=== PATIENT | female | born 1945 | race Caucasian/White ===

== ENCOUNTER 2017-04-01 17:53 | Inpatient (IN) | payer MEDICARE, OTHER ==
[~2017-04-01] VITALS: Ht 180.3 cm; Wt 73.0 kg
[~2017-04-01 17:53] MED LIST: ALLOPURINOL100 MG PO; ARICEPT10 MG PO; ASPIR 8181 MG PO; ATIVAN0.5 MG PO; BUSPIRONE HCL10 MG PO; CIPRO500 MG PO; CIPROFLOXACIN250 MG PO; COUMADIN2.5 MG PO; DIAZEPAM5 MG PO; DONEPEZIL HCL10 MG PO; DONEPEZIL HCL23 MG PO; DONEPEZIL PO; FUROSEMIDE20 MG PO; GEMFIBROZIL600 MG PO; GLIMEPIRIDE2 MG PO; HUMALOG100 UNIT/1 SUB-Q; HUMULIN 70100 UNIT/1 SQ; HYDROCORTISONE20 MG PO; IBUPROFEN IB200 MG PO; LANTUS SOL100 UNIT/1 SUB-Q; LANTUS100 UNIT/1 SUB-Q; LIDOCAINE HCL30 ML TOP; LISINOPRIL2.5 MG PO; LOPERAMIDE2 MG PO; LORAZEPAM0.5 MG PO; MAGNESIUM DR64 MG PO; MORPHINE SULFAT15 M1 PO; MORPHINE SULFAT15 MG PO; MORPHINE SULFAT30 M1 PO; MORPHINE SULFATE IR PO; MS CONTIN15 MG PO; MS CONTIN30 MG PO; NAMENDA XR28 MG PO; NAMENDA5 MG PO; NOVOLOG FL100 UNIT/1; NOVOLOG FL100 UNIT/1 SUB-Q; OMEPRAZOLE20 M1 PO; OMEPRAZOLE20 MG PO; OXYCODONE HCL10 MG PO; OXYCODONE HCL5 MG PO; ROXICODONE15 MG PO; SEROQUEL XR400 MG PO; SEROQUEL400 MG PO; TRAZODONE HCL150 MG PO; TRAZODONE HCL50 MG PO; VIT D; VITAMIN D250000 UNIT PO; VITAMIN D31000 UNI1 PO; WARFARIN SODIU2.5 MG PO; WARFARIN SODIUM5 MG PO; ZYLOPRIM100 MG PO; [UNRECOGNIZED DRUG - OTHER] PO
--- NOTE | 2017-04-01 21:10 | NUR ---
PT ARRIVED TO ROOM 120 FROM ER. PT HAS BEEN NOT FEELING WELL, LESS ENERGY. HAD MADE A "MED ERROR" AND DOUBLE UP SOME OF HER MEDS. SHE IS ALERT, AND ORIENTATED X 3. ABLE TO GET SELF TO HER BED OFF THE STRETCHER. SHE IS KNOWN TO THIS NURSE, AND ANSWERS QUESTION APPROPRIATELY. DR. DUNHAM HERE TO SEE HIM.
--- NOTE | 2017-04-01 21:30 | NUR ---
INFORMED OF PT BP.
--- NOTE | 2017-04-01 22:30 | NUR ---
ATE 100% SANDWICH, UP TO COMMODE TO VOID. SLEEPS OFF AND ON. HAS CHRONIC PAIN ISSUES, TAKES PAIN MEDS ROUTINELY. PT USES A FRONT WHEELED WALKER AT HOME, HAS A PAID CAREGIVER WHO COMES IN TO HER HOME HERE IN [place] AND ASSISTS, DOES HOUSEWORK. PT STATES SHE BATHES SELF, PUT HER PILLS IN PILL MINDERS HERSLEF. NS BOLUS INFUSING.
--- NOTE | 2017-04-02 00:15 | NUR ---
UP TO VOID, 800. ONE PERSON ASSIST, NO COMPLAINTS. USING CALL LIGHT APPROPRIATELY. SLEEPING PRIOR TO USING THE TOILET.
--- NOTE | 2017-04-02 02:21 | NUR ---
EYES CLOSED, RESP EVEN AND UNLABORED.
--- NOTE | 2017-04-02 05:22 | NUR ---
PT UP IN RECLINER CHAIR. TRIED TO VOID BUT UNSUCCESSFUL, SHE STATES NOT UNUSUAL FOR HER. OFTEN FEELS LIKE SHE NEEDS TO GO BUT THEN CAN'T. HAS VOIDED QUANITY SUFFICIENT THIS SHIFT. DOES NOT LIKE WATER, SAYS WATER MAKES HER VOMIT. HAS A DIET SODA AT CHAIR SIDE. HAS CALL LIGHT WITHIN HER REACH. LABS DRAWN PER ORDERS. PT IS A SBA WITH FWW.
--- NOTE | 2017-04-02 05:22 | NUR ---
PT IN BED, EYES CLOSED, RESP EVEN UNLABORED. HAS NOT USED CALL LIGHT FOR PAST 2 HOURS. IV INFUSING.
--- NOTE | 2017-04-02 06:55 | NUR ---
PT YAHIRY GOING BACK TO BED AFTER BEING UP IN CHAIR FOR COUPLE HOURS. HAS NOT HAD ANY COMPLAINTS. IV CONTINUES INFUSING. NO NAUSEA COMPLAINED OF. ONE PERSON ASSIST, HAS VOIDED 2 X SINCE ADMISSION, WITH NO COMPLAINTS OF DISCOMFORT.
--- NOTE | 2017-04-02 07:26 | NUR ---
PATIENT AWAKE RESTING IN BED. I BROUGHT IN MENU TO ORDER BREAKFAST. I ORDERED HER BREAKFAST AND GOT HER FRESH ICE WATER. PATIENT STATES SHE DOES NOT NEED ANYTHING AT THIS TIME. CALL LIGHT IS IN REACH.
--- NOTE | 2017-04-02 07:48 | NUR ---
BEDSIDE HANDOFF REPORT RECEIVED FROM BOILER HOUSE SUPERVISOR RN. PT RESTING IN BED. IV FLUIDS NS AT 125 ML/HR. PT DENIES NEEDS AT THIS TIME.
--- NOTE | 2017-04-02 07:59 | NUR ---
PT BLOOD GLUCOSE 98, SLIDING SCALE INSULIN HELD. ASSISTED PT WITH BREAKFAST TRAY SET UP. PT DENIES NEEDS AT THIS TIME.
--- NOTE | 2017-04-02 08:19 | NUR ---
PT ASSISTED TO BATHROOM, 1PA WITH FWW. PT COMPLETED BREAKFAST, ATE 75%.
--- NOTE | 2017-04-02 08:30 | NUR ---
PT RESTING IN BED. PT LUNG SOUNDS CLEAR. PT RATIGN PAIN 03/31, CHRONIC ARTHRITIS PAIN. PT WITH IV FLUIDS INFUSING AT 125 ML/HR. PT TOLERATING ADA DIET, 10 UNITS LEVEMIR GIVEN, SS HELD. PT 1PA TO BATHROOM, HAD LARGE BM. PT WITH EDEMA TO BILATERAL LOWER LEGS 1+. PT DENIES NEEDS AT THIS TIME.
--- NOTE | 2017-04-02 10:34 | NUR ---
PATIENT IS SLEEPING IN BED. DID NOT DISTURB.
--- NOTE | 2017-04-02 11:29 | NUR ---
PT ASSISTED TO GERALDOKL IN [facility], TOLERATED WELL. PT DENIES NEEDS AT THIS TIME.
[2017-04-02] MEDS ORDERED: MORPHINE SULFAT15 MG PO (11:44)
--- NOTE | 2017-04-02 12:00 | NUR ---
PT RESTING IN CHAIR, EATING LUCH. PT LUNG SOUNDS CLEAR. PT ALERT/ORIENTED. NO ACUTE CHANGES. PT STATING SHE IS READY TO GO HOME. PT DENIES NEEDS AT THIS TIME.
[2017-04-02] MEDS ORDERED: CIPRO500 MG PO (12:44)
[2017-04-02] MEDS ORDERED: ZESTRIL2.5 MG PO (12:48)
--- NOTE | 2017-04-02 12:49 | NUR ---
MED REC COMPLETE--PATIENT INTERVIEW
--- NOTE | 2017-04-02 18:24 | EKG ---
[facility] [address] [place], [place] [address] Signed Normal sinus rhythm Normal ECG When compared with ECG of 05-FEB-2017 15:43, Nonspecific T wave abnormality, improved in Anterior leads Confirmed by CONCEPCION DUNHAM MD ([id number]) on 04/02/2017 6:24:08 PM Electronically Signed By: CONCEPCION DUNHAM MD 04/02/17 1824 PATIENT NAME: ERIK CHAVEZ Electrocardiogram DATE OF : 45 PHYSICIAN: CONCEPCION DUNHAM MD REPORT #: [id number] REPORT IS CONFIDENTIAL AND NOT TO BE RELEASED WITHOUT AUTHORIZATION
[2017-10-05] MEDS ORDERED: IBUPROFEN400 MG PO (12:18)
== END 2017-04-02 13:28 | disposition home or self-care (01) | DRG 682 ==
LOC: ED 17:53 → MS 17:54
PROVIDERS: ADMIT Internal Medicine
DX: N17.9 Acute kidney failure, unspecified (principal); G93.41 Metabolic encephalopathy; N39.0 Urinary tract infection, site not specified; F11.20 Opioid dependence, uncomplicated; E11.9 Type 2 diabetes mellitus without complications; Z79.4 Long term (current) use of insulin; F31.9 Bipolar disorder, unspecified; G30.9 Alzheimer's disease, unspecified; F02.80 Dementia in other diseases classified elsewhere, unspecified severity, without behavioral disturbance, psychotic disturbance, mood disturbance, and anxiety; G89.4 Chronic pain syndrome; K21.9 Gastro-esophageal reflux disease without esophagitis; Z66 Do not resuscitate; Z86.718 Personal history of other venous thrombosis and embolism; E86.0 Dehydration; F41.9 Anxiety disorder, unspecified
CPT/HCPCS: 36415; 71010; 80053; 81001; 83735; 84484; 85025; 87077; 87088; 87186; 93005; 93010; G0480; J0744; J7030

== ENCOUNTER 2017-04-08 22:01 | Emergency (ER) | payer MEDICARE, OTHER ==
[~2017-04-08] VITALS: Ht 180.3 cm; Wt 70.8 kg
[~2017-04-08 22:01] MED LIST changes: +ZESTRIL2.5 MG PO
[2017-10-05] MEDS ORDERED: IBUPROFEN400 MG PO (12:18)
== END 2017-04-08 22:56 | disposition home or self-care (01) ==
LOC: ED 22:01
DX: G89.29 Other chronic pain (principal); M25.551 Pain in right hip; W18.30XA Fall on same level, unspecified, initial encounter; E11.9 Type 2 diabetes mellitus without complications; N19 Unspecified kidney failure; I25.2 Old myocardial infarction; I10 Essential (primary) hypertension; G30.9 Alzheimer's disease, unspecified; F02.80 Dementia in other diseases classified elsewhere, unspecified severity, without behavioral disturbance, psychotic disturbance, mood disturbance, and anxiety; Z86.718 Personal history of other venous thrombosis and embolism; Z88.0 Allergy status to penicillin; Z88.4 Allergy status to anesthetic agent; Z88.1 Allergy status to other antibiotic agents; Z88.7 Allergy status to serum and vaccine; Z88.8 Allergy status to other drugs, medicaments and biological substances; Z90.710 Acquired absence of both cervix and uterus; Z91.040 Latex allergy status; Z88.2 Allergy status to sulfonamides; Z79.4 Long term (current) use of insulin; Z79.899 Other long term (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
CPT/HCPCS: 99282

== ENCOUNTER 2017-04-10 12:52 | Inpatient (IN) | payer MEDICARE, OTHER ==
[~2017-04-10] VITALS: Ht 180.3 cm; Wt 70.9 kg
--- NOTE | 2017-04-10 18:08 | NUR ---
PT ARRIVED TO ROOM 129 FROM ER VIA STRETCHER. PT TRANSFERRED TO BED WITH 2 PERSON ASSIST. IVF NORMAL SALINE STARTED AT 100 MLS/HR. ABG COMPLETED BY RT PT ON 3L PER NC WITH SATS 100%. VS TAKEN AND ASSESSMENT COMPLTED. PT DRANK 100% OF CLEAR LIQ DIET. PT MORE AWAKE AND WATCHING TV. HOB ELEVATED, LOWER EXTREMITIES ELEVATED ON PILLOW AND ICE PACK APPLIED TO LEFT ANKLE.
--- NOTE | 2017-04-10 18:55 | NUR ---
PT C/O OF LEFT ANKLE AND KNEE PAIN AND RIGHT HIP PAIN "10". PT MEDICATED WITH TYLENOL 500 MG PO.
--- NOTE | 2017-04-10 19:18 | NUR ---
SATS DECREASED TO 83-85% ON RA WHILE ASLEEP. 02 PLACED AT 2L PER NC, SATS INCREASED TO 99%. PT AWAKENS TO VOICE AND PLACED ON BEDPAN TO VOID.
--- NOTE | 2017-04-10 20:36 | NUR ---
Patient unable to void on bedpan. Up to [facility] with 2 staff members and was non-weight bearing on left leg. Moved well to the commode. Unable to void. Difficulty when moving back to bed due to right knee pain. States "it is broken also". Patient keeps stating "why dont you let me " "why all this commotion over me". Reassurance given. Patient is cooperative with care. No other changes noted.
--- NOTE | 2017-04-10 23:05 | NUR ---
PATIENT HAS YET TO VOID. BLADDER SCANNED FOR 800CC AFTER TRYING TO VOID ON THE BEDPAN AND WAS ASSISTED TO BEDSIDE COMMODE. ON COMMODE SHE HAD A LARGE SOFT STOOL. UPON RETURN TO BED SHE WAS BLADDER SCANNED AND DR DUNHAM WAS NOTIFIED. ORDER TO INSERT VIVEROS WAS OBTAINED.
--- NOTE | 2017-04-10 23:21 | NUR ---
VIVEROS CATHETER PLACED WITHOUT DIFFICULTY. PATIENT IS ALLERGIC TO IODINE SO DASHAWN AREA WAS CLEANED WITH BABY WIPES AND BENZALKONIUM CHLORIDE TOWLETTES.
--- NOTE | 2017-04-10 23:24 | NUR ---
DR DUNHAM INFORMED OF PATIENT NOT VOIDING SINCE ADMISSION DESPITE MULTIPLE ATTEMPTS ON COMMODE AND BEDPAN. BLADDER SCANNED FOR 800CC. ORDER FOR VIVEROS OBTAINED.
--- NOTE | 2017-04-11 02:51 | NUR ---
PT SLEPT APPROXIMATELY 1.5 HOURS. STATES SHE IS HAVING HORRIBLE LEG PAIN. REPOSITIONED FOR COMFORT AND ICE ON THE LEFT LOWER LEG. PAIN MEDS GIVEN ORDERED. NO OTHER CHANGES NOTED.
--- NOTE | 2017-04-11 07:53 | NUR ---
DR. PARKS IN TO ASSESS PT. FX BOOT ORDERED.
--- NOTE | 2017-04-11 08:09 | NUR ---
ACCU CHECK 193, 2 UNITS NOVOLOG INSULIN GIVEN IN LEFT ARM. DR. DUNHAM IN TO ASSESS PT.
--- NOTE | 2017-04-11 09:10 | NUR ---
PT UP TO BSC WITH 2 PERSON ASSIST. PT HAD BM. RT HERE AND FX BOOT ON PT.
--- NOTE | 2017-04-11 10:01 | NUR ---
PT TRANSFERRED FROM [facility] TO SHOWER CHAIR WITH FX BOOT IN PLACE. BOOT REMOVED AND SHOWER GIVEN. PT RETURNED TO ROOM 129 AND TRANSFERRED TO JOSEPHINE CHAIR WITH FX BOOT IN PLACE. LOWER EXTREMITIES ELEVATED AND ICE APPLIED TO LEFT ANKLE AREA. ORAL CARE COMPLETED. OUTREACH PROFESSIONAL IN TO VISIT WITH PT.
--- NOTE | 2017-04-11 10:27 | NUR ---
FIELD START IV IN LEFT ARM DC'D WITH CATH INTACT. 20 GAUGE IV INSERTED IN RIGHT FOREARM AND FLUSHED WITH 10 MLS NORMAL SALINE. PT CARLOS ALBERTO WELL.
--- NOTE | 2017-04-11 10:58 | NUR ---
PT C/O OF LEFT FOOT PAIN "08/01". MEDICATED WITH TYLENOL 500 MG PO.
--- NOTE | 2017-04-11 11:41 | NUR ---
O.T. HERE TO VISIT WITH PT.
--- NOTE | 2017-04-11 11:50 | NUR ---
ASSESSMENT COMPLETED, PT REMAINS IN JOSEPHINE CHAIR WITH FEET ELEVATED.
[2017-04-11] MEDS ORDERED: GABAPENTIN100 MG PO (12:31)
[2017-04-11] MEDS ORDERED: LISINOPRIL2.5 MG PO (12:33)
[2017-04-11] MEDS ORDERED: MAG6464 MG PO (12:34)
--- NOTE | 2017-04-11 12:50 | NUR ---
PT UP TO BSC WITH 2 PERSON ASSIST,HAD LARGE BM. RETURNED TO JOSEPHINE CHAIR AND TRANSFERRED TO ROOM 116 ON MED/SURG. REPORT GIVEN TO CAMELIA PEREZ.
--- NOTE | 2017-04-11 13:00 | NUR ---
PT TRANSFERRED FROM CCU TO ROOM 116. ORIENTED TO ROOM AND CALL LIGHT. ASSESSMENT COMPLETE. VSS. POC DISCUSSED WITH PT. PT AGREEABLE.
--- NOTE | 2017-04-11 14:15 | NUR ---
MED REC COMPLETE WITH MEDICATION LIST FROM [facility] AND [facility] REFILL HISTORY.
--- NOTE | 2017-04-11 15:00 | NUR ---
SCHEDULED MEDS AND WARMS BLANKETS PROVIDED. PT RESTS COMFORTABLY.
--- NOTE | 2017-04-11 17:15 | NUR ---
PT BEDSIDE BLOOD GLUCOSE 174. PT REFUSES 1 UNIT DOSE OF NOVOLOG INSULIN. DINNER, 1800 ABDIEL ADA DIET EATEN.
--- NOTE | 2017-04-11 18:00 | NUR ---
VISITS WITH MANAGER STORY. DENIES NEEDS
--- NOTE | 2017-04-11 21:09 | NUR ---
PATIENT BLOOD SUGAR CHECK 213 - PATIENT TO RECEIVE 2 UNITS NOVOLOG AND LEVEMIR 10 UNITS SCHEDULED. PATIENT REFUSES NIGHT INSULIN - "I DON'T NEED IT AND WON'T TAKE THAT TONIGHT" - DR DUNHAM NOTIFIED VIA TELEPHONE - NO NEW ORDERS
--- NOTE | 2017-04-12 02:45 | NUR ---
PATIENT RESTING IN BED, DENIES COMPLAINTS AT THIS TIME. LLE ELEVATED
--- NOTE | 2017-04-12 06:05 | NUR ---
PATIENT SLEPT WELL THRU THE NIGHT. LLE ELEVATED ON PILLOW, PATIENT REPOSITIONED NEEDED. VIVEROS DRAINING YELLOW URINE QS.
--- NOTE | 2017-04-12 07:45 | NUR ---
patient was asleep i woke her up to ask about am care, she said she would call when she was ready and went back to sleep. will check back in when her breakfast arrives.
--- NOTE | 2017-04-12 08:30 | NUR ---
PT RESTING IN BED WITH EYES CLOSED, AWOKE EASILY TO VOICE. PT ORIENTED TO ALL. MEDICATED WITH PRN NORCO PER REQUEST FOR 7/10 GENERALIZED PAIN. DENIES NAUSEA. LEFT FOOT ELEVATED ON PILLOWS, BOOT IN PLACE. CALLS APPROPRIATELY.
--- NOTE | 2017-04-12 09:30 | NUR ---
PT WORKED WITH PCamposT. PT UP TO RECLINER WITH 1PA AND FWW. CALL LIGHT WITHIN REACH.
--- NOTE | 2017-04-12 10:15 | NUR ---
PATIENT WAS GOING TO GET INTO THE SHOWER, HER WOUND BEGAN TO BLEED, NURSE IS CHANGING HER DRESSING AND WE WILL RE ADRESS HAVING A SHOWER AFTER THE DOCTOR EXAMS HER.
--- NOTE | 2017-04-12 11:15 | NUR ---
PT ASSISTED BACK TO BED FROM RECLINER. TRANSFERED WITH WITH SBA AND FWW. PERSONAL ITEMS AND CALL LIGHT WITHIN REACH.
--- NOTE | 2017-04-12 11:56 | NUR ---
FELICE JOEL'Sonny AT THIS TIME, PT CARLOS ALBERTO WELL.
--- NOTE | 2017-04-12 14:41 | NUR ---
PT LYING IN BED WITH EYES CLOSED, RESP EVEN AND UNLABORED.
--- NOTE | 2017-04-12 17:43 | NUR ---
PT ASSISTED TO COMMODE FROM RECLINER, 1 PA WITH WALKER. PT ATTEMPTING TO VOID.
--- NOTE | 2017-04-12 18:06 | NUR ---
PT UP TO CHAIR THIS SHIFT, WORKED WITH Raul HUDDLESTON FOR C/O GENERALIZED PAIN. LEFT FOOT KEPT ELEVATED WITH BOOT IN PLACE. ADA DIET WITH BG CHECKS. FELICE SHUKLA, PT DUE TO VOID. ALERT AND ORIENTED THROUGHOUT SHIFT. CALLS APPROPRIATELY.
--- NOTE | 2017-04-12 18:25 | NUR ---
PT HAS ATTEMPTED TO VOID WITH NO SUCCESS. BLADDER SCANNED FOR 442ML. NOTIFIED DR. DUNHAM. ORDERS TO MONITOR AND REASSESS LATER.
--- NOTE | 2017-04-12 21:00 | NUR ---
CURRENTLY UP ON BSC. TOETOUCH WT BEAR LT FOOT, RIGHT KNEE AND ANKLE ACEWRAPPED. STATES RIGHT LEG HURTS WELL. MED WITH PRN PAIN MEDICATION PRIOR TO TRANSFER. PT STATES HER CAREGIVER WAS "fired by the state", VISITED WITH PT HER OPTIONS OF SNF DUE TO NEEDING MORE CARE AT THIS TIME. SHE CONTINUES TO FILL HER OWN PILL MINDERS, DESPITE HER LIMITED EYESITE, AND STATED MEMORY ISSUES. THIS PT IS KNOWN TO THIS NURSE FOR 4+ YEARS IN AN ASSISTED LIVING SETTING WHERE SHE RESIDED FOR SEVERAL YEARS PRIOR TO LIVING INDEPENDENTLY.
--- NOTE | 2017-04-13 00:45 | NUR ---
PT WOKE WHEN DOOR OPENED. HAS BEEN "SLEEPING" SHE STATES.
--- NOTE | 2017-04-13 02:32 | NUR ---
COMPLAINS PAIN ALL OVER, WANTED UP IN HER CHAIR. MED WITH PRN PAIN MED. PT REQUESTS A SHOWER TODAY. WILL LET THE DAYSHIFT RN KNOW AND WILL BE ARRANGED.
--- NOTE | 2017-04-13 04:43 | NUR ---
EYES CLOSED, RESP EVEN AND UNLABORED.
--- NOTE | 2017-04-13 06:40 | NUR ---
PT CURRENTLY UP IN HER CHAIR. NEEDS REMINDERS TO TOUCH TOE WT BEAR LEFT FOOT, COMPLAINS HER RIGHT LEG HURTS MORE. HAS BEEN MEDICATED FOR PAIN, HAS CHRONIC PEARL MAKER PAIN COMPLAINTS. VOIDED 700 AFTER 0630, PT STATES SHE GOES "AROUND THIS TIME". FX BOOT REMAINED ON LEFT FOOT, PT SAT UP DURING NIGHT IN CHAIR, STATES SHE DIDN'T SLEEP MUCH. DID SEE PT WITH EYES CLOSED SEVERAL TIMES BUT PT FEELS SHE DIDN'T SLEEP WELL, DID STATE SHE SLEPT "ALOT" YESTERDAY.
--- NOTE | 2017-04-13 07:51 | NUR ---
PT SITTING UP IN RECLINER, EATING BREAKFAST. AM BG 128, NO SSI INDICATED. PT RATED PAIN 8/10, "ALL OVER", GAVE NORCO 5/325 MG 1 TAB PO PRN. LEFT FOOT/ANKLE IN BOOT, PT HAS CHRONIC NEUROPATHY, CMS WNL WITH EXCEPTION OF CHRONIC NUMBNESS TO FEET AND TOES.
--- NOTE | 2017-04-13 11:49 | NUR ---
PT UP TO BEDSIDE COMMODE, HAD LARGE FORMED SOFT BM, THEN TO RECLINER WITH 1 PERSON ASSIST WITH FWW, USING TTWB TO LLE. BG CHECKED, 176, WHICH CALLS FOR 2 UNITS SSI. PT REFUSED SSI.
--- NOTE | 2017-04-13 12:48 | NUR ---
PT C/O 10/10 PAIN "ALL OVER". GAVE NORCO 5/325 MG 2 TABS PO. PT SITTING UP IN RECLINER, IS USING INSENTIVE SPIROMETER WITH COACHING FROM RESPIRATORY THERAPIST.
[2017-04-13] MEDS ORDERED: HYDROCODON-ACE1 EA10 PO (13:29)
[2017-04-13] MEDS ORDERED: SEROQUEL XR400 MG PO (13:31)
--- NOTE | 2017-04-13 13:31 | NUR ---
PT REQUESTED ARTIFICIAL TEARS, NOTIFIED DR. DUNHAM OF PT'S REQUEST. DR. DUNHAM PLACED ORDER FOR ARTIFICIAL TEARS.
[2017-04-13] MEDS ORDERED: LANTUS SOL100 UNIT/1 SUB-Q (13:46)
--- NOTE | 2017-04-13 15:44 | NUR ---
PT GIVEN ARTIFICIAL TEARS PER HER REQUEST. DENIED OTHER NEEDS AT THIS TIME.
--- NOTE | 2017-04-13 16:23 | NUR ---
PT'S BG 155, WHICH CALLS FOR 1 UNIT SSI. PT REFUSED 1 UNIT SSI FOR BG OF 155.
--- NOTE | 2017-04-13 17:17 | NUR ---
PT C/O 9/10 PAIN TO BILATERAL ANKLES, "ALL OVER", AND HEADACHE. GAVE NORCO 5/325 MG PO PRN.
--- NOTE | 2017-04-13 17:33 | NUR ---
PT DOING WELL THIS SHIFT. TRANSFERS AND AMBULATES SHORT DISTANCES WITH 1 PERSON MINIMAL ASSIST, WITH VERBAL CUES TO MAINTAIN TOUCH TOE WEIGHT BEARING TO LEFT LOWER EXTREMITY. PT C/O GENERALIZED PAIN, WELL PAIN TO BILATERAL ANKLES, PRN NORCO GIVEN, LAST DOSE AT 1716, 2 TABS. URINE OUTPUT QUANTITY SUFFICIENT. HAD BM THIS SHIFT. LUNGS CTA, PT ON RA.
--- NOTE | 2017-04-13 20:03 | NUR ---
PT RESTING IN BED CURRENTLY. STATES SHE DOESN'T FEEL GREAT, THINKS HER COLD SX HAVE RETURNED, NO NASAL DRAINAGE, NO COUGH, HAS CHRONIC PAIN WHICH SHE TAKES MEDICATION FOR ROUTINELY A PRN AT HOME. STATES HER RIGHT LEG HURTS WORSE THAN THE LEFT, CMS ADEQUATE TO BOTH FEET, HAS NEUROPHATHY IN FEET, WITH DECREASE SENSATION.
--- NOTE | 2017-04-13 22:30 | NUR ---
IN BED, EYES OPEN WHEN RN CAME INTO ROOM. SAYS SHE HASN'T BEEN SLEEPING. STATES SHE NAPPED SEVERAL TIMES TODAY.
--- NOTE | 2017-04-14 02:32 | NUR ---
PT WITH EYES CLOSED, RESP EVEN AND UNLABORED. DID NOT OPEN EYES WHEN DOOR OPENED.
--- NOTE | 2017-04-14 04:26 | NUR ---
PT COMPLAINED OF PAIN ALL OVER. MEDICATED. USED COMMODE,ONE PERSON ITZEL ASSIST WITH FRONT WHEELED WALKER
--- NOTE | 2017-04-14 05:53 | NUR ---
PT CURRENTLY SLEEPING. HAS BEEN MEDICATED FOR PAIN X 2 THIS SHIFT, PREFERING 2 NORCO VS ONE. CHRONIC BUYER PLANNER USE OF MS CONTIN AT HOME. LEFT ANKLE CMS INTACT, HAS NEUROPATHY. USES A FRONT WHEELED WALKER FOR TRANSFERS WITH ITZEL ASSISTANCE. RIGHT LEG CMS ADEQUATE, WRAPPED WITH KERLIX AT ANKLE WELL KNEE. STATED WHEN PAIN MED GIVEN EARLIER, "I HAVE SLEPT ALL NIGHT" WHICH IS BETTER THAN THE NIGHT BEFORE. ASKED WHEN SHE WOULD BE GOING TO [facility].
--- NOTE | 2017-04-14 07:44 | NUR ---
BEDSIDE REPORT RECEIVED FROM NAUN PEREZ. PT AWAKE SITTING UP IN BED. HISTORY OF ALZHEIMERS. WILL EXPECT DISCHARGE TO [place] TODAY. LEFT ANKLE IN SURGICAL BOOT. RIGHT ANKLE WRAPPED WITH RENE WRAP. NO COMPLAINTS AT THIS TIME.
--- NOTE | 2017-04-14 07:45 | NUR ---
PATIENT UP TO CHAIR FOR BREAKFAST. HANDS AND FACE WASHED. HAIR COMBED. ORAL CARE DONE. PATIENT REFUSED A BATH THIS AM. MAY TRY AGAIN BEFORE SHE GOES TO SNF TODAY. CALL BUTTON IN REACH. WARM BLANKET GIVEN. NO OTHER NEEDS AT THIS TIME.
--- NOTE | 2017-04-14 09:33 | NUR ---
FAXED CHART NOTES TO [facility], TALKED WITH SHELTON AT T. FAX INCLUDED FACESHEET, ER NOTES, H AND P, PROG NOTES, DC NOTE, IMAGING, MEDS, LABS, AND PT AND OT EVAL AND NOTES.
--- NOTE | 2017-04-14 09:54 | NUR ---
PATIENT RESTING IN BED WITH EYES CLOSED. CALL BUTTON IN REACH.
--- NOTE | 2017-04-14 17:59 | NUR ---
PATIENT UP IN CHAIR WITH CALL BUTTON REACH. FRESH ICE GIVEN. NO OTHER NEEDS AT THIS TIME.
--- NOTE | 2017-04-14 18:17 | NUR ---
ALZHEIMER'S DEMENTIA. SBA/1PA WITH FWW-- TOE TOUCH WB LEFT LEG. SURGICAL BOOT ON. RENE WRAP ON RIGHT ANKLE AND KNEE. BEDSIDE COMMODE. NORUT X3 TODAY. TO [place] TOMORROW.
--- NOTE | 2017-04-14 19:45 | NUR ---
IN TO MEET PT, PT UP TO CHAIR. TRANSFERRED BACK TO BED WITH 1 PERSON ASSIST. FRESH WATER AND CALL LIGHT WITHIN REACH.
--- NOTE | 2017-04-14 22:20 | NUR ---
IN TO CHECK ON PT, PT UP TO BSC WITH ASSIST WITH WALKER AND STAND BY. CALL LIGHT WITHIN REACH.
--- NOTE | 2017-04-15 01:51 | NUR ---
IN TO CHECK ON PT, PT APPEARS TO BE SLEEPING. RESPIRATION EVEN, NO APPARENT DISTRESS. CALL LIGHT WITHIN REACH.
--- NOTE | 2017-04-15 03:45 | NUR ---
IN TO CHECK ON PT, PT APPEARS TO BE SLEEPING. RESPIRATIONS EVEN, NO APPARENT DISTRESS. WATER AND CALL LIGHT WITHIN REACH.
--- NOTE | 2017-04-15 04:37 | NUR ---
IN TO CHECK ON PT, PT AWAKE, ALERT, NO OBVIOUS SIGN OF DISTRESS. PT C/O GENERALIZED PAIN 05/01. NORCO GIVEN PER PT REQUEST. FRESH SODA GIVEN AND CALL LIGHT WITHIN REACH.
--- NOTE | 2017-04-15 05:37 | NUR ---
PT HAS RESTED WELL THROUGH OUT THE SHIFT. UP TO BSC WITH WALKER AND 1 PERSON ASSIT. PT IS TOUCH DOWN WEIGHT BEARING FOR L ANKLE FX. PT C/O GENERALIZED PAIN, NORCO GIVEN. PT AWAITING DISCHARGE TO [facility].
--- NOTE | 2017-04-15 09:02 | NUR ---
PT UP IN RECLINER FOR BREAKFAST. REPORTS PAIN 05/01, NORCO ADMINSTERED AM BED PASS. PT ALERT AND ORIENTED
--- NOTE | 2017-04-15 10:13 | NUR ---
THIS PT VERY RECEPTIVE TO PRAYER. SHE IS GLAD TO BE GOING TO [facility] THIS AFTERNOON FOR 3 TO 4 WEEKS OF RECOVERY, LOOKING FORWARD TO GETTING BACK TO HER OWN HOME. HER ATTITUDE IS VERY GOOD.
--- NOTE | 2017-04-15 11:09 | NUR ---
PT IS LYING IN BED.PT AGREED TO SHOWER.
--- NOTE | 2017-04-15 11:29 | NUR ---
PT UP TO SHOWER WITH ASIC ENGINEER AT THIS TIME.
--- NOTE | 2017-04-15 11:49 | NUR ---
ASSISTED PATIENT WITH SHOWER. DASHAWN CARE DONE. REFUSED SHAMPOO. ORAL CARE DONE. PATIENT SITTING UP IN BED EATING LUNCH. PACKED TO BE DISCHARGED TO SNF. CALL BUTTON IN REACH.
--- NOTE | 2017-04-15 12:17 | NUR ---
PT RESTING IN BED AFTER SHOWER HAS CONSUMED 50% OF LUNCH AND IS NOW WAITING FOR TRANSPORT TO [facility]. PT VERBALIZED NO FURTHER REQUESTS OR CONCERNS AT THIS TIME
--- NOTE | 2017-04-15 12:55 | NUR ---
PT REPORT CALLED TO [facility] TO COURTNEY PEREZ.
[2017-10-05] MEDS ORDERED: IBUPROFEN400 MG PO (12:18)
== END 2017-04-15 12:43 | disposition home or self-care (01) | DRG 70 ==
LOC: ED 12:52 → CCU 16:10 → MS 04-11 13:00
PROVIDERS: ADMIT Internal Medicine
DX: G93.41 Metabolic encephalopathy (principal); J96.02 Acute respiratory failure with hypercapnia; J96.01 Acute respiratory failure with hypoxia; I13.0 Hypertensive heart and chronic kidney disease with heart failure and stage 1 through stage 4 chronic kidney disease, or unspecified chronic kidney disease; N18.4 Chronic kidney disease, stage 4 (severe); E86.0 Dehydration; S70.01XA Contusion of right hip, initial encounter; W19.XXXA Unspecified fall, initial encounter; T40.2X5A Adverse effect of other opioids, initial encounter; I25.10 Atherosclerotic heart disease of native coronary artery without angina pectoris; I50.9 Heart failure, unspecified; S82.842A Displaced bimalleolar fracture of left lower leg, initial encounter for closed fracture; Z91.81 History of falling; R33.9 Retention of urine, unspecified; F31.9 Bipolar disorder, unspecified; F03.90 Unspecified dementia, unspecified severity, without behavioral disturbance, psychotic disturbance, mood disturbance, and anxiety; K21.9 Gastro-esophageal reflux disease without esophagitis; F41.9 Anxiety disorder, unspecified; G89.4 Chronic pain syndrome; I25.2 Old myocardial infarction
CPT/HCPCS: 36415; 36600; 51702; 51798; 71010; 73610; 80053; 80069; 81001; 82803; 83036; 83735; 85025; 87088; 94668; 97110; 97163; 97165; 97530; J2310; J7030

== ENCOUNTER 2017-10-05 11:37 | Inpatient (IN) | payer MEDICARE, OTHER ==
[~2017-10-05] VITALS: Ht 182.9 cm; Wt 81.7 kg
--- OUTSIDE RECORDS SUMMARY | ~2017-10-05 | XMS | Clinical Summary ---
Demographics + + + | Address | [address] | | | [place] [address] | + + + | Home Phone | | + + + | Preferred Language | Unknown | + + + | Marital Status | Single | + + + | Sikhism Affiliation | PRE | + + + [...] Team Providers + +------+ + | Care Alliance Consultant Name | Role | Phone | + +------+ + | Vladislav Goel MD | PP | Unavailable | + +------+ + Source Comments GAGAN is fully live on both [facility] and [facility] InPatient.Formerly [facility] Allergies + + + + + + [...] St | | Kimber is c/w MTX [id number] | + + +-------+ + | Fever [...] + + | Overview: From tape at [facility] - verbal history | + + Social [...]
--- OUTSIDE RECORDS SUMMARY | ~2017-10-05 | XMS | Clinical Summary ---
Demographics + + + | Address | [address] | | | [place] [address] | + + + | Home Phone | | + + + | Preferred Language | Unknown | + + + | Marital Status | Single | + + + | Amish Affiliation | PRE | + + + [...] Team Providers + +------+ + | Care Brazing Machine Operator Name | Role | Phone | + +------+ + | Vladislav Goel MD | PP | Unavailable | + +------+ + Source Comments GAGAN is fully live on both [facility] and [facility] InPatient.[facility] Allergies + + + + + + [...] St | | Kimber is c/w MTX [id number] | + + +-------+ + | Fever [...] + + | Overview: From tape at [facility] - verbal history | + + Social [...]
--- OUTSIDE RECORDS SUMMARY | ~2017-10-05 | XMS | Clinical Summary ---
Demographics + + + | Address | [address] | | | [place] [address] | + + + | Home Phone | | + + + | Preferred Language | Unknown | + + + | Marital Status | Single | + + + | Scientologist Affiliation | PRE | + + + [...] Team Providers + +------+ + | Care Filter Helper Name | Role | Phone | + +------+ + | Vladislav Goel MD | PP | Unavailable | + +------+ + Source Comments GAGAN is fully live on both [facility] and [facility] Allergies + + + + + [...] St | | Kimber is c/w MTX [id number] | + + +-------+ + | Fever [...] | Overview: From tape at [facility] - verbal history | + [...]
[~2017-10-05 11:37] MED LIST changes: +GABAPENTIN100 MG PO; +HYDROCODON-ACE1 EA10 PO; +MAG6464 MG PO
[2017-10-05] MEDS ORDERED: NORCO 7.5-3251 EACH PO (12:14)
[2017-10-05] MEDS ORDERED: VITAMIN D32000 UNIT PO (12:16)
[2017-10-05] MEDS ORDERED: FUROSEMIDE20 MG PO (12:20)
[2017-10-05] MEDS ORDERED: LISINOPRIL2.5 MG PO (12:21)
--- NOTE | 2017-10-05 18:47 | NUR ---
NEW ED ADMIT. FALL AT HOME. CONFUSED. WATCH CLOSELY! WILL PULL IV OUT IF NOT PAYING ATTENTION. HALLUCINATING. RIGHT HIP FX. LIVES ALONE AT HOME. VIVEROS REMOVED IN ED. WATCH UO. NON-OPERABLE HIP. LFA IV. CIPRO IV. D5NS @ 100. CLEAR LIQUID DIET.
--- NOTE | 2017-10-05 19:49 | NUR ---
RECIEVED REPORT FROM DAY SHIFT RN. PT UP IN BED. VISITORS AT BEDSIDE. TITRATED TO 1L O2 SATING AT 98%. PT REPORTS HEADACHE AT THIS TIME. AGREES TO PAIN MEDICATION TO BE TAKEN WITH NIGHT TIME MEDS. D5NS @ 100ML. PT ON CONTINUE PULSE OX. NO OTHER NEEDS AT THIS TIME. CALL LIGHT WITH IN REACH. VISIBLE FRO MNURSES STATION.
--- NOTE | 2017-10-05 20:11 | NUR ---
UPON REASSESSMENT OF PAIN PT REPORTED PAIN 9/10 WITH NO DECREASE IN PAIN. STATED SHE TAKES NORCO 2 PILLS 3 TIMES A DAY. I REMINDED THE PT HER NORCO WAS 7.5 MG AND WE WOULD GIVE IT A LITTLE MORE TIME TO KICK IN. PT AGREED.
--- NOTE | 2017-10-05 20:13 | NUR ---
PT SCD'S, HEEL PROTECTORS, AND TEDHOSE PUT IN PLACE. BLADDERED SCANNED. 344. ANDRINA INFORMED .MARCO ORDERS RECIEVED.
--- NOTE | 2017-10-05 21:03 | NUR ---
PATIENT HAS NOT VOIDED SINCE ARRIVAL TO THE FLOOR. PATIENT BLADDER SCANNED FOR 344ML. PATIENT PLACED ON BED RUSSELL AND WAS UNSUCESSFUL TO VOID. PATIENT DENIES ANY NEEDS AT THIS TIME. CALL LIGHT IN REACH AND BED ALARM PLACED ON FOR SAFETY.
--- NOTE | 2017-10-05 21:44 | NUR ---
PATIENT HAS NOT VOIDED SINCE ARRIVAL TO THE FLOOR. PLACED CALL TO DR. PARKS. RECEIVED VERBAL ORDER TO STRAIGHT CATH PATIENT SHOULD HER BLADDER SCAN BE 500-600ML, OFFER BED RUSSELL FIRST, AND TO ONLY STARIGHT CATH-NO VIVEROS LEFT IN PLACE. WILL CONTINUE TO MONITOR PATIENT.
--- NOTE | 2017-10-05 22:48 | NUR ---
PT APPEARS TO BE SLEEPING. RESPIRATIONS ARE EQUAL AND UNLABORED. WILL CONTINUE TO MONITOR PAIN LEVEL. WILL LET PT SLEEP AT THIS TIME.
--- NOTE | 2017-10-06 00:10 | NUR ---
BLADDER SCANNER SHOWED 572 ML. STRAIGHT CATHED PT WITH 14 FRINGE CATH. PT TOLLERATED WELL. 700ML RETURNED. URINE WAS CLEAR AND YELLOW. PT IS BACK TO BED. CALL LIGHT WITHIN REACH.
--- NOTE | 2017-10-06 02:20 | NUR ---
pt sleeping. respirations equal and unlabored. iv infusing. o2 @ 1l/min. visable from nursing station. call light within reach.
--- NOTE | 2017-10-06 04:30 | NUR ---
pt sleeping repisations equal and unlabored. pt visable from nursing station. calll ight within reach.
--- NOTE | 2017-10-06 05:20 | NUR ---
PATIENT ALERTED STAFF THAT SHE WAS HAVING AN INCREASE IN PAIN. PATIENT RATES PAIN AT A 8/10 "ALL OVER". PATIENT GIVEN PRN PAIN MEDICATION PER ORDER. PATIENT CONTINUES TO WEAR SCDS, TEDHOSE, AND HEEL PROTECTORS. PATIENT IS ABLE TO STATE WHERE SHE IS, WHY SHE IS HERE, THE DATE, MONTH AND YEAR. PATIENT IS SLOW TO ANSWER. PATIENT DENIES ANY FURTHER NEEDS. CALL LIGHT IN REACH AND BED ALARM IS ON FOR SAFETY.
--- NOTE | 2017-10-06 06:38 | NUR ---
VITALS AND I&OS DONE AND CHARTED. PT HAS NOT URINATED FOR ABOUT FOUR HOURS. HER RN RENAN IS AWARE. PT NEEDS NOTHING ELSE AT THIS TIME. BEDSIDE TABLE AND CALL LIGHT WITHIN REACH.
--- NOTE | 2017-10-06 06:52 | NUR ---
BLADDER SCANNED PT 627ML.
--- NOTE | 2017-10-06 07:05 | NUR ---
RN AND INSTRUMENT MAKER AND REPAIRER IN ROOM WITH PATIETNT. NO NEEDS AT THIS TIME.
--- NOTE | 2017-10-06 07:11 | EKG ---
[facility] [address] [place], [place] [address] Signed Normal sinus rhythm Normal ECG When compared with ECG of 01-APR-2017 18:26, No significant change was found Confirmed by PAULA DÍAZ MD ([id number]) on 10/06/2017 7:11:34 AM Electronically Signed By: PAULA DÍAZ MD 10/06/17 0711 PATIENT NAME: ERIK CHAVEZ Electrocardiogram DATE OF : 45 PHYSICIAN: PAULA DÍAZ MD REPORT #: [id number] REPORT IS CONFIDENTIAL AND NOT TO BE RELEASED WITHOUT AUTHORIZATION
--- NOTE | 2017-10-06 08:03 | NUR ---
PT AWAKE AND ALERT. APPEARS A&O X4. LFA IV INFUSING D5NS@100. CLEAR LIQUID TRAY AT BEDSIDE. PT REPORTS SHE IS "ALLERGIC TO WATER". PAIN 9/10 GENERALIZED. TOLERATING CLEAR LIQUID DIET. PEDAL PULSES +2 BILAT. WARM EXTREMITIES. WARM BLANKET PROVIDED. C/O BEING COLD.
--- NOTE | 2017-10-06 10:32 | NUR ---
PATIENT RESTING IN BED WATCHING TV. HANDS AND FACE WASHED. REFUSED ORAL CARE. PATIENT STATES THAT HER CAREGIVER IS BRINGING HER OWN ORAL CARE SUPPLIES FROM HOME. FRESH ICE WATER GIVEN. NO OTHER NEEDS AT THIS TIME.
--- NOTE | 2017-10-06 11:12 | NUR ---
pt transferred sba/1pa with physical therapist to [facility]. tolerated very well. pain in right hip minimal. 485ml on bladder scan after back in bed.
--- NOTE | 2017-10-06 12:48 | NUR ---
PATIENT BACK TO BED FROM BSC WITH FWW ONE PERSON ASSIST. PATIENT HAD EXTRA LARGE BM. RN IN ROOM TO INSERT VIVEROS CATH.
--- NOTE | 2017-10-06 13:41 | NUR ---
Medications reconciled RX bottles and Genna's records
--- NOTE | 2017-10-06 14:15 | NUR ---
PATIENT SITTING UP IN BED WATCHING TV. RN IN ROOM. NO OTHER NEEDS AT THIS TIME.
--- NOTE | 2017-10-06 17:28 | NUR ---
1PA FWW TO [facility] ABLE TO TRANSFER WELL. RIGHT HIP FX-- NON OPERABLE. ROOM AIR. LESS CONFUSED TODAY. PHYSICAL THERAPY. CASE RECORD CLERK SALESPERSON. MANASA S/L. ADA DIET.
--- NOTE | 2017-10-06 18:23 | NUR ---
READJUSTED PT IN BED. BOOSTED UP AND SCDs TURNED ON. ATE 100% OF DINNER.
--- NOTE | 2017-10-06 18:40 | NUR ---
PATIENT RESTING IN BED WATCHING TV. BED ALARM ON. CALL BUTTON IN REACH. NO OTHER NEEDS AT THIS TIME.
--- NOTE | 2017-10-06 19:10 | NUR ---
RECEIVED REPORT FROM CARMEN. PT IS AWAKE IN BED WITH VISITORS IN THE ROOM AT THIS TIME. PT HAS NO COMPLAINTS OF PAIN AT THIS TIME, AND HAS SCDS AND HEEL PROTECTORS IN PLACE.
--- NOTE | 2017-10-06 21:00 | NUR ---
PT IS AWAKE IN BED, AND WOULD LIKE TO GO TO SLEEP SOON. REPOSITIONED PT TO HELP WITH HIP PAIN SHE CANNOT HAVE MORE NORCO UNTIL LATER. PT HAS TEDHOSE ON, SCDS, AND HEEL PROTECTORS. BROUGHT PATIENT ICE REQUESTED. EVENING MEDICATIONS AND INSULIN ADMINISTERED PER EMAR. PT'S BS WAS 266. PT'S ASSESSMENT IS COMPLETE AND ENTERED. PT HAS NO FURTHER REQUESTS AT THIS TIME.
--- NOTE | 2017-10-07 00:14 | NUR ---
PATIENT ASKED FOR SNACKS. OFFERED 2 MELITON CRACKERS. ICE CHIPS FOR TEA.
--- NOTE | 2017-10-07 00:21 | NUR ---
PT MOVED TO ROOM 107 WITH HER PERMISSON. ALL BELONGINGS MOVED WITH HER. NEEDED CLOSER ROOM FOR ANOTHER PT.
--- NOTE | 2017-10-07 03:30 | NUR ---
PT IS AWAKE IN BED, ASKED IF SHE NEEDED PULSEOX ON CONTINUOUS. PT HAS BEEN MAINTAINING O2 SAT TURNED CONTINUOUS PULSEOX OFF. PT'S RT FOOT IS WARM AND PT REPORTS FEELING IN HER FOOT TO BE NORMAL FOR HER. SCDS, TEDHOSE, AND HEEL PROTECTORS IN PLACE. PT WAS NOT COMPLAINING OF PAIN BUT WHEN ASKED SAID SHE IS AN 8/10. GAVE PT 2, 7.5 NORCO FOR PAIN PER EMAR ORDERS. VIVEROS IN PLACE AND PT IS VOIDING QUANTITY SUFFICIENT YELLOW URINE. PT DOES NOT WANT ICE AT THIS TIME. IV FLUSHED WITH 10 MLS NS. PT HAS NO FURTHER REQUESTS AT THIS TIME.
--- NOTE | 2017-10-07 05:20 | NUR ---
PT IS RESTING WITH EYES CLOSED RR 14, PT IS FORGETFUL BUT HAS BEEN ALERT WHILE AWAKE. SHE TENDS TO FORGET WHEN SHE HAS HER PAIN MEDS AND TAKES CHRONIC PAIN MEDICINE AT HOME. PER REPORT PT'S PAIN MEDICATION WAS INCREASED TO 1-2 PILLS Q6H BUT PT SAYS SHE TAKES 2 PILLS Q4H. PT RECEIVED 2 NORCO AND IS RESTING COMFORTABLY AT THIS TIME. AES IN PLACE, WITH SCDS AND HEEL PROTECTORS. DURING ASSESSMENTS PT HAS REPORTED HER LEGS HAVE NORMAL SENSATION FOR HER D/T PERIPHERAL NEUROPATHY. ICE WAS OFFERED SEVERAL TIMES DURING SHIFT BUT PT DECLINED. PT HAS BEEN DRINKING TEA THAT SHE STATES IS MADE WITH PURIFIED WATER D/T ALLERGY TO WATER. PT WAS GIVEN INSULIN ORDERED FOR BS OF 266 AT HS.
--- NOTE | 2017-10-07 06:35 | NUR ---
STARTED IV CIPRO AND CLEARED PTS TABLE FOR BREAKFAST. PT HAS NO FURTHER REQUESTS AT THIS TIME.
[2017-10-07] MEDS ORDERED: HYDROCODON-ACE1 EA11 PO (08:30)
--- NOTE | 2017-10-07 08:43 | NUR ---
PT LYING IN BED NOW. SAT UP AT BEDSIDE TO EAT BREAKFAST. WATCHING TV NOW. SALINE LOCKED LFA IV. WILL PLAN TO DISCHARGE TODAY. PLAN FOR XRAY OF HIP AND HOME HEALTH CONSULT BEFORE DISCHARGE.
--- NOTE | 2017-10-07 10:12 | NUR ---
PT IN BED. SET UP FOR MELANIEKCampos NAIDU CHANGE. AM CARE. VITALS DONE
--- NOTE | 2017-10-07 11:44 | NUR ---
PT STATED SHE WANTED HER IV OUT. TOLD NURSE MORALES. NURSE MORALES TOLD ME THAT PT NEEDS TO URINATE ON HER OWN BEFORE SHE CAN GO HOME. GAVE PT A LARGE CUP OF TEA AND ORDERED HER SOME LUNCH.
--- NOTE | 2017-10-07 13:19 | NUR ---
PT URINATED 175ML ON BSC. WILL PLAN TO DISCHARGE PATIENT HOME AFTER FAMILY/FRIEND TRANSPORTATION ARRIVES FOR HER. EDUCATED TO RETURN TO EMERGENCY DEPARTMENT IF UNABLE TO URINATE AT HOME.
--- NOTE | 2017-10-07 14:15 | NUR ---
AT 1408, RUCHI RT CAME TO RN STATION, STATED THAT SHE BELIEVED PT HAD PASSED. THIS RN TO PT'S ROOM AT 1409, NO RESPIRATIONS NOTED, NO PULSE NOTED AT 1410 BY THIS RN OR BY DR. DÍAZ. PT WITHOUT PULSE OR RESPIRATIONS. PT'S FAMILY AT BEDSIDE.
--- NOTE | 2017-10-07 14:18 | NUR ---
AT 1413, NOTIFIED CARMEN, PT'S PRIMARY RN THAT PT HAD NO PULSE OR RESPIRATIONS. CARMEN TO PT'S ROOM.
--- NOTE | 2017-10-07 15:18 | NUR ---
PT RESTING IN BED. SHE IS ALERT AND ORIENTED. PT MENTIONED THAT SHE IS WAITING TO BE DC'D TODAY. APPARENTLY A RIDE HAS BEEN ARRANGED FOR PT. SHE SEEMED PLEASED I STOPPED BY, REQUESTED PRAYER. WILL FOLLOW NEEDED
--- NOTE | 2017-10-07 15:30 | NUR ---
FAXED CHART NOTES INCLUDING FACESHEET, ORDER, H AND P, DC NOTE, AND PT EVAL. TALKED WITH NAKUL ABOUT THIS.
--- NOTE | 2017-10-08 08:03 | DS ---
[facility] [address] [place], [place] [address] Signed ADMISSION DATE: 10/05/2017 DISCHARGE DATE: 10/07/2017 ADMISSION DIAGNOSIS: Right greater trochanteric fracture. DISCHARGE DIAGNOSIS: Right greater trochanteric fracture. PROCEDURE PERFORMED: None. BRIEF HISTORY: Erik is a 71-year-old female, who suffered a ground level fall and was found down on the ground by her caregiver. She was transported to the emergency department. Radiographs were relatively negative. CT scan was obtained, which showed a greater trochanteric fracture. The radiologist also read with an extension into the femoral neck. However, I cannot find that and disagree with that finding. I also reviewed that with Dr. Vasquez who agreed with me. We admitted the patient to the hospital for pain control. She was also quite disoriented and confused. She was found to have UTI. She also was taking probably more medication than she should have been. By the next day, her mentation had cleared considerably and she was back to her normal status. I do note this patient from prior injuries. She was mobilized with physical therapy and actually physical therapy had signed off on her by the day of discharge felt that she was back to her baseline of what she normally has at home. She feels like she does not want to go to snf facility and can take care of herself just well at home. We will discharge her to home with physical therapy on in-home basis along with home health. She is home bound and will need care for the next 4 to 6 weeks until her greater trochanter heals and she is able to bear weight on it. Again, she is in need of physical therapy for gait, walker training, toe-touch weightbearing, and quad strengthening. She is homebound due to being unable to leave her house secondary to the weakness, pain, and inability to walk on the right side. She will follow up with me in 10 to 14 days. Juancho Nice MD BA/YONATHANL /[id number] Electronically Signed By: JUANCHO NICE MD 10/08/17 0803 PATIENT NAME: ERIK CHAVEZ DISCHARGE SUMMARY DATE OF : 45 PHYSICIAN: JUANCHO NICE MD REPORT #: [id number] REPORT IS CONFIDENTIAL AND NOT TO BE RELEASED WITHOUT AUTHORIZATION [address] [place] [address] Signed Electronically Signed By: JUANCHO NICE MD 10/08/17 0803 PATIENT NAME: ERIK CHAVEZ DISCHARGE SUMMARY DATE OF : 45 PHYSICIAN: JUANCHO NICE MD REPORT #: [id number] REPORT IS CONFIDENTIAL AND NOT TO BE RELEASED WITHOUT AUTHORIZATION
== END 2017-10-07 15:50 | disposition home or self-care (01) | DRG 536 ==
LOC: ED 11:37 → MS 16:50
PROVIDERS: ADMIT Specialist
DX: S72.111A Displaced fracture of greater trochanter of right femur, initial encounter for closed fracture (principal); N39.0 Urinary tract infection, site not specified; W18.30XA Fall on same level, unspecified, initial encounter; E11.65 Type 2 diabetes mellitus with hyperglycemia; R09.02 Hypoxemia; I10 Essential (primary) hypertension; E11.40 Type 2 diabetes mellitus with diabetic neuropathy, unspecified; G30.9 Alzheimer's disease, unspecified; F02.80 Dementia in other diseases classified elsewhere, unspecified severity, without behavioral disturbance, psychotic disturbance, mood disturbance, and anxiety; Z79.4 Long term (current) use of insulin; Z88.0 Allergy status to penicillin; Z86.718 Personal history of other venous thrombosis and embolism; Z87.891 Personal history of nicotine dependence; Z90.710 Acquired absence of both cervix and uterus
CPT/HCPCS: 36415; 70450; 71045; 73502; 73700; 80053; 81001; 85025; 85610; 87077; 87088; 87186; 93005; 93010; 97162; J0744; J1170; J7030; J7042

== ENCOUNTER 2017-10-17 14:34 | Emergency (ER) | payer MEDICARE, OTHER ==
[~2017-10-17] VITALS: Ht 182.9 cm; Wt 70.3 kg
[~2017-10-17 14:34] MED LIST changes: +HYDROCODON-ACE1 EA11 PO; +NORCO 7.5-3251 EACH PO; +VITAMIN D32000 UNIT PO
--- OUTSIDE RECORDS SUMMARY | 2017-10-17 14:43 | XMS | Clinical Summary ---
Demographics + + + | Address | [address] | | | [place] [address] | + + + | Home Phone | | + + + | Preferred Language | Unknown | + + + | Marital Status | Single | + + + | Restorationism Affiliation | PRE | + + + | Race | White | + + + | Ethnic Group | Not or | + + + Author + + + | Author | [facility] | + + + | Organization | [facility] | + + + | Address | Unknown | + + + | Phone | Unavailable | + + + Support +------+ +---------+ + | Name | Relationship | Address | Phone | +------+ +---------+ + ECON | Unknown | | +------+ +---------+ + Care Team Providers + +------+ + | Care Crime Analyst Name | Role | Phone | + +------+ + | Vladislav Goel MD | PP | Unavailable | + +------+ + Source Comments GAGAN is fully live on both [facility] Ambulatory and [facility] InPatient.[facility] Allergies + + + + + + | Active Allergy | Reactions | Severity | Noted | Comments | | | | | Date | | + + + + + + | Bupropion Hcl | | | 07/15/20 | | | | | | 08 | | + + + + + + | Codeine | | | 07/15/20 | | | | | | 08 | | + + + + + + | Mirtazapine | | | 07/15/20 | | | | | | 08 | | + + + + + + | Gabapentin | | | 10/24/20 | | | | | | 08 | | + + + + + + | Penicillins | | | 10/24/20 | | | | | | 08 | | + + + + + + | Propoxyphene | | | 07/15/20 | | | N-Acetaminophen | | | 08 | | + + + + + + | Sulfa (Sulfonamide | | | 24/20 | | | Antibiotics) | | | 08 | | + + + + + + Current Medications + + +--------+---------+------+------+-------+ | Prescription | Sig. | Disp. | Refills | Star | End | Statu | | | | | | t | Date | s | | | | | | Date | | | + + +--------+---------+------+------+-------+ | hydrOXYzine 25 mg | 2 tablets PO QHS | | | | | Activ | | Oral Tablet | | | | | | e | + + +--------+---------+------+------+-------+ | lisinopril 10 mg | PO daily | | | | | Activ | | Oral Tablet | | | | | | e | + + +--------+---------+------+------+-------+ | SEROQUEL 200 mg | 2 tabs at night | | | | | Activ | | Oral Tablet | | | | | | e | + + +--------+---------+------+------+-------+ | trazodone 150 mg | 50mg twice daily | | | | | Activ | | Oral Tablet | | | | | | e | + + +--------+---------+------+------+-------+ | meclizine 25 mg | PO q 6h | | | | | Activ | | Oral Tablet | | | | | | e | + + +--------+---------+------+------+-------+ | INSULIN GLARGINE | 35 units qAM | | | | | Activ | | SC | | | | | | e | + + +--------+---------+------+------+-------+ | insulin aspart 100 | Inject under the | | | | | Activ | | unit/mL | skin (SUBC) three | | | | | e | | subcutaneous | times daily before | | | | | | | cartridge | meals. 8-25 units | | | | | | | | with meals | | | | | | + + +--------+---------+------+------+-------+ | memantine (NAMENDA | Take by mouth. | | | | | Activ | | XR) 28 mg oral | | | | | | e | | chantelle,KODAK sebastian | | | | | | | | 24hr | | | | | | | + + +--------+---------+------+------+-------+ | donepezil | Take 10 mg by mouth | | | | | Activ | | (ARICEPT) 10 mg oral | once daily in the | | | | | e | | tablet | evening. | | | | | | + + +--------+---------+------+------+-------+ | morphine 15 mg | Take 15 mg by mouth | | | | | Activ | | oral tablet | two times daily. | | | | | e | + + +--------+---------+------+------+-------+ | LORazepam 0.5 mg | Take 0.5 mg by mouth | | | | | Activ | | oral tablet | every four hours as | | | | | e | | | needed for anxiety. | | | | | | + + +--------+---------+------+------+-------+ | omeprazole 20 mg | Take 20 mg by mouth | | | | | Activ | | oral capsule,delayed | once daily. | | | | | e | | release(/EFREN) | | | | | | | + + +--------+---------+------+------+-------+ | warfarin 5 mg oral | Take 2.5 mg by mouth | | | | | Activ | | tablet | once daily. | | | | | e | + + +--------+---------+------+------+-------+ | hydrocortisone 10 | Take 1 tablet by | 90 | 1 | 08/2 | | Activ | | mg oral tablet | mouth once daily. | tablet | | 5/20 | | e | | | | | | 15 | | | + + +--------+---------+------+------+-------+ Active Problems + + + | Problem | Noted Date | + + + | Neuropathy, peripheral (HCC) | 07/21/2008 | + + + + + | Overview: I didn't recall findings on admit exam, but I do | | note reduced vibratory, soft, heat/cold & DTR's today (07/21). | | She notes she has had neuropathy for years. We need to review | | understanding of this. It is not her pressing issue. Perhaps | | from her DM.ICD10 | + + + + + | Pancytopenia, acquired | 07/18/2008 | + + + + + | Overview: Attributed to Methotrexate Toxicity, Associated | | with megaloblastic changes in smear, 'verbal' bone marrow from St | | Kimber is c/w MTX [id number] | + + +-------+ + | Fever | 07/18/2008 | +-------+ + + + | Overview: On admit, now resolved, being treated as 'febrile | | neutropenic' until cultures are neg x 72 hr | + + + + + | Diabetes mellitus (HCC) | 07/18/2008 | + + + + + | Overview: ICD10 | + + + + + | Hypertension | 07/18/2008 | + + + | Chronic kidney disease | 07/18/2008 | + + + + + | Overview: Baseline 1.3 per notes | + + + + + | Bipolar affective disorder (HCC) | 07/18/2008 | + + + + + | Overview: Don't have much history on this. | + + + + + | Alzheimer disease | 07/18/2008 | + + + + + | Overview: I am NOT convinced she has Alzheimer's. We will | | complete a basic assessment during her admission, and review what | | has been done prior. She was on aracept, and notes 'acute' | | benefit/worsening when she misses doses. I am suspicious that | | she has this. If so, she states she has had it for 10 yrs (Age | | ~52 onset). 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 Does not | | describe convincing morning stiffness. This was her rationale | | for her recent methotrexate escalation. | + + + + + | Contact dermatitis | 07/18/2008 | + + + + + | Overview: From tape at [facility] - verbal history | + + Social History + +-------+ +--------+------+ | Tobacco Use | Types | Packs/Day | Years | Date | | | | | Used | | + +-------+ +--------+------+ | Former Smoker | | | | | + +-------+ +--------+------+ + +---+---+---+ | Smokeless Tobacco: | | | | | Never Used | | | | + +---+---+---+ + + +---------+ + | Alcohol Use | Drinks/We | oz/Week | Comments | | | ek | | | + + +---------+ + | No | | | | + + +---------+ + + + + | Sex Assigned at | Date Recorded | | | | + + + | Not on file | | + + + Last Filed Vital Signs + + + + | Vital Sign | Reading | Time Taken | + + + + | Blood Pressure | 141/68 | 05/12/2015 1:03 PM PDT | + + + + | Pulse | 103 | 05/12/2015 1:03 PM PDT | + + + + | Temperature | 37 C (98.6 F) | 05/12/2015 1:03 PM PDT | + + + + | Respiratory Rate | 20 | 05/12/2015 1:03 PM PDT | + + + + | Oxygen Saturation | 93% | 07/27/2008 11:36 AM PST | + + + + | Inhaled Oxygen | - | - | | Concentration | | | + + + + | Weight | 81.6 kg (180 lb) | 05/12/2015 1:03 PM PDT | + + + + | Height | - | - | + + + + | Body Mass Index | - | - | + + + + Plan of Treatment + + + + + | Health Maintenance | Due Date | Last Done | Comments | + + + + + | CHOLESTEROL | | | | | SCREENING | 6 | | | + + + + + | DIABETIC EYE EXAM | | | | | | 6 | | | + + + + + | HEMOGLOBIN A1C | | | | | | 6 | | | + + + + + | MONOFILAMENT FOOT | | | | | EXAM | 6 | | | + + + + + | URINE MICROALBUMIN | | | | | | 6 | | | + + + + + | CREATININE | | 01/17/2015, 07/27/2008, | | | | 6 | 07/26/2008, Additional history | | | | | exists | | + + + + + | INFLUENZA VACCINE | | 05/11/2013 | | | (FLU SHOT) | 7 | | | + + + + + Results Not on filefrom Last 3 Months"
--- OUTSIDE RECORDS SUMMARY | 2017-10-17 14:43 | XMS | Clinical Summary ---
Demographics + + + | Address | [address] | | | [place] [address] | + + + | Home Phone | | + + + | Preferred Language | Unknown | + + + | Marital Status | Single | + + + | Islam Affiliation | PRE | + + + [...] Team Providers + +------+ + | Care Transplant Case Manager Name | Role | Phone | + +------+ + | Vladislav Goel MD | PP | Unavailable | + +------+ + Source Comments GAGAN is fully live on both [facility] Ambulatory and [facility] InPatient.[facility] Allergies + + + + + [...] St | | Kimber is c/w MTX [id number] | + + +-------+ + | Fever [...] + + | Overview: From tape at [facility] - verbal history | + + [...]
== END 2017-10-17 16:25 | disposition home or self-care (01) ==
LOC: ED 14:34
DX: R33.9 Retention of urine, unspecified (principal); I25.2 Old myocardial infarction; I10 Essential (primary) hypertension; E11.9 Type 2 diabetes mellitus without complications; Z87.440 Personal history of urinary (tract) infections; Z87.891 Personal history of nicotine dependence; Z90.49 Acquired absence of other specified parts of digestive tract; Z88.0 Allergy status to penicillin; Z88.8 Allergy status to other drugs, medicaments and biological substances; Z91.041 Radiographic dye allergy status; Z88.2 Allergy status to sulfonamides; Z91.040 Latex allergy status; Z88.1 Allergy status to other antibiotic agents; Z91.013 Allergy to seafood; Z91.018 Allergy to other foods; Z79.4 Long term (current) use of insulin; Z79.899 Other long term (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
CPT/HCPCS: 51702; 51798; 81001; 99284

== ENCOUNTER 2017-12-12 20:19 | Emergency (ER) | payer MEDICARE, OTHER ==
[~2017-12-12] VITALS: Ht 182.9 cm; Wt 70.3 kg
--- OUTSIDE RECORDS SUMMARY | ~2017-12-12 | XMS | Clinical Summary ---
Demographics + + + | Address | [address] | | | [place] [address] | + + + | Home Phone | | + + + | Preferred Language | Unknown | + + + | Marital Status | Single | + + + | Rastafarian Affiliation | PRE | + + + [...] | + + + Support + + +---------+ + | Name | Relationship | Address | Phone | + + +---------+ + | EDGAR JEFFREY | ECON | Unknown | | + + +---------+ + Care Team Providers + +------+ + | Care Drain Tiler Name | Role | Phone | + +------+ + | Vladislav Goel MD | PP | Unavailable | + +------+ + Source Comments GAGAN is fully live on both [facility] and [facility] Allergies + + + + + + [...] + + | Penicillins | | | 07/15/20 | | | | | | 08 | | + + + + + + | Propoxyphene | | | 07/15/20 | | | N-Acetaminophen | | | 08 | | + + + + + + | Sulfa (Sulfonamide | | | 07/15/20 | | | Antibiotics) | | | [...] | | | | e | | capsule,romulo,ER | | | | | | | [...] | | | | e | | release(DR/EC) | | | | | | | [...] St | | Kimber is c/w MTX [id number] | + + +-------+ + | Fever [...] + + | Overview: From tape at [facility] - verbal history | + + [...] | + + + + + | DIABETES | | | | | SELF-MANAGEMENT | 6 | | | | EDUCATION | | | | + + + [...] | + + + + + | PNEUMOCOCCAL ADULT | | | | | (1 of 2 - PCV13) | 1 | | | + + + + [...]
--- OUTSIDE RECORDS SUMMARY | ~2017-12-12 | XMS | Clinical Summary ---
Demographics + + + | Address | [address] | | | [place] [address] | + + + | Home Phone | | + + + | Preferred Language | Unknown | + + + | Marital Status | Single | + + + | Mosque Affiliation | PRE | + + + [...] Team Providers + +------+ + | Care Cross Cut Sawyer Name | Role | Phone | + +------+ + | Vladislav Goel MD | PP | Unavailable | + +------+ + Source Comments GAGAN is fully live on both [facility] and [facility] Allergies + + + + + [...] St | | Kimber is c/w MTX [id number] | + + +-------+ + | Fever [...] + + | Overview: From tape at [facility] - verbal history | + + Social [...]
[2017-12-12] MEDS ORDERED: MORPHINE (20:41)
== END 2017-12-12 22:35 | disposition home or self-care (01) ==
LOC: ED 20:19
DX: R41.82 Altered mental status, unspecified (principal); T40.605A Adverse effect of unspecified narcotics, initial encounter; E11.22 Type 2 diabetes mellitus with diabetic chronic kidney disease; N18.9 Chronic kidney disease, unspecified; I25.2 Old myocardial infarction; I10 Essential (primary) hypertension; E11.40 Type 2 diabetes mellitus with diabetic neuropathy, unspecified; Z88.0 Allergy status to penicillin; Z88.8 Allergy status to other drugs, medicaments and biological substances; Z91.09 Other allergy status, other than to drugs and biological substances; Z88.7 Allergy status to serum and vaccine; Z88.1 Allergy status to other antibiotic agents; Z91.040 Latex allergy status; Z88.2 Allergy status to sulfonamides; Z88.5 Allergy status to narcotic agent; Z79.899 Other long term (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; Z79.4 Long term (current) use of insulin
CPT/HCPCS: 70450; 80053; 81001; 85025; 85610; 85730; 99284; J7040

== ENCOUNTER 2017-12-21 16:28 | Emergency (ER) | payer MEDICARE, OTHER ==
[~2017-12-21] VITALS: Ht 182.9 cm; Wt 70.3 kg
--- OUTSIDE RECORDS SUMMARY | ~2017-12-21 | XMS | Clinical Summary ---
Demographics + + + | Address | [address] | | | [place] [address] | + + + | Home Phone | | + + + | Preferred Language | Unknown | + + + | Marital Status | Single | + + + | Samaritan Affiliation | PRE | + + + [...] Team Providers + +------+ + | Care Cardiology Clinical Consultant Name | Role | Phone | + +------+ + | Vladislav Goel MD | PP | Unavailable | + +------+ + Source Comments [facility] is fully live on both [facility] and [facility] Allergies + + + + [...] St | | Kimber is c/w MTX [id number] | + + +-------+ + | Fever [...] + + | Overview: From tape at [facility] - verbal history | + [...]
--- OUTSIDE RECORDS SUMMARY | ~2017-12-21 | XMS | Clinical Summary ---
Demographics + + + | Address | [address] | | | [place] [address] | + + + | Home Phone | | + + + | Preferred Language | Unknown | + + + | Marital Status | Single | + + + | Pentecostalism Affiliation | PRE | + + + [...] Team Providers + +------+ + | Care Resident Care Coordinator Name | Role | Phone | + +------+ + | Vladislav Goel MD | PP | Unavailable | + +------+ + Source Comments [facility] is fully [facility] and [facility] Allergies + + + + + [...] St | | Kimber is c/w MTX [id number] | + + +-------+ + | Fever [...] + + | Overview: From tape at [facility] - verbal history | + [...]
[~2017-12-21 16:28] MED LIST changes: +MORPHINE
== END 2017-12-21 19:08 | disposition home or self-care (01) ==
LOC: ED 16:28
PROC: 0T9B70Z Drainage of Bladder with Drainage Device, Via Natural or Artificial Opening (ICD-10-PCS; principal; 2017-12-21)
DX: M54.2 Cervicalgia (principal); M54.5 Low back pain; W01.198A Fall on same level from slipping, tripping and stumbling with subsequent striking against other object, initial encounter; Z87.891 Personal history of nicotine dependence; E11.40 Type 2 diabetes mellitus with diabetic neuropathy, unspecified; I10 Essential (primary) hypertension; I25.2 Old myocardial infarction; Z88.0 Allergy status to penicillin; Z88.8 Allergy status to other drugs, medicaments and biological substances; Z91.040 Latex allergy status; Z88.2 Allergy status to sulfonamides; Z88.5 Allergy status to narcotic agent; Z79.899 Other long term (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; Z79.4 Long term (current) use of insulin; Z79.891 Long term (current) use of opiate analgesic
CPT/HCPCS: 51701; 72125; 72131; 81001; 99284

== ENCOUNTER 2018-01-04 11:25 | Inpatient (IN) | payer MEDICARE, OTHER ==
[~2018-01-04] VITALS: Ht 182.9 cm; Wt 78.2 kg
--- OUTSIDE RECORDS SUMMARY | ~2018-01-04 | XMS | Clinical Summary ---
Demographics + + + | Address | [address] | | | [place] [address] | + + + | Home Phone | | + + + | Preferred Language | Unknown | + + + | Marital Status | | + + + | Samaritan Affiliation | 1070 | + + + | Race | Unknown | + + + | Ethnic Group | Unknown | + + + Author + + + | Author | [facility] | | | and [place] | + + + | Organization | [facility] | | | and [place] | + + + | Address | Unknown | + + + | Phone | Unavailable | + + + Support + + + + + | Name | Relationship | Address | Phone | + + + + + | Malini Keene(Care | ECON | [place], [place] | | | ict help desk technician) | | [address] | | + + + + + Care Team Providers + +------+ + | Care Felt Checker Name | Role | Phone | + +------+ + | Vladislav Goel MD | PP | | + +------+ + Allergies + + + + + + | Active Allergy | Reactions | Severity | Noted | Comments | | | | | Date | | + + + + + + | Aspirin | Other (See Comments) | High | 11/22/19 | | | | | | 15 | | + + + + + + | Bupropion | Other (See Comments) | High | 07/15/20 | | | | | | 08 | | + + + + + + | Cephalexin | Hives, Itching | | 03/31/20 | | | | | | 17 | | + + + + + + | Codeine | | | 07/15/20 | | | | | | 08 | | + + + + + + | Flu Virus Vaccine | Other (See Comments) | Medium | 11/22/19 | Severer body ache | | | | | 15 | | + + + + + + | Gabapentin | | | 07/15/20 | | | | | | 08 | | + + + + + + | Iodine | | | 03/31/20 | | | | | | 17 | | + + + + + + | Latex | Rash | Medium | 11/22/19 | | | | | | 15 | | + + + + + + | [place] | Other (See Comments) | Medium | 11/22/19 | Cause her to have | | | | | 15 | a guider | + + + + + + | Mirtazapine | | | 07/15/20 | | | | | | 08 | | + + + + + + | Penicillins | Other (See Comments) | Medium | 07/15/20 | CODED | | | | | 08 | | + + + + + + | Povidone Iodine | Hives | High | 11/22/19 | | | | | | 15 | | + + + + + + | Procaine | Other (See Comments) | Medium | 11/22/19 | Trouble breathing | | | | | 15 | | + + + + + + | Propoxyphene | Rash | Medium | 07/15/20 | Shortness of | | | | | 08 | breath | + + + + + + | Shellfish | Anaphylaxis | High | 12/15/19 | | | | | | 15 | | + + + + + + | Sulfa Antibiotics | Rash | Medium | 07/15/20 | Trouble urinating | | | | | 08 | | + + + + + + | Tetracycline | Other (See Comments) | Medium | 11/22/19 | Trouble urinating | | | | | 15 | | + + + + + + Current Medications + + +-------+---------+------+------+-------+ | Prescription | Sig. | Disp. | Refills | Star | End | Statu | | | | | | t | Date | s | | | | | | Date | | | + + +-------+---------+------+------+-------+ | allopurinol | Take 100 mg by | | | | | Activ | | (ZYLOPRIM) 100 mg | mouth. | | | | | e | | tablet | | | | | | | + + +-------+---------+------+------+-------+ | busPIRone (BUSPAR) | Take 10 mg by mouth. | | | | | Activ | | 10 MG tablet | | | | | | e | + + +-------+---------+------+------+-------+ | donepezil | Take by mouth. | | | | | Activ | | (ARICEPT) 10 MG | | | | | | e | | tablet | | | | | | | + + +-------+---------+------+------+-------+ | ergocalciferol | Take 50,000 Units by | | | | | Activ | | (VITAMIN D2) [id number] | mouth. | | | | | e | | units capsule | | | | | | | + + +-------+---------+------+------+-------+ | furosemide (LASIX) | TK 1 T PO D | | 5 | 05/2 | | Activ | | 20 mg tablet | | | | 6/20 | | e | | | | | | 17 | | | + + +-------+---------+------+------+-------+ | hydrocortisone | Take by mouth. | | | 08/2 | | Activ | | (CORTEF) 10 mg | | | | 5/20 | | e | | tablet | | | | 15 | | | + + +-------+---------+------+------+-------+ | hydrOXYzine | Take by mouth. | | | | | Activ | | hydrochloride | | | | | | e | | (ATARAX) 25 mg | | | | | | | | tablet | | | | | | | + + +-------+---------+------+------+-------+ | insulin aspart | Inject under the | | | | | Activ | | (NOVOLOG PENFILL) | skin. | | | | | e | | 100 units/mL | | | | | | | | injection cartridge | | | | | | | + + +-------+---------+------+------+-------+ | LANTUS SOLOSTAR | INJECT 30 UNITS | | 5 | 05/1 | | Activ | | 100 UNIT/ML | UNDER THE SKIN QHS | | | 7/20 | | e | | injection (pen) | | | | 17 | | | + + +-------+---------+------+------+-------+ | insulin glargine | Inject 40 Units | | | | | Activ | | (LANTUS) 100 | under the skin. | | | | | e | | units/mL injection | | | | | | | | (vial) | | | | | | | + + +-------+---------+------+------+-------+ | INSULIN GLARGINE | Inject under the | | | | | Activ | | SC | skin. | | | | | e | + + +-------+---------+------+------+-------+ | insulin lispro | Inject under the | | | | | Activ | | (HUMALOG) 100 | skin. | | | | | e | | units/mL injection | | | | | | | | (vial) | | | | | | | + + +-------+---------+------+------+-------+ | lisinopril | TK 1 TO 2 TS PO D | | 5 | 05/1 | | Activ | | (PRINIVIL,ZESTRIL) | | | | 5/20 | | e | | 2.5 MG tablet | | | | 17 | | | + + +-------+---------+------+------+-------+ | lisinopril | Take 2.5 mg by | | | 04/0 | | Activ | | (PRINIVIL,ZESTRIL) | mouth. | | | 6/20 | | e | | 2.5 MG tablet | | | | 16 | | | + + +-------+---------+------+------+-------+ | LORazepam (ATIVAN) | Take by mouth. | | | | | Activ | | 0.5 mg tablet | | | | | | e | + + +-------+---------+------+------+-------+ | [id number] (64 Mg) | TK 1 T PO BID | | 0 | 05/3 | | Activ | | MG CR tablet | | | | 0/20 | | e | | | | | | 17 | | | + + +-------+---------+------+------+-------+ | meclizine | Take by mouth. | | | | | Activ | | (ANTIVERT) 25 mg | | | | | | e | | tablet | | | | | | | + + +-------+---------+------+------+-------+ | memantine (NAMENDA | Take 28 mg by mouth. | | | | | Activ | | XR) 28 mg ER | | | | | | e | | capsule | | | | | | | + + +-------+---------+------+------+-------+ | NAMENDA XR 28 MG | TK 1 C PO QD | | 4 | 05/0 | | Activ | | ER capsule | | | | 3/20 | | e | | | | | | 17 | | | + + +-------+---------+------+------+-------+ | omeprazole | Take 20 mg by mouth. | | | | | Activ | | (PRILOSEC) 20 mg | | | | | | e | | capsule | | | | | | | + + +-------+---------+------+------+-------+ | QUEtiapine | Take by mouth. | | | | | Activ | | (SEROQUEL) 200 MG | | | | | | e | | tablet | | | | | | | + + +-------+---------+------+------+-------+ | traZODone | Take 300 mg by mouth | | | | | Activ | | (DESYREL) 150 MG | nightly. | | | | | e | | tablet | | | | | | | + + +-------+---------+------+------+-------+ | Lidocaine 2 % GEL | Apply topically 2 | | | | | Activ | | | times daily. | | | | | e | + + +-------+---------+------+------+-------+ | gabapentin | Take 100 mg by mouth | | 1 | 03/22 | | Activ | | (NEURONTIN) 100 mg | 3 times daily. | | | 10/11 | | e | | capsule | | | | 17 | | | + + +-------+---------+------+------+-------+ Active Problems + + + | Problem | Noted Date | + + + | Lumbar scoliosis | 04/08/2017 | + + + + + | Overview: Juvenile | + + + + + | Thoracolumbar kyphosis | 04/08/2017 | + + + | Degenerative disc disease, lumbar | 04/08/2017 | + + + | Lumbar radiculopathy | 04/08/2017 | + + + Family History Patient is adopted + + +------+ + | Medical History | Relation | Name | Comments | + + +------+ + | No Known Problems | Child | | | + + +------+ + | No Known Problems | Child | | | + + +------+ + + +------+--------+ + | Relation | Name | Status | Comments | + +------+--------+ + | Child | | Other | Status Unknown | + +------+--------+ + | Child | | Other | Status Unknown | + +------+--------+ + Social History + +-------+ +--------+ + | Tobacco Use | Types | Packs/Day | Years | Date | | | | | Used | | + +-------+ +--------+ + | Former Smoker | | | | Quit: 09/22/1956 | + +-------+ +--------+ + + +---+---+---+ | Smokeless Tobacco: | | [...] + + + | Blood Pressure | 117/55 | 06/23/2017 1356 PDT | + + + + | Pulse | 82 | 06/23/20171355 PDT | + + + + | Temperature | - | - | + + + + | Respiratory Rate | - | - | + + + + | Oxygen Saturation | - | - | + + + + | Inhaled Oxygen | - | - | | Concentration | | | + + + + | Weight | 73.9 kg (163 lb) | 06/23/20171355 PDT | + + + + | Height | 180.3 cm (5' 11") | 06/23/20171355 PDT | + + + + | Body Mass Index | 22.73 | 06/23/20171355 PDT | + + + + Plan of Treatment + + + + + | Health Maintenance | Due Date | Last Done | Comments | + + + + + | Hepatitis C | | | | | Screening | 6 | | | + + + + + | Vaccine: | | | | | Dtap/Tdap/Td (1 - | 5 | | | | Tdap) | | | | + + + + + | BREAST CANCER | | | | | SCREENING (MAMM Q2 | 6 | | | | YEARS 50-74) | | | | + + + + + | COLON CANCER | | | | | SCREENING | 6 | | | | (COLONOSCOPY EVERY | | | | | 10 YEARS 50-) | | | | + + + + + | Vaccine: Zoster (#1) | | | | | | 6 | | | + + + + + | Vaccine: | | | | | Pneumococcal 65+ | 1 | | | | Low/Medium Risk (1 | | | | | of 2 - PCV13) | | | | + + + + + Results Not on filefrom Last 3 Months Insurance + +--------+ +--------+ +---------+ | Payer | Benefi | Subscriber | Type | Phone | Address | | | t Plan | ID | | | | | | / | | | | | | | Group | | | | | + +--------+ +--------+ +---------+ | MEDICARE | MEDICA | xxxxxxxxxx | Medica | [phone]- | | | | RE | | re | [phone] | | | | PART A | | | | | | | AND B | | | | | + +--------+ +--------+ +---------+ | [employer] | MODA | [id number] | Medica | [phone] | | | MEDICAID HMO | HEALTH | | id | [id number] | | | | MDCD | | | | | | | [place] | | | | | + +--------+ +--------+ +---------+ + +--------+ +--------+ + + | Guarantor Name | Accoun | Relation to | Date | Phone | Billing Address | | | t Type | Patient | of | | | | | | | | | | + +--------+ +--------+ + + | ERIK CHAVEZ | Person | Self [birth year] Home: | [address] | | | al/Fam | | 1946 | [phone] [address] [place] | | | james | | [phone] | + +--------+ +--------+ + +
--- OUTSIDE RECORDS SUMMARY | ~2018-01-04 | XMS | Encounter Summary ---
Demographics + + + | Address | [address] [facility] [address] | | | [place] [address] | + + + | Home Phone | | + + + | Preferred Language | Unknown | + + + | Marital Status | | + + + | Pentecostal Affiliation | 1075 | + + + | Race | Unknown | + + + | Ethnic Group | Unknown | + + + Author + + + | Author | [facility] | + + + | Organization | [facility] | + + + | Address | Unknown | + + + | Phone | Unavailable | + + + Support + + + + + | Name | Relationship | Address | Phone | + + + + + | Candy Stevenson | ECON | [address] | | | | | [address] | | | | | [address] | | + + + + + | Janette Booker | ECON | Unknown | | + + + + + | Message,Detailed | ECON | Unknown | | + + + + + Care Team Providers + +------+ + | Care Leisure Studies Professor Name | Role | Phone | + +------+ + | Vladislav Goel MD | PCP | | + +------+ + Reason for Visit +--------+ + | Reason | Comments | +--------+ + | Other | stop lisinopril | +--------+ + Encounter Details +--------+ + + + + | Date | Type | Department | Care Team | Description | +--------+ + + + + | 12/19/ | Telephone | [facility] | [place], | Other (stop | | 2017 | | [address] | [address] | lisinopril) | | | | [address] | | | | | | [place] [address] | | | | | | [phone] | | | +--------+ + + + + Social History + +-------+ +--------+ + | Tobacco Use | Types | Packs/Day | Years | Date | | | | | Used | | + +-------+ +--------+ + | Former Smoker | | | | Quit: 08/19/2003 | + +-------+ +--------+ + + +---+---+---+ [...] on file | | + + + as of this encounter Plan of Treatment Not on fileas of this encounter Visit Diagnoses Not on filein this encounter"
--- OUTSIDE RECORDS SUMMARY | ~2018-01-04 | XMS | Encounter Summary ---
Demographics + + + | Address | [address] [facility] [address] | | | [place] [address] | + + + | Home Phone | | + + + | Preferred Language | Unknown | + + + | Marital Status | | + + + | Mormon Affiliation | 1075 | + + + | Race | Unknown | + + + | Ethnic Group | Unknown | + + + Author + + + | Author | [facility] | + + + | Organization | [facility] | + + + | Address [...] [address] | | | | | [address] | | + + + + + | Janette Booker | ECON | Unknown | | + + + + + | Message,Detailed | ECON | Unknown | | + + + + + Care Team Providers + +------+ + | Care Men'S Golf Coach Name | Role | Phone | + [...] Other (stop | | 2017 | | [address] | [address] | lisinopril) | | | | [address] | | | | | | [place] [address] | | | | | | [phone] | | | +--------+ + + + [...]
--- OUTSIDE RECORDS SUMMARY | ~2018-01-04 | XMS | Clinical Summary ---
Demographics + + + | Address | [address] [facility] [facility] [address] | | | [place] [address] | + + + | Home Phone | | + + + | Preferred Language | Unknown | + + + | Marital Status | | + + + | Taoism Affiliation | 1075 | + + + | Race | Unknown | + + + | Ethnic Group | Unknown | + + + Author + + + | Author | [facility] [employer] | + + + | Organization | [facility] [employer] | + + + | Address | Unknown | + + + | Phone | Unavailable | + + + Support + + + + + | Name | Relationship | Address | Phone | + + + + + | Candy Stevenson | ECON | [address] | | | | | [address] | | | | | [address] | | + + + + + | Janette Booker | ECON | Unknown | | + + + + + | Miguel Ángel,Cassius | ECON | Unknown | | + + + + + Care Team Providers + +------+ + | Care Director Of Software Development Name | Role | Phone | + +------+ + | Vladislav Goel MD | PP | | + +------+ + Allergies + + + + + + | Active Allergy | Reactions | Severity | Noted | Comments | | | | | Date | | + + + + + + | Aspirin | GI Bleed | High | 11/22/19 | | | | | | 15 | | + + + + + + | Propoxyphene | Rash | Medium | 11/22/19 | Shortness of | | | | | 15 | breath | + + + + [...] + + + + + + | [place] | Other (See Comments) | Medium | 11/22/19 | Cause her to have | | | | | 15 | a guider | + + + + + + | Penicillins | Other (See Comments) | Medium | 11/22/19 | CODED | | | | | 15 | | + + + + + + | Procaine | Other (See Comments) | Medium | 11/22/19 | Trouble breathing | | | | | 15 | | + + + + + + | Shellfish Allergy | Anaphylaxis | High | 12/15/19 | | | | | | 15 | | + + + + + + | Sulfa Antibiotics | Rash | Medium | 11/22/19 | Trouble urinating | | | | | 15 | | + + + + + + | Tetracycline | Other (See Comments) | Medium | 11/22/19 | Trouble urinating | | | | | 15 | | + + + + + + | Bupropion | GI Bleed | High | 11/22/19 | | | | | | 15 | | + + + + + + Current Medications + + +--------+---------+------+------+-------+ | Prescription | Sig. | Disp. | Refills | Star | End | Statu | | | | | | t | Date | s | | | | | | Date | | | + + +--------+---------+------+------+-------+ | insulin glargine | Inject 30 Units into | | | | | Activ | | (LANTUS) 100 UNIT/ML | the skin every | | | | | e | | injection | morning. | | | | | | + + +--------+---------+------+------+-------+ | insulin lispro, | Inject into the | | | | | Activ | | human, (HUMALOG) 100 | skin as needed. | | | | | e | | UNIT/ML injection | | | | | | | + + +--------+---------+------+------+-------+ | traZODone | Take 150 mg by mouth | | | | | Activ | | (DESYREL) 150 MG | daily. May take BID | | | | | e | | tablet | if needed for | | | | | | | | sleep. | | | | | | + + +--------+---------+------+------+-------+ | donepezil | Take 10 mg by mouth | | | | | Activ | | (ARICEPT) 10 MG | nightly. | | | | | e | | tablet | | | | | | | + + +--------+---------+------+------+-------+ | omeprazole | Take 20 mg by mouth | | | | | Activ | | (PRILOSEC) 20 MG | every morning before | | | | | e | | capsule | breakfast. | | | | | | + + +--------+---------+------+------+-------+ | LORAZEPAM PO | Take 0.5 mg by mouth | | | | | Activ | | | 2 (two) times | | | | | e | | | daily. | | | | | | + + +--------+---------+------+------+-------+ | allopurinol | Take 100 mg by mouth | | | | | Activ | | (ZYLOPRIM) 100 MG | daily. | | | | | e | | tablet | | | | | | | + + +--------+---------+------+------+-------+ | memantine (NAMENDA | Take 28 mg by mouth | | | | | Activ | | XR) 28 MG 24 hr | daily. | | | | | e | | capsule | | | | | | | + + +--------+---------+------+------+-------+ | QUEtiapine | Take 400 mg by mouth | | | | | Activ | | (SEROQUEL XR) 400 MG | nightly. | | | | | e | | 24 hr tablet | | | | | | | + + +--------+---------+------+------+-------+ | busPIRone (BUSPAR) | Take 10 mg by mouth | | | | | Activ | | 10 MG tablet | 2 (two) times daily. | | | | | e | + + +--------+---------+------+------+-------+ | [id number] (64 Mg) | TAKE 1 TABLET BY | 180 | 0 | 05/3 | | Activ | | MG CR tablet | MOUTH TWICE DAILY | tablet | | 0/20 | | e | | | | | | 17 | | | + + +--------+---------+------+------+-------+ | furosemide (LASIX) | Take 20 mg by mouth | | 0 | 08/2 | | Activ | | 20 MG tablet | daily. | | | 1/20 | | e | | | | | | 17 | | | + + +--------+---------+------+------+-------+ | gabapentin | Take 300 mg by mouth | | 0 | 09/0 | | Activ | | (NEURONTIN) 300 MG | 3 (three) times | | | 7/20 | | e | | capsule | daily. | | | 17 | | | + + +--------+---------+------+------+-------+ | Cholecalciferol | Take 2,000 Units by | 90 | 3 | 10/0 | 10/0 | Activ | | (VITAMIN D) 2000 | mouth daily. | tablet | | 6/20 | 6/20 | e | | units | | | | 17 | 18 | | | tabletIndications: | | | | | | | | Stage 3 chronic | | | | | | | | kidney disease, | | | | | | | | Vitamin D deficiency | | | | | | | + + +--------+---------+------+------+-------+ | lisinopril | Take 1 tablet by | 90 | 3 | 10/0 | 10/0 | Activ | | (ZESTRIL) 2.5 MG | mouth daily. | tablet | | 6/20 | 6/20 | e | | tabletIndications: | | | | 17 | 18 | | | Stage 3 chronic | | | | | | | | kidney disease | | | | | | | + + +--------+---------+------+------+-------+ Active Problems + + + | Problem | Noted Date | + + + | Recurrent UTI (urinary tract infection) | 07/31/2015 | + + + | Hypomagnesemia | 01/23/2015 | + + + | Pulmonary embolism, bilateral | 12/14/2014 | + + + | Right leg DVT | 12/14/2014 | + + + | CKD (chronic kidney disease), stage III | 11/21/2014 | + + + | Vitamin D deficiency | 11/21/2014 | + + + | GERD (gastroesophageal reflux disease) | 11/21/2014 | + + + | Gout | 11/21/2014 | + + + | Nephrolithiasis | 11/21/2014 | + + + | Incontinence of urine | 11/21/2014 | + + + | Diabetes | 11/17/2014 | + + + Resolved Problems + + + + | Problem | Noted | Resolved | | | Date | Date | + + + + | Proteinuria | 11/22/19 | | | | 15 | 5 | + + + + | HTN (hypertension) | 11/17/19 | | | | 15 | 5 | + + + + Encounters +--------+ + + + + | Date | Type | Specialty | Care Team | Description | +--------+ + + + + | 01/01/ | Documentati | | Paola Funez CMA | Other (ER Chart Note | | 2017 | [facility] Only | | [facility] | | | | | dated 12/12/2017) | +--------+ + + + + | 12/19/ | Telephone | | [place] | Lucia (stop | | 2017 | | | HANY Ryan | lisinopril) | +--------+ + + + + | 12/19/ | Documentati | | Paola Funez CMA | Labs Only ([facility] | | 2018 | on Only | | | Labs dated | | | | | | 12/12/2017; | | | | | | [place] ) | +--------+ + + + + from Last 3 Months Social History + +-------+ +--------+ + | [...] + + + | Blood Pressure | 122/52 | 06/27/2017 2:33 PM PDT | + + + + | Pulse | 87 | 06/27/2017 2:33 PM PDT | + + + + | Temperature | 36.6 C (97.9 F) | 06/27/2017 2:33 PM PDT | + + + + | Respiratory Rate | 18 | 12/17/2014 7:27 AM PDT | + + + + | Oxygen Saturation | 91% | 06/27/2017 2:33 PM PDT | + + + + | Inhaled Oxygen | - | - | | Concentration | | | + + + + | Weight | 73.9 kg (163 lb) | 06/27/2017 2:33 PM PDT | + + + + | Height | 180.3 cm (5' 11") | 06/27/2017 2:33 PM PDT | + + + + | Body Mass Index | 22.73 | 06/27/2017 2:33 PM PDT | + + + + Plan of Treatment + + + + + | Health Maintenance | Due Date | Last Done | Comments | + + + + + | Diabetic Eye Exam | | | | | | 6 | | | + + + + + | Diabetic Foot Exam | | | | | | 6 | | | + + + + + | Vaccine: | | | | | Dtap/Tdap/Td (1 - | 5 | | | | Tdap) | | | | + + + + + | Breast Cancer | | | | | Screening | 6 | | | | (Mammogram) | | | | + + + + + | Colon Cancer | | | | | Screening | 6 | | | | (Colonoscopy) | | | | + + + + + | Vaccine: Zoster (#1) | | | | | | 6 | | | + + + + + | DEXA SCAN SCREENING | | | | | | 1 | | | + + + + + | Vaccine: | | | | | Pneumococcal 65+ | 1 | | | | Low/Medium Risk (1 | | | | | of 2 - PCV13) | | | | + + + + + | Statin Therapy | | | | | (optimal intensity) | 6 | | | + + + + + | Hemoglobin A1c | | 04/01/2016 | | | | 6 | | | + + + + + | Microalbumin | | 04/01/2016 | | | Screening | 7 | | | + + + + + Results Urine microscopic only (12/12/2017 8:30 PM) + + + + | Component | Value | Ref Range | + + + + | COLOR UA | Yellow | | + + + + | CLARITY | Clear | | + + + + | Specific [place], UA | 1.020 | 1.005 - 1.030 | + + + + | LEUKOCYTE ESTERASE | Negative | | + + + + | NITRITE | Negative | | + + + + | UROBILINOGEN | Normal | | + + + + | PROTEIN | Negative | | + + + + | PH,URINE | 5 | 5 - 9 | + + + + | BLOOD | Negative | | + + + + | KETONES | Negative | | + + + + | BILIRUBIN | Negative | | + + + + | GLUCOSE | Negative | | + + + + + + + | Specimen | Performing Laboratory | + + + | Urine | [facility] [address] [facility] [address] [place] | | | [address] | + + + + + | Narrative | + + | WBC's: 10 H Epithelial: Squamous 4+ Bacteria: 1+ | + + Protime-INR (12/12/2017 8:30 PM) + +-------+ + | Component | Value | Ref Range | + +-------+ + | NORMAL PLASMA | 13.4 | 12.1 - 15.1 seconds | | PROTIME | | | + +-------+ + | INR | 1.0 | | + +-------+ + + + + | Specimen | Performing Laboratory | + + + | Blood | [facility] [address] [place] | | | [address] | + + + CBC W/Auto Diff (Reflex to Manual) (12/12/2017 8:30 PM) + + + + | Component | Value | Ref Range | + + + + | WBC | 5.4 | 4.5 - 11.0 10^3/mL | + + + + | RBC | 4.11 | 3.8 - 5.1 10^6/ L | + + + + | HGB | 11.9 (A) | 12 - 16 g/dL | + + + + | HCT | 35.5 | 35 - 45 % | + + + + | MCV | 86.4 | 81 - 99 fL | + + + + | MCH | 29 | 27 - 33 pg | + + + + | MCHC | 34 | 30 - 36 g/dL | + + + + | PLT | 150 | 140 - 440 K/ L | + + + + | RDW SD | 14.6 | 10.5 - 15.0 % | + + + + | MPV | | fL | + + + + | DIFF TYPE | | | + + + + | NEUTROPHILS | | % | + + + + | LYMPHOCYTES | | % | + + + + | MONOCYTES | | % | + + + + | EOSINOPHILS | | % | + + + + | BASOPHILS | | % | + + + + | NEUTROPHILS ABS | | / L | + + + + | LYMPHOCYTES ABS | | / L | + + + + | MONOCYTES ABS | | / L | + + + + | EOSINOPHILS ABS | | / L | + + + + | BASOPHILS ABS | | / L | + + + + + + + | Specimen | Performing Laboratory | + + + | Blood | [facility] [address] | | | [address] | + + + Comprehensive metabolic panel (12/12/2017 8:30 PM) + + + + | Component | Value | Ref Range | + + + + | GLUCOSE | 198 (A) | 70 - 100 mg/dL | + + + + | BUN | 45 (A) | 6 - 23 mg/dL | + + + + | CREATININE | 3.39 (A) | 0.7 - 1.18 mg/dL | + + + + | BUN/CREAT | 13.3 | 6.0 - 28.6 | + + + + | CALCIUM | 9.4 | 8.4 - 10.2 mg/dL | + + + + | TOTAL PROTEIN | 6.4 | 6.0 - 8.0 g/dL | + + + + | Albumin | 3.8 | 3.5 - 5.0 | + + + + | GLOBULIN | 2.6 | 1.8 - 3.5 | + + + + | A/G | 1.5 | 1.1 - 2.4 | + + + + | TBIL | 0.4 | 0.0 - 1.2 mg/dL | + + + + | ALK PHOS | 67 | 31 - 130 | + + + + | ALT | 10 | 7 - 52 U/L | + + + + | AST | 14 | 13 - 39 U/L | + + + + | SODIUM | 142 | 132 - 143 mmol/L | + + + + | POTASSIUM | 4.9 | 3.6 - 5.1 mmol/L | + + + + | CHLORIDE | 106 | 95 - 112 mmol/L | + + + + | CO2 | 27 | 19 - 31 mmol/L | + + + + | ANION GAP AGAP | 13.9 | 7 - 21 mmol/L | + + + + | EGFR | 13 (A) | 60 mg/dL | + + + + + + + | Specimen | Performing Laboratory | + + + | Blood | [facility] [address] [facility] [address] [place] | | | [address] | + + + from Last 3 Months Insurance + +--------+ +------+-------+ + | Payer | Benefi | Subscriber | Type | Phone | Address | | | t Plan | ID | | | | | | / | | | | | | | Group | | | | | + +--------+ +------+-------+ + | MEDICARE | MEDICA | xxxxxxxxxx | | | [address] | | | RE | | | | [place], [place] [phone] | | | IP-OP | | | | | + +--------+ +------+-------+ + | MEDICAID | EASTER | xxxxxxxx | | | [address] | | | N | | | | [place], [place] | | | [place] | | | | [address] | | | [employer] | | | | | + +--------+ +------+-------+ + + +--------+ +--------+ + + | Guarantor Name | Accoun | Relation to | Date | Phone | Billing Address | | | t Type | Patient | of | | | | | | | | | | + +--------+ +--------+ + + | HORTENCIA CHAVEZ | Person | Self [birth year] Home: | [address] | | | al/Fam | | 1946 | [phone] [address] [place] | | | james | | | [phone] | [phone] | + +--------+ +--------+ + +
--- OUTSIDE RECORDS SUMMARY | ~2018-01-04 | XMS | Clinical Summary ---
Demographics + + + | Address | [address] | | | [place] [address] | + + + | Home Phone | | + + + | Preferred Language | Unknown | + + + | Marital Status | Single | + + + | Religion Affiliation | PRE | + + + [...] Team Providers + +------+ + | Care Backhoe Operator Name | Role | Phone | + +------+ + | Vladislav Goel MD | PP | Unavailable | + +------+ + Source Comments [facility] Allergies + + + + + [...] St | | Kimber is c/w MTX [id number] | + + +-------+ + | Fever [...] + + | Overview: From tape at [facility] - verbal history | + + [...] 05/11/2013 | | | (FLU SHOT) | 8 | | | + + + + + Results Not on filefrom Last 3 Months"
--- OUTSIDE RECORDS SUMMARY | ~2018-01-04 | XMS | Encounter Summary ---
Demographics + + + | Address | [address] [facility] [address] | | | [place] [address] | + + + | Home Phone | | + + + | Preferred Language | Unknown | + + + | Marital Status | | + + + | Sabianism Affiliation | 1075 | + + + | Race | Unknown | + + + | Ethnic Group | Unknown | + + + Author + + + | Author | [facility] | + + + | Organization | [facility] [employer] | + + + | Address [...] [address] | | | | | [address] | | + + + + + | Janette Booker | ECON | Unknown | | + + + + + | Miguel Ángel,Detailed | ECON | Unknown | | + + + + + Care Team Providers + +------+ + | Care Mine Engineering Supervisor Name | Role | Phone | + +------+ + | Vladislav Goel MD | PCP | | + +------+ + Reason for Visit +--------+ + | Reason | Comments | +--------+ + | Other | ER Chart Note from dated 12/12/2017 | +--------+ + Encounter Details +--------+ + + + + | Date | Type | Department | Care Team | Description | +--------+ + + + + | 01/01/ | Documentati | [facility] | Paola Funez CMA | Other (ER Chart Note | | 2018 | on Only | [address] | | from | | | | [address] | | dated 12/12/2017) | | | | [place] [address] | | | | | | [phone] | | | +--------+ + + + [...]
--- OUTSIDE RECORDS SUMMARY | ~2018-01-04 | XMS | Clinical Summary ---
Demographics + + + | Address | [address] | | | [place] [address] | + + + | Home Phone | | + + + | Preferred Language | Unknown | + + + | Marital Status | | + + + | Quaker Affiliation | 1070 | + + + | Race | Unknown | + + + | Ethnic Group | Unknown | + + + Author + + + | Author | [facility] | | | and [place] | + + + | Organization | [facility] | | | and [place] | + + + | Address | Unknown | + + + | Phone | Unavailable | + + + Support + + + + + | Name | Relationship | Address | Phone | + + + + + | Malini Keene(Care | ECON | [place], [place] | | | propagation manager) | | [address] | | + + + + + Care Team Providers + +------+ + | Care Beam Racker Name | Role | Phone | + [...] + + + + + + | [place] | Other (See Comments) | Medium | [...] | | Activ | | (VITAMIN D2) [address] | mouth. | | | | | [...] | MODA | [id number] | Medica | [id number] | | | MEDICAID HMO | HEALTH [...] | james | | | [phone] | [phone] | + +--------+ +--------+ + +
--- OUTSIDE RECORDS SUMMARY | ~2018-01-04 | XMS | Encounter Summary ---
Demographics + + + | Address | [address] [facility] [address] | | | [place] [address] | + + + | Home Phone | | + + + | Preferred Language | Unknown | + + + | Marital Status | | + + + | Jehovah'S Witness Affiliation | 1075 | + + + | Race | Unknown | + + + | Ethnic Group | Unknown | + + + Author + + + | Author | [facility] | + + + | Organization | [facility] [employer] | + + + | Address [...] [address] | | | | | [address] | | + + + + + | Janette Booker | ECON | Unknown | | + + + + + | Miguel Ángel,Detailed | ECON | Unknown | | + + + + + Care Team Providers + +------+ + | Care Water Engineer Name | Role | Phone | + +------+ + | Vladislav Goel MD | PCP | | + +------+ + Reason for Visit + + + | Reason | Comments | + + + | Labs Only | [facility] dated 12/12/2017; Dr. Perry | + + + Encounter Details +--------+ + + + + | Date | Type | Department | Care Team | Description | +--------+ + + + + | 12/19/ | Documentati | [facility] | Paola Funez CMA | Labs Only ([facility] | | 2018 | on Only | [address] | | Labs dated | | | | [address] | | 12/12/2017; | | | | [place] [address] | | [place] ) | | | | [phone] | | | +--------+ + + + [...] Treatment Not on fileas of this encounter Results Comprehensive metabolic panel (12/12/2017 8:30 PM) + [...] + + | Blood | [facility] [address] [place] [address] [address] [place] | | | [address] | + + + CBC W/Auto Diff [...] + + | Blood | [facility] [address] [place] [address] [place] | | | [address] | + + + Protime-INR (12/12/2017 8:30 PM) + [...] + + | Blood | [facility] [address] [place] [address] [place] | | | [address] | + + + Urine microscopic only (12/12/2017 8:30 PM) + + + + | Component | Value | Ref Range | + + + + | COLOR UA | Yellow | | + + + + | CLARITY | Clear | | + + + + | Specific [place], UA | 1.020 | 1.005 - 1.030 [...] + | Urine | [facility] [address] [place] | | | [address] | + + + + + | Narrative | + + | WBC's: 10 H Epithelial: Squamous 4+ Bacteria: 1+ | + + in this encounter Visit Diagnoses Not on filein this encounter"
--- OUTSIDE RECORDS SUMMARY | ~2018-01-04 | XMS | Encounter Summary ---
Demographics + + + | Address | [address] [facility] [address] | | | [place] [address] | + + + | Home Phone | | + + + | Preferred Language | Unknown | + + + | Marital Status | | + + + | Islam Affiliation | 1075 | + + + | Race | Unknown | + + + | Ethnic Group | Unknown | + + + Author + + + | Author | [facility] [employer] | + + + | Organization | [facility] [employer] | + + + | Address [...] [address] | | | | | [address] | | + + + + + | Janette Booker | ECON | Unknown | | + + + + + | Miguel Ángel,Detailed | ECON | Unknown | | + + + + + Care Team Providers + +------+ + | Care Hand Thermal Cutter Name | Role | Phone | + [...] 12/12/2017) | | | | [place] [address] | | | | | | [phone] | | | +--------+ + + + [...]
--- OUTSIDE RECORDS SUMMARY | ~2018-01-04 | XMS | Encounter Summary ---
Demographics + + + | Address | [address] [facility] | | | [place] [address] | + + + | Home Phone | | + + + | Preferred Language | Unknown | + + + | Marital Status | | + + + | Yazdanism Affiliation | 1075 | + + + | Race | Unknown | + + + | Ethnic Group | Unknown | + + + Author + + + | Author | [facility] | + + + | Organization | [facility] [employer] | + + + | Address [...] [address] | | | | | [address] | | + + + + + | Janette Booker | ECON | Unknown | | + + + + + | Miguel Ángel,Detailed | ECON | Unknown | | + + + + + Care Team Providers + +------+ + | Care Foreign Legal Consultant Name | Role | Phone | [...] 12/12/2017; | | | | [place] [address] | | [place] ) | | | | [phone] | | | +--------+ + + + [...] + + | Blood | [facility] [address] [place] [address] [address] [place] | | | [address] | + + + CBC W/Auto Diff [...] + + | Blood | [facility] [address] [place] [address] [place] | | | [address] | + + + Protime-INR (12/12/2017 8:30 [...] + + | Blood | [facility] [address] [place] [address] [place] | | | [address] | + + + Urine microscopic only (12/12/2017 8:30 PM) + + + + | Component | Value | Ref Range | + + + + | COLOR UA | Yellow | | + + + + | CLARITY | Clear | | + + + + | Specific [place], UA | 1.020 | 1.005 - 1.030 [...] [address] [place] | | | [address] | + + + + + | Narrative | + + | WBC's: 10 H Epithelial: Squamous 4+ Bacteria: 1+ | + + in this encounter Visit Diagnoses Not on filein this encounter"
--- OUTSIDE RECORDS SUMMARY | ~2018-01-04 | XMS | Clinical Summary ---
Demographics + + + | Address | [address] | | | [place] [address] | + + + | Home Phone | | + + + | Preferred Language | Unknown | + + + | Marital Status | | + + + | Episcopal Affiliation | 1070 | + + + | Race | Unknown | + + + | Ethnic Group | Unknown | + + + Author + + + | Author | [facility] | | | and Andrewana | + + + | Organization | [facility] | | | and [place] | + + + | Address | Unknown | + + + | Phone | Unavailable | + + + Support + + + + + | Name | Relationship | Address | Phone | + + + + + | Malini Keene(Care | ECON | [place], [place] | | | authors motivational) | | [address] | | + + + + + Care Team Providers + +------+ + | Care Lumber Yard Worker Name | Role | Phone | + [...] + + + + + + | [place] | Other (See Comments) | Medium | [...] | | Activ | | (VITAMIN D2) [address] | mouth. | | | | | [...] | MODA | [id number] | Medica | +[id number] | | | MEDICAID HMO | HEALTH [...] | james | | | [phone] | [phone] | + +--------+ +--------+ + +
--- OUTSIDE RECORDS SUMMARY | ~2018-01-04 | XMS | Encounter Summary ---
Demographics + + + | Address | [address] [facility] [address] | | | [place] [address] | + + + | Home Phone | | + + + | Preferred Language | Unknown | + + + | Marital Status | | + + + | Sabianist Affiliation | 1075 | + + + | Race | Unknown | + + + | Ethnic Group | Unknown | + + + Author + + + | Author | [facility] | + + + | Organization | [facility] [employer] [facility] | + + + | Address [...] [address] | | | | | [address] | | + + + + + | Janette Booker | ECON | Unknown | | + + + + + | Miguel Ángel,Detailed | ECON | Unknown | | + + + + + Care Team Providers + +------+ + | Care Gsa Coordinator Name | Role | Phone | + [...] 12/12/2017) | | | | [place] [address] | | | | | | [phone] | | | +--------+ + + + [...]
--- OUTSIDE RECORDS SUMMARY | ~2018-01-04 | XMS | Clinical Summary ---
Demographics + + + | Address | [address] [facility] [address] | | | [place] [address] | + + + | Home Phone | | + + + | Preferred Language | Unknown | + + + | Marital Status | | + + + | Yazidi Affiliation | 1075 | + + + | Race | Unknown | + + + | Ethnic Group | Unknown | + + + Author + + + | Author | [facility] | + + + | Organization | [facility] [facility] | + + + | Address [...] [address] | | | | | [address] | | + + + + + | Janette Booker | ECON | Unknown | | + + + + + | Miguel Ángel,Cassius | ECON | Unknown | | + + + + + Care Team Providers + +------+ + | Care Septic Tank Service Technician Name | Role | Phone | + [...] + + + + + + | Embarrass | Other (See Comments) | Medium | [...] | on Only | | [facility] | | | | | | dated [...] | + + + + | Specific [place], UA | 1.020 | 1.005 - 1.030 [...] + | Urine | [facility] [address] [facility] [address] [place] | | | [address] | + + + + + | [...] [address] [place] | | | [address] | + + + CBC W/Auto Diff [...] | + + + | Blood | [facility] [address] | | | [address] | + + + Comprehensive metabolic panel [...] + | Blood | [facility] [address] [facility] [address] [place] | | | [address] | + + + from Last 3 [...] | xxxxxxxxxx | | | [address] | | | RE | | | | [place], [place] [address] | | | IP-OP | | | | | + +--------+ +------+-------+ + | MEDICAID | EASTER | xxxxxxxx | | | [address] | | | N | | | | [place], [place] | | | [place] | | | | [address] | | | TUBE WINDER | | | | | + +--------+ [...] | | al/Fam | | 1946 | [phone] | [address] [place] | | | james | | | [phone] | [phone] | + +--------+ +--------+ + +
--- OUTSIDE RECORDS SUMMARY | ~2018-01-04 | XMS | Clinical Summary ---
Demographics + + + | Address | [address] | | | [place] [address] | + + + | Home Phone [...] Team Providers + +------+ + | Care Accounting Clerk Name | Role | Phone | + +------+ + | Vladislav Goel MD | PP | Unavailable | + +------+ + Source Comments GAGAN is fully live on both [facility] and [facility] Allergies + + + + + [...] St | | Kimber is c/w MTX [id number] | + + +-------+ + | Fever [...] | Overview: From tape at [facility] - verbal history | + [...]
--- OUTSIDE RECORDS SUMMARY | ~2018-01-04 | XMS | Clinical Summary ---
Demographics + + + | Address | [address] | | | [place] [address] | + + + | Home Phone | | + + + | Preferred Language | Unknown | + + + | Marital Status | Single | + + + | Nondenominational Affiliation | PRE | + + + [...] Team Providers + +------+ + | Care Cigar Bander Hand Name | Role | Phone | + +------+ + | Vladislav Goel MD | PP | Unavailable | + +------+ + Source Comments GAGAN is fully live on both [facility] and [facility] InPatient.[facility] Allergies + + + + + [...] St | | Kimber is c/w MTX [id number] | + + +-------+ + | Fever [...]
--- OUTSIDE RECORDS SUMMARY | ~2018-01-04 | XMS | Clinical Summary ---
Demographics + + + | Address | [address] [facility] [address] | | | [place] [address] | + + + | Home Phone | | + + + | Preferred Language | Unknown | + + + | Marital Status | | + + + | Scientologist Affiliation | 1075 | + + + | Race | Unknown | + + + | Ethnic Group | Unknown | + + + Author + + + | Author | [facility] | + + + | Organization | [facility] [employer] | + + + | Address [...] [address] | | | | | [address] | | + + + + + | Janette Booker | ECON | Unknown | | + + + + + | Miguel Ángel,Cassius | ECON | Unknown | | + + + + + Care Team Providers + +------+ + | Care Director Of Strategic Alliances Name | Role | Phone | + [...] + + + + + + | [place] | Other (See Comments) | Medium | [...] | on Only | | | [facility] | | | | | [...] | + + + + | Specific [place], UA | 1.020 | 1.005 - 1.030 [...] + | Urine | [facility] [address] [facility] [address] [place] | | | [address] | + + + + + | [...] [address] [place] | | | [address] | + + + CBC W/Auto Diff [...] | + + + | Blood | [facility] [address] | | | [address] | + + + Comprehensive metabolic panel [...] + | Blood | [facility] [address] [facility] [address] [place] | | | [address] | + + + from Last 3 [...] | xxxxxxxxxx | | | [address] | | | RE | | | | [place], [place] [address] | | | IP-OP | | | | | + +--------+ +------+-------+ + | MEDICAID | [place] | xxxxxxxx | | | [address] | | | N | | | | [place], [place] | | | [place] | | | | [address] | | | BLANKING MACHINE OPERATOR | | | | | + +--------+ [...] | | al/Fam | | 1946 | [phone] | [address] [place] | | | james | | | [phone] | [phone] | + +--------+ +--------+ + +
--- OUTSIDE RECORDS SUMMARY | ~2018-01-04 | XMS | Encounter Summary ---
Demographics + + + | Address | [address] [facility] [address] | | | [place] [address] | + + + | Home Phone | | + + + | Preferred Language | Unknown | + + + | Marital Status | | + + + | Advent Affiliation | 1075 | + + + | Race | Unknown | + + + | Ethnic Group | Unknown | + + + Author + + + | Author | [facility] | + + + | Organization | [facility] [employer] [facility] | + + + | Address [...] [address] | | | | | [address] | | + + + + + | Janette Booker | ECON | Unknown | | + + + + + | Miguel Ángel,Detailed | ECON | Unknown | | + + + + + Care Team Providers + +------+ + | Care City Recorder Name | Role | Phone | + [...] 12/12/2017; | | | | [place] [address] | | [place] ) | | | | [phone] | | | +--------+ + + + [...] + + | Blood | [facility] [address] [place] [address] [address] [place] | | | [address] | + + + CBC W/Auto Diff [...] + + | Blood | [facility] [address] [place] [address] [place] | | | [address] | + + + Protime-INR (12/12/2017 8:30 [...] + + | Blood | [facility] [address] [place] [address] [place] | | | [address] | + + + Urine microscopic only (12/12/2017 8:30 PM) + + + + | Component | Value | Ref Range | + + + + | COLOR UA | Yellow | | + + + + | CLARITY | Clear | | + + + + | Specific [place], UA | 1.020 | 1.005 - 1.030 [...] [address] [place] | | | [address] | + + + + + | Narrative | + + | WBC's: 10 H Epithelial: Squamous 4+ Bacteria: 1+ | + + in this encounter Visit Diagnoses Not on filein this encounter"
--- OUTSIDE RECORDS SUMMARY | ~2018-01-04 | XMS | Encounter Summary ---
Demographics + + + | Address | [address] [facility] [address] | | | [place] [address] | + + + | Home Phone | | + + + | Preferred Language | Unknown | + + + | Marital Status | | + + + | Druze Affiliation | 1075 | + + + | Race | Unknown | + + + | Ethnic Group | Unknown | + + + Author + + + | Author | [facility] | + + + | Organization | [facility] [employer] [facility] | + + + | Address [...] [address] | | | | | [address] | | + + + + + | Janette Booker | ECON | Unknown | | + + + + + | Message,Detailed | ECON | Unknown | | + + + + + Care Team Providers + +------+ + | Care Community Health Agent Name | Role | Phone | + [...] Other (stop | | 2017 | | [address] [address] | HANY Ryan | lisinopril) | | | | [address] | | | | | | [place] [address] | | | | | | [phone] | | | +--------+ + + + [...]
--- NOTE | 2018-01-04 15:57 | NUR ---
RECEIVED PT FROM THE ED TODAY THREE PERSON [facility] AND THEN VIVEROS CATHETER PLACED AND STARTED AN ADDITIONAL IV LINE. AFTER 3 ATTEMPS IT WAS PLACED IN HER LEFT SHINE PER DR CHARLA MILLER. HEEL PROTECTORS ON ALSO TO HELP PROTECT LINE. WARM BLANKETS GIVEN AND BED ALARM ON. URINE SAMPLE SENT TO THE ED AND TWO SITE BLOOD CULTURES OBTAIN PER LAB.
--- NOTE | 2018-01-04 16:02 | NUR ---
PT HAS BEEN MAKING GOOD URINE SINCE VIVEROS CATHETER PLACED. PT IS ON BOLUS 2 OF 2 AT THIS TIME OF NS.
--- NOTE | 2018-01-04 16:41 | NUR ---
PT AWAKE TALKING TO STAFF, WANTS THE TV ON AT THIS TIME STAFF IS ASSITING HER AT THIS TIME.
--- NOTE | 2018-01-04 19:35 | NUR ---
PT AGITATED. REMOVING PULSE OX, STATING SHE IS LEAVING. UNABLE TO REASON WITH PT. CONFUSED TO SITUATION. CALLED DR TERRELL TO UPDATE. PT REFUSING TO WEAR O2. SPO2 90%, HR 99, RR12.
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
--- NOTE | 2018-01-05 00:21 | NUR ---
PT MORE IRRITABLE AND RESTLESS LAST HOUR. CONTINUES TO FIDGET NON-STOP, REMOVES RINGS, ITEMS FROM BEDSIDE TABLE, PLACES THEM IN RANDOM PLACES AND ORDER. DISORIENTED TO WHAT OBJECTS ARE AND THEIR USE. ARGUES WITH STAFF AND REQUESTS TO REMOVE "ALL THIS SHIT" SHE PULLS ON MONITOR LEADS. ATTEMPTED TO REORIENT, UNSUCCESSFULLY. ASKS WHERE HER 'EGG' IS, AND STATES THAT "THAT JANICE PROBABLY TOOK IT".
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
--- NOTE | 2018-01-05 02:26 | NUR ---
DR DUNHAM CALLED AGAIN AT 0153 FOR PT CONTINUED AGRESSION. ADDITIONAL 3MG HALDOL GIVEN IV. PT ADAMANT THAT SHE NEEDS TO GET UP TO BR. EXPLAINED TO PT THAT SHE HAS A CATHETER, CHECKED PATENCY. PT NOT UNDERSTANDING CONCEPT. OUT OF BED WITH 3 STAFF TO BR. STEADY ON FEET. BACK TO BED.
--- NOTE | 2018-01-05 02:39 | NUR ---
PT REMAINS AWAKE, IRRITABLE. REFUSING MONITOR LEADS.
--- NOTE | 2018-01-05 03:09 | NUR ---
PT REMAINS BELLIGERENT AND AGITATED. TRYING TO GET OUT OF BED. NOT COOPERATIVE. 0.5MG ATIVAN GIVEN IV FOLLOWED BY AN ADDITIONAL 0.5MG 10MIN LATER.
--- NOTE | 2018-01-05 03:47 | NUR ---
PT CALMING. ALLOWED VS TO BE TAKEN. REFUSED TO WEAR OXYGEN. REFUSING MONITOR LEADS.
--- NOTE | 2018-01-05 04:10 | NUR ---
PT ASLEEP. 7L OXYGEN VIA BLOWBY SET UP D/T PT REFUSAL TO WEAR NC OR OXYMASK.
--- NOTE | 2018-01-05 05:45 | NUR ---
PT CALM AND COOPERATIVE. ALLOWED LAB TO DRAW BLOOD. RE-DIRECTABLE. SPO2 CHECKED 95% WITH 7L O2 BLOWBY.
--- NOTE | 2018-01-05 06:11 | NUR ---
PT IRRITABLE. STATING SHE IS LEAVING. NOT ORIENTED TO PLACE OR SITUATION. ARGUMENTATIVE. DR DUNHAM NOTIFIED AND AM MEDS GIVEN EARLY. PT REQUESTING MORPHINE FOR PAIN 'EVERYWHERE' . 4MG MORPHINE GIVEN IV.
--- NOTE | 2018-01-05 07:30 | NUR ---
BEDSIDE REPORT RECIEVED. IS RESTING AT THIS TIME.
--- NOTE | 2018-01-05 08:39 | NUR ---
REFUSED BREAKFAST. STATES SHE IS GOING HOME. ACCUCHECK 172. NOVOLOG INSULIN 3 UNITS GIVEN. SWEARING. FELICE THOMPSON, IVF PATENT.
--- NOTE | 2018-01-05 08:44 | NUR ---
PT AWAKENED RESTLESS. PULLING AT CLOTHES, STATING SHE IS GOING HOME. PATIENT ORIENTED, BUT UNPLEASANT WITH ANSWERING QUESTIONS. PATIENT STATING "I KNOW WHAT GOES ON AROUND HERE AND i'M HAVING NONE OF IT". SHOVEL OILER TRYING TO HELP PATIENT PUT GOWN BACK ON AND DISCUSS POSSIBLY HAVING MORNING MEAL AND CARE.
--- NOTE | 2018-01-05 09:15 | NUR ---
DR. DUNHAM HERE TO SEE PATIENT. ORDERS RECIEVED.
--- NOTE | 2018-01-05 09:20 | NUR ---
TOOK [facility]OGART. FELICE THOMPSON DC'D PER DR. DUNHAM ORDERS.
[2018-01-05] MEDS ORDERED: MORPHINE SULFAT15 MG PO (09:29)
[2018-01-05] MEDS ORDERED: GABAPENTIN300 MG PO (10:29)
--- NOTE | 2018-01-05 10:32 | NUR ---
AMBULATED WITH WALKER ACCOMP BY PHYS THERAPYAND NURSE. PTATIET USED WALKER TO AMBULATE FROM ROOM 129 TO 126 AND BACK. TOLERATED WELL. UPON RETURN TO ROOM SAT=95% ON RA.
--- NOTE | 2018-01-05 10:36 | NUR ---
SPOKE WITH RAMONITA, CAREGIVER AT [facility] SHE STATES PATIENTS BASELINE IS ORIENTED, BUT EASY TO FRUSTRATE. SHE STATES PATIENT USES A WHEELCHAIR FOR MOBILITY. PATIENT IS ABLE TO TRANSFER SELF FOR TOILET, ALTHOUGH DOES USE A PAD FOR INCONTINENCE. PATIENT IS ABLE TO TRANSFER SELF TO CHAIR, BED, TABLE. PATIENT DRESSES SELF, FEEDS SELF. THE PENITENTIARY DOSES HER MEDICATIONS. PATIENT DOES GIVE HERSELF HER INSULIN SHOT ON OCCASION, BUT DOES NOT DOSE IT. SHE STATES PATIENT HAS A SON WHO IS IN [facility]. ONLY OTHER CONTACT THEY HAVE IS A FRIEND WHO VISITS HER OCCASIONALLY, LAURA KHAN AT [phone]. THEY INTEND FOR PATIENT TO RETURN TO HOME ON DISCHARGE BUT WOULD HOPE SHE IS RETURNED TO [facility] FOR DISCHARGE.
--- NOTE | 2018-01-05 14:15 | NUR ---
AGITATED, STATES SHE IS GOING HOME. PATIENT IS OOB, ABLE TO DIRECT PATIENT TO BATHROOM. DID VOID. PATIENT TALKS OUT, NOT MAKING ANY SENSE WITH WHAT SHE IS SAYING. AFTER VOIDING, ASSISTED PATIENT TO SIT AT BEDSIDE. REMAINS AGITATED.
--- NOTE | 2018-01-05 14:30 | NUR ---
ROUTINE 1500 MEDICATIONS GIVEN. CONTINUE TO SIT AT BEDSIDE.
--- NOTE | 2018-01-05 17:00 | NUR ---
ACCUCHECK 262, 5 UNITS NOVOLOG INSULIN GIVEN. PATIENT GIVES SELF INJECTION. C/O SHOULD AND BACK PAIN. TRANSFER TO CHAIR FOR POSITION CHANGE AND DINNER. MORE COOPERATIVE AT THIS TIME.
--- NOTE | 2018-01-05 18:00 | NUR ---
TOOK DINNER WELL, BACK TO BED W/O INCIDENT. HAS BEEN MORE CALM THIS AFTERNOON. IVF AT 75 ML/HR.
--- NOTE | 2018-01-05 19:48 | NUR ---
AMB TO BR WITH Miesha HOOPER RN TO VOID. CARLOS ALBERTO WELL, TEETH BRUSHED. PT IS REQUESTING HS MEDS SO GIVEN NOW. IS COOPERATIVE AT THIS TIME.
--- NOTE | 2018-01-05 20:20 | NUR ---
REPORT RECEIVED FROM CHRIS DREW IN CCU. PT ARRIVING WITH RESEARCH CONTRACTS SUPERVISOR RN TO MS AT THIS TIME VIA HOSPITAL BED. PT AWAKE, SUNGLASSES ON, BED ALARM SET.
--- NOTE | 2018-01-05 21:00 | NUR ---
PT APPEARS TO BE SLEEPING AT THIS TIME, GLASSES ON, MOUTH OPEN, BREATHING VISIBLE, EQUAL CHEST RISE BILATERALLY.
--- NOTE | 2018-01-05 22:30 | NUR ---
PT ASSESSMENT COMPLETE AT THIS TIME, PT IS ORIENTED TO PERSON, , PLACE, NOT TO DATE, OR EVENT. PT HUMMING INTERMITTENTLY, LOSES TRAIN OF THOUGHT WHEN SPEAKING, ANSWERING QUESTIONS. IV FLUSHED WNL. ANTIBIOTIC INFUSING. LUNGS CLEAR THORUGHOUT ALL LOBES, BOWEL TONES ACTIVE X 4. PT DENIES ANY PAIN. CSM INTACT BUE, BLE, PT STATES CHRONIC NUMBNESS AND TINGLING BLE, AND BUE. PT DENIES PAIN. CBG 154, 1 UNIT NOVOLOG ADMINISTERED. CALL LIGHT GIVEN TO PT. BED ALARM SET, PT GIVEN DECAF TEA.
--- NOTE | 2018-01-06 00:25 | NUR ---
RESPONDED TO BED ALARM, PT OOB, SBA TO RESTROOM FOR VOID. CINDY URRUTIA IN ROOM WITH PT.
--- NOTE | 2018-01-06 02:30 | NUR ---
PT LYING ON RIGHT SIDE, EYES CLOSED, VISIBLE CHEST RISE BILATERALLY, LIGHTS OFF IN ROOM. BED ALARM ON.
--- NOTE | 2018-01-06 04:29 | NUR ---
PT CALLING OUT, INCOMPREHENSIBLE. IN PT ROOM TO ASSESS. PT DIAPHORETIC. ORIENTED TO PERSON, , NOT PLACE, DATE, EVENT. CBG CHECK 174. PT AFEBRILE AT THIS TIME. DENTURES FOUND IN BED, PLACED IN CUP ON BEDSIDE TABLE. PTS LUNGS CLEAR THROUGHOUT ALL LOBES, HR REGULAR RHYTHM. CSM INTACT BUE, BLE. IVF INFUSING LEFT ANKLE WNL. PT DENIES TOILETING NEEDS AT THIS TIME. BED ALARM SET. CINDY URRUTIA IN ROOM FOR VITALS.
--- NOTE | 2018-01-06 05:13 | NUR ---
PT ORIENTED TO PERSON, THROUGHOUT SHIFT, CONFUSED REGARDING PLACE, EVENT, BED ALARM IN PLACE THROUGHOUT SHIFT, PT OUT OF BED WITHOUT CALLING. SBA WITH FWW TO RESTROOM FOR VOID, SOME INCONTINENCE. CBG 154 AT EVENING ACCU CHECK. IVF INFUSING LEFT ANKLE WNL THROUGHOUT SHIFT. PT ON ROOM AIR THORUGHOUT SHIFT.
--- NOTE | 2018-01-06 06:01 | NUR ---
IN PT ROOM FOR ANTIBIOTIC ADMINISTRATION. IVF INFUSING WNL. PT ASKING QUESTIONS REGARDING IV MEDICATIONS, EDUCATION PROVIDED. PT DROWSY, HUMMING. 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 NO ADDL REQUESTS. BED ALARM SET.
--- NOTE | 2018-01-06 07:53 | NUR ---
PATIENT IS SITTING UP RESTING IN BED. CALL LIGHT WITHIN REACH. NO OTHER NEEDS AT THIS TIME.
[2018-01-06] MEDS ORDERED: LASIX20 MG PO (08:27)
[2018-01-06] MEDS ORDERED: NORCO 7.5-3251 EACH PO ×2 (08:32→12:06)
--- NOTE | 2018-01-06 08:47 | NUR ---
BED ALARM SOUNDING, PT STANDING WITHOUT WALKER ATTEMPTING TO AMBULATE TO THE RESTROOM. ASSISTED PT TO BATHROOM AND BACK TO BED. bED ALRAM ON, CALL LIGHT WITHIN REACH, NO FURTHER REQUESTS AT THIS TIME
--- NOTE | 2018-01-06 08:55 | NUR ---
LAURA ASSESSMENT DUE. PT RESTING IN BED, LISTENING TO TV. PT COOPERATIVE THIS MORNING, OBEYING COMMANDS. PT ALERT TO SELF, TOWN AND PRESIDENT BUT DISORIENTED TO WHY SHE IS HERE AND PLACE. PT COMPLAINS OF 7/10 PAIN THAT IS "JUST MY ARTHRITIS." ASSESSMENT DONE. MEDICATIONS GIVEN ORDERED (SEE MAR). WARM BLANKETS PROVIDED. PT STATES SHE HAS NO ADDITIONAL REQUESTS OR COMPLAINTS AT THIS TIME. CALL LIGHT WITHIN REACH. BED RAILS UP.
--- NOTE | 2018-01-06 09:34 | NUR ---
STUDENT NURSE IN ROOM.
--- NOTE | 2018-01-06 10:24 | NUR ---
PATIENT SITTING UP IN BED. RN IN ROOM. CALL LIGHT WITHIN REACH. NO OTHER NEEDS AT THIS TIME.
--- NOTE | 2018-01-06 10:26 | NUR ---
PUMP ALARMING, INFUSION COMPLETE. NEW BAG OF NS HUNG (SEE MAR). PT CONTINUES TO REPORT 7/10 PAIN. IBUPROFEN GIVEN (SEE MAR). PT RESTING IN BED WATCHING TV. PT STATES SHE WOULD LIKE A SHOWER LATER TODAY. WELFARE DIRECTOR INFOMRED. BED RAILSUP. CALL LIGHT WITHIN REACH.
--- NOTE | 2018-01-06 10:43 | NUR ---
CHANGED INCONTINENT GARMENT AND REPOSTIONED PATIENT IN BED WITH THE ASSISSTANT OF RN. DIANNETNET TILTED TO LEFT SIDE, REMAINS AT BEDSIDE.
--- NOTE | 2018-01-06 11:31 | NUR ---
STUDENT NURSE IN ROOM. PATIENT SITTING UP IN BED. PATIENT VISITING WITH A FAMILY MEMBER. CALL LIGHT WITHIN REACH. NO OTHER NEEDS AT THIS TIME.
--- NOTE | 2018-01-06 12:05 | NUR ---
STAND BY ASSIST WHILE PT AMBULATED TO BATHROOM FROM BED. BACK IN BED, CALL LIGHT WITHIN REACH, NO FURTHER ASSISTANCEN EED AT THIS TIME.
[2018-01-06] MEDS ORDERED: CIPROFLOXACIN250 MG PO (12:07)
--- NOTE | 2018-01-06 12:08 | NUR ---
INSULIN AND ASSESSMENT DUE. PT FINSHED WITH LUNCH AND UP TO RESTROOM WITH WEAVER NEEDLE LOOM. PT REPORTS FEELING BETTER. FOCUSED ASSESSMENT DONE. MD AT BEDSIDE ANDS STATES HE WILL BE DISCHARGEING PT. INSULIN GIVEN ORDERED. PT STATES SHE WOULD LIEK TO SHOWER BEFORE GOING HOME. WEAVER NEEDLE LOOM AND STUDENT RN INFOMRED. PT STATES NO ADDITIONAL REQUESTS OR COMPLAINTS AT THIS TIME. BED RAILSUP. CALL LIGHT WITHIN REACH.
[2018-01-06] MEDS ORDERED: TOUJEO SOL300 UNIT/1 SUB-Q (12:18)
--- NOTE | 2018-01-06 12:35 | NUR ---
PT PERKED UP WHEN I ENTERED HER ROOM-SHE [id number] THAT SHE IS TO BE DC'D TODAY. SHE REACHED FOR MY HAND AND SMILED AND SAID SHE SLEPT WELL LAST NIGHT. SHE SEEMS VERY POSITIVE, EXTENDED A BLESSING WILL FOLLOW NEEDED
[2018-01-06] MEDS ORDERED: NEURONTIN300 MG PO (12:57)
[2018-01-06] MEDS ORDERED: MAGNESIUM CHLOR64 MG PO (13:00)
[2018-01-06] MEDS ORDERED: IBUPROFEN200 MG PO (13:03)
--- NOTE | 2018-01-06 13:14 | NUR ---
PT DISCHARGED, SEE DISCHARGE REPORT AND DON COMMENT.
--- NOTE | 2018-01-06 17:12 | EKG ---
[facility] [address] [facility] [place] [address] Signed Normal sinus rhythm Low voltage QRS Nonspecific T wave abnormality Abnormal ECG When compared with ECG of 05-OCT-2017 16:02, Nonspecific T wave abnormality, worse in Anterolateral leads Confirmed by CONCEPCION DUNHAM MD ([id number]) on 01/06/2018 5:12:28 PM Electronically Signed By: CONCEPCION DUNHAM MD 01/06/18 1712 PATIENT NAME: ERIK CHAVEZ Electrocardiogram DATE OF : 45 PHYSICIAN: CONCEPCION DUNHAM MD REPORT #: [id number] REPORT IS CONFIDENTIAL AND NOT TO BE RELEASED WITHOUT AUTHORIZATION
== END 2018-01-06 13:10 | disposition home or self-care (01) | DRG 871 ==
LOC: ED 11:25 → CCU 13:47 → MS 01-05 10:38 → CCU 01-05 10:39 → MS 01-05 20:31
PROVIDERS: ADMIT Internal Medicine
DX: A41.51 Sepsis due to Escherichia coli [E. coli] (principal); G93.41 Metabolic encephalopathy; N30.00 Acute cystitis without hematuria; N17.9 Acute kidney failure, unspecified; N18.4 Chronic kidney disease, stage 4 (severe); F11.20 Opioid dependence, uncomplicated; R65.20 Severe sepsis without septic shock; B96.89 Other specified bacterial agents as the cause of diseases classified elsewhere; E87.5 Hyperkalemia; M62.81 Muscle weakness (generalized); E11.22 Type 2 diabetes mellitus with diabetic chronic kidney disease; I12.9 Hypertensive chronic kidney disease with stage 1 through stage 4 chronic kidney disease, or unspecified chronic kidney disease; I25.10 Atherosclerotic heart disease of native coronary artery without angina pectoris; D69.6 Thrombocytopenia, unspecified; G30.9 Alzheimer's disease, unspecified; F31.9 Bipolar disorder, unspecified; G89.4 Chronic pain syndrome; Z66 Do not resuscitate; B96.20 Unspecified Escherichia coli [E. coli] as the cause of diseases classified elsewhere; F02.80 Dementia in other diseases classified elsewhere, unspecified severity, without behavioral disturbance, psychotic disturbance, mood disturbance, and anxiety; Z88.0 Allergy status to penicillin; Z79.4 Long term (current) use of insulin; Z86.718 Personal history of other venous thrombosis and embolism; Z87.891 Personal history of nicotine dependence; Z88.2 Allergy status to sulfonamides
CPT/HCPCS: 36415; 70450; 71045; 80048; 80053; 81001; 82570; 83605; 84300; 84484; 84540; 85025; 85610; 85730; 87040; 87088; 87184; 93005; 93010; J1630; J1650; J2060; J2270; J2310; J3490; J7030; J7040

== ENCOUNTER 2018-04-13 09:57 | Inpatient (IN) | payer MEDICARE, OTHER ==
[~2018-04-13] VITALS: Ht 182.9 cm; Wt 75.5 kg
[~2018-04-13 09:57] MED LIST changes: +GABAPENTIN300 MG PO; +IBUPROFEN200 MG PO; +LASIX20 MG PO; +MAGNESIUM CHLOR64 MG PO; +NEURONTIN300 MG PO; +TOUJEO SOL300 UNIT/1 SUB-Q
--- NOTE | 2018-04-13 14:00 | NUR ---
PT ARRIVED TO CCU VIA STRETCHER WITH SHOT CORE DRILL OPERATOR HELPER, PT AWAKE AND ORIENTED X4. PT ARRIVED WITH VIVEROS IN PLACE AND TEMP PROBE ON. HR 80'S ON ARRIVAL, BP 140'S. PT ABLE TO TURN WELL IN BED. PLACED FOAM PAD ON COCCYX FOR PROTECTION. SLIGHT BLANCHABLE REDDNESS NOTED.
--- NOTE | 2018-04-13 14:15 | NUR ---
PT ASSESSMENT COMPLETED. PT BREATH SOUNDS CLEAR AND PT IS ON RA. BOWEL TONES ACTIVE. NO EDEMA NOTED. PT IS AO X4. PT STATES SHE HAS CHRONIC PAIN AND A CAFFINE HEADACHE. PT DRINKS ICED TEA 24 HOURS A DAY. PT STATES SHE HASNT HAD ANY TEA TODAY. WILL GET HER SOME TEA TO HELP WITH HEADACHE.
[2018-04-13] MEDS ORDERED: MS CONTIN15 MG PO (14:42)
[2018-04-13] MEDS ORDERED: ZOLPIDEM TARTRAT5 MG PO (14:44)
--- NOTE | 2018-04-13 15:00 | NUR ---
PT REQUESTING TO HAVE HER FACILITY BRING HER DENTURES, BOOK, AND PLAYING CARDS. WILL CALL AND REQUEST FOR PATIENT. PT IS EATING LUNCH AT THSI TIME. PT ATE 100% OF MEAL.
--- NOTE | 2018-04-13 16:00 | NUR ---
PT RESTING IN BED. CALLED MD TO UPDATE REGAURDING PT REQUESTING HOME DOSE PAIN MEDICATION. FAXED [facility] FOR CURRENT PRESCRIPTION VERIFICATION. PER MD ORDER 15MG MORPHINE SULFATE. NOTIFIED PHARMACY OF MEDICATION.
--- NOTE | 2018-04-13 16:00 | NUR ---
PT STATES HEADACHE IS MUCH BETTER.
--- NOTE | 2018-04-13 18:30 | NUR ---
UPDATED MD REGUARDING PT URINE OUTPUT. PT IS MAAKING GOOD QUANTITIES OF URINE AT THIS TIME. UPDATED THAT PT REFUSED INSULIN AT DINNER. NO FEVER SINCE ADMISSION. PT REAMINS AOX4. PT IS PLAYING CARDS IN BED AT THIS TIME. PT CALLS APPROPRIATELY. PT STATES "I FEEL MUCH BETTER THAN EARLIER". WILL CONTINUE TO CLOSELY MONITOR.
--- NOTE | 2018-04-13 20:01 | NUR ---
PT SITTING IN BED, PLAYING CARDS. REQUESTED MORE ICE - PROVIDED. CALM AND COOPERATIVE, ORIENTED TO SITUATION. NO FURTHER NEEDS.
--- NOTE | 2018-04-13 20:40 | NUR ---
PT REFUSED HER INSULIN. REPORTS ONLY TAKING INSULIN IF BS GREATER THAN 200. TOOK HS PILLS. ASKED TO BE WOKEN UP AT 2300 TO TAKE MS CONTIN. PT WASHED FACE AND HANDS
--- NOTE | 2018-04-13 23:24 | NUR ---
PT AWOKE WHEN ENTERED ROOM. RATES PAIN 'EVERYWHERE' 03/01. 15MG MORPHINE GIVEN PO. NO FURTHER NEEDS. ASSESSMENT UNCHANGED FROM PREVIOUS.
--- NOTE | 2018-04-14 04:09 | NUR ---
PT HAS BEEN ASLEEP SINCE LAST ASSESSMENT AT 2330. NO S/S OF DISTRESS. URINE OUTPUT QS.
--- NOTE | 2018-04-14 07:30 | NUR ---
PT SHIFT REPORT RECEIVED FROM FINISHING AND SHIPPING SUPERVISOR RN. PT RESTING IN BED. PER REPORT PT SLEPT WELL. NO OTHER ISSUES AT THIS TIME. WILL CONTINUE TO CLOSELY MONITOR.
--- NOTE | 2018-04-14 08:00 | NUR ---
PT RESTING IN BED. BS TAKEN. PT BREAKFAST AT BEDSIDE.
--- NOTE | 2018-04-14 08:47 | NUR ---
PT ASSESSMENT COMPLETED. BREATH SOUNDS CLEAR AND ON RA. PT BOWEL TONES ACTIVE. PT STATES SHE HAS CHRONIC NUMBNESS/TINGLING IN HANDS/FEET. PT STATES GABAPENTIN HELPS THIS SIGNIFICANTLY. PT STATES CHRONIC GENERALIZED PAIN IS 4/10. PT STATES "I FEEL GOOD THIS MORNING, MUCH BETTER THAN WHEN I FIRST CAME IN". PT IS PLAYING CARDS AT THIS TIME. FELICE DRINING CLEAR YELLOW URINE.
[2018-04-14] MEDS ORDERED: BASAGLAR K100 UNIT/1 SUB-Q (09:25)
[2018-04-14] MEDS ORDERED: NITROFURANTOIN50 MG PO (09:26)
[2018-04-14] MEDS ORDERED: QUETIAPINE FUM400 M1 PO (09:40)
[2018-04-14] MEDS ORDERED: MORPHINE SULFAT15 MG PO (09:53)
[2018-04-14] MEDS ORDERED: ACETAMINOPHEN650 M1 PO (09:58)
[2018-04-14] MEDS ORDERED: LIDOCAINE HCL30 M1 TOP (10:00)
--- NOTE | 2018-04-14 10:15 | NUR ---
pt playing cards all morning and decdied to take a break and take a nap. pt resting. no other issues at this time. will continue to closely monitor.
--- NOTE | 2018-04-14 10:28 | NUR ---
MED REC COMPLETE
--- NOTE | 2018-04-14 11:00 | NUR ---
PER MD TO CAN TRANSFER TO [facility]. PT IS AGREEABLE TO THIS PLAN. PT ORDERED LUNCH. AFTER LUNCH PT WANTS A SHOWER AND THEN WILL TRANSFER TO NEW ROOM [address].
--- NOTE | 2018-04-14 12:40 | NUR ---
PT SHOWERED WITH RN ASSIST. PT DIDNT WANT TO WASH HER HAIR, BUT WASHED EVERYTHING ELSE. REMOVED VIVEROS PER MDS ORDER. PT TOELRATED WELL. PLACED ATTENDS FOR COMFORT. PT HAD SMALL BOWEL MOVEMENT. GAVE CHRIS FINK REPORT ON PATIENT. PT BROUGHT OVER IN WHEELCHAIR. PT TOELRATED WELL. PT HAS ALL BELONGINGS AT BEDSIDE. CHRIS FNIK WILL RESUME CARE OF THIS PATIENT AT THIS TIME.
--- NOTE | 2018-04-14 17:34 | NUR ---
PT TRANSFERED FROM CCU TODAY, VIVEROS REMOVED PRIOR TO TRANSFER AT NOON. PT HAS VOIDED 650ML. SHE REPORTS CHRONIC ONGOING PAIN "EVERYWHERE" SHE HAS HOME DOSE OF MORPHINE SCHEDULED. SHE HAS HAD NO NAUSEA, GOOD APPETITE. TOLERATES TRANSFERS STAND PIVOT OT BEDSIDE COMMODE WELL WITH SBA. 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 HAD BM TODAY. COOPERATIVE WITH CARE PLAN AT THIS TIME. PLAN TO DISCHARGE BACK TO [facility] TOMORROW
--- NOTE | 2018-04-14 19:15 | NUR ---
ROUNDED CHARGE. PATIENT IS RESTING IN RECLINER. NO NEEDS NOTED. CALL LIGHT IN REACH. NO COMMENTS, QUESTIONS, OR CONCERNS
--- NOTE | 2018-04-14 19:20 | NUR ---
Pt resting in chair reading book, iced tea and call light in reach. No needs voiced and report received from CHRIS Uribe.
--- NOTE | 2018-04-14 20:07 | NUR ---
HELPED PATIENT TO BEDSIDE COMMODE THEN TO BED. CALL LIGHT WITHIN REACH. PATIENT IS PLAYING CARDS.
--- NOTE | 2018-04-14 20:20 | NUR ---
PT RESTING IN BED PLAYING CARD GAME. ASSESSMENT COMPLETED AND PT PROVIDED WITH FRESH ICE TEA PT STATES SHE DOES NOT DRINK WATER, CALL LIGHT IN REACH NO FURTHER REQUESTS OR CONCERNS VOICED.
--- NOTE | 2018-04-14 22:10 | NUR ---
PLACED CALL TO MD ABOUT PATIENTS HOME SLEEP MEDICATIONS. RECEIVED NEW ORDER, VERIFIED NEW ORDER USING THE READBACK METHOD.
--- NOTE | 2018-04-14 23:29 | NUR ---
PT RESTING IN BED, STATES "I CAN'T GET ANY SLEEP" AMBIEN PO AND MORPHINE 15MG PO ADMINSITERED AT THIS TIME. PT UP TO BSC WITH STANDBY ASSIST. CALL LIGHT IN REACH.
--- NOTE | 2018-04-14 23:34 | NUR ---
PT USES CALL LIGHT APPROPRIATLEY AND ASSISTED BACK INTO BED WITH STANDBY ASSIST FROM BSC. CALL LIGHT IN REACH, FRESH ICE TEA PROVIDED PER REQUEST.
--- NOTE | 2018-04-15 01:03 | NUR ---
PT RESTING IN BED WATCHING TV, CALL LIGHT IN REACH. PT STATES "I'M DOING OKAY" NO NEEDS VOICED.
--- NOTE | 2018-04-15 02:40 | NUR ---
pt assessment performed, pt denies pain or nausea. no concerns or requests voiced. call light in reach.
--- NOTE | 2018-04-15 05:06 | NUR ---
pt resting supine in bed, RR16, iced tea and call light in reach. Pt appears to be sleeping comfortably.
--- NOTE | 2018-04-15 05:22 | NUR ---
PT SLEPT WELL THROUGH THE NIGHT, CHRONIC PAIN HAS BEEN WELL CONTROLED WITH SCHEDULED PO MORPHINE. PT SBA PIVOT TO BEDSIDE COMMODE, TOLORATES TRANSFERS WELL. PT HAS DENIED NAUSEA,SOB. PLAN TO DISCHARGE THIS MORNING BACK TO [facility].
--- NOTE | 2018-04-15 08:19 | NUR ---
REPORT RECEIVED FROM TITUS PEREZ THIS AM, PATIENT ASSISTED UP IN BED AND BREAKFAST GIVEN TO HER AT THIS TIME. PATIENT REPORTS PAIN ALL OVER AT A 5/10 AT THIS TIME.
--- NOTE | 2018-04-15 08:48 | NUR ---
PT SHOWERED WITH ASSISTANCE. TRANFERED 1PA TO SHOWER CHAIR. LINENS CHANGED. PT IN CHAIR WATCHING TV.
--- NOTE | 2018-04-15 09:30 | NUR ---
PATIENT'S IV IN THE RIGHT ARM IS RED AND SORE, IV DC'D TIP INTACT. PATIENT FINISHED A SHOWER WITH THE AUDIT MACHINE OPERATOR. HAS NO C/O PAIN OR NAUSEA.
[2018-04-15] MEDS ORDERED: CIPROFLOXACIN500 MG PO (10:24)
[2018-04-15] MEDS ORDERED: SEROQUEL XR400 MG PO (10:31)
--- NOTE | 2018-04-15 11:01 | NUR ---
DISCHARGE EDUCATION GIVEN TO PT WITH PACKET WITH LAST DOSE AND NEXT DOSE WRITTEN ON PAPERS. MEDICATION EDUCATION PROVIDED WITH POSSIBLE SIDE EFFECTS. ALSO DISCUSSED SIGNS AND SYMPTOMS TO MONITOR FOR FOR RE-OCCURRING UTI AND TO SEEK MEDICAL ATTENTION QUICKLY. PT VERBALIZES UNDERSTANDING AND INSTRUCTION BACK. I.V. WAS REMOVED THIS AM BY PRIMARY RN GÓMEZ. PT REQUEST TAXI RIDE, TICKET PREPARED AND READY FOR DISCHARGE
--- NOTE | 2018-04-15 11:28 | NUR ---
assisted patient to get dressed, and taxi called to drive patient back home to [facility]. patient has been given d/c instructions and questions answered. pharmacy was in to see the patient.
== END 2018-04-15 11:40 | disposition home or self-care (01) | DRG 872 ==
LOC: ED 09:57 → CCU 12:59 → MS 04-14 12:25
PROVIDERS: ADMIT Internal Medicine
DX: A41.89 Other specified sepsis (principal); N39.0 Urinary tract infection, site not specified; E11.22 Type 2 diabetes mellitus with diabetic chronic kidney disease; I12.9 Hypertensive chronic kidney disease with stage 1 through stage 4 chronic kidney disease, or unspecified chronic kidney disease; N18.3 Chronic kidney disease, stage 3 (moderate); E79.0 Hyperuricemia without signs of inflammatory arthritis and tophaceous disease; F31.9 Bipolar disorder, unspecified; F41.8 Other specified anxiety disorders; K21.9 Gastro-esophageal reflux disease without esophagitis; G89.4 Chronic pain syndrome; F03.90 Unspecified dementia, unspecified severity, without behavioral disturbance, psychotic disturbance, mood disturbance, and anxiety; H54.8 Legal blindness, as defined in USA; Z66 Do not resuscitate; M79.7 Fibromyalgia; I25.2 Old myocardial infarction; Z90.710 Acquired absence of both cervix and uterus; Z90.722 Acquired absence of ovaries, bilateral; Z90.49 Acquired absence of other specified parts of digestive tract
CPT/HCPCS: 36415; 51702; 71045; 80048; 80053; 81001; 83605; 83735; 85025; 85610; 85730; 96361; 96374; 99285; J0744; J3475; J7030; J7120

== ENCOUNTER 2018-09-19 20:52 | Observation (INO) | payer MEDICARE, OTHER ==
[~2018-09-19] VITALS: Ht 182.9 cm; Wt 73.8 kg
[~2018-09-19 20:52] MED LIST changes: +ACETAMINOPHEN650 M1 PO; +BASAGLAR K100 UNIT/1 SUB-Q; +CIPROFLOXACIN500 MG PO; +LIDOCAINE HCL30 M1 TOP; +NITROFURANTOIN50 MG PO; +QUETIAPINE FUM400 M1 PO; +ZOLPIDEM TARTRAT5 MG PO
--- OUTSIDE RECORDS SUMMARY | 2018-09-19 20:58 | XMS ---
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 - 2 Visits in 30 Days CARE PROVIDERS [facility] 04/14/2018-Angela Lai PHONE: Unknown Riley Nice MD PHONE: Unknown CARMEN Wilson or Client Success Director 03/22/2017-Current PHONE: [phone] ROB Lai Primary [facility] 09/22/2005-Angela LYLES PHONE: Unknown Jie has no Care Guidelines for this patient. Care History Medical/Surgical 12/22/2017 [facility] Care Recommendation: This patient has had 5 or more Emergency Department visits in the last 12 months. Patient requires education on the scope and purpose of the ED as an acute care provider not a Primary Care Provider and should not be utilized for chronic conditions. If patient returns to ED please contact Community Health WorkerBarbara at [phone]. These are guidelines and the provider should exercise clinical judgment when providing care. EJw. VISIT COUNT (12 MO.) 8 [facility]. TOTAL 8 NOTE: Visits indicate total known visits. ED/UCC VISIT TRACKING (12 MO.) 09/19/2018 20:53 [facility] TYPE: Emergency COMPLAINT: - POSS UTI/POS PNEUMONIA 09/06/2018 14:14 [facility] TYPE: Emergency COMPLAINT: - AMS/UTI 04/13/2018 09:57 [facility] TYPE: Emergency COMPLAINT: - ALTERED LOC 01/04/2018 11:25 [facility] TYPE: Emergency COMPLAINT: - BLOOD SUGAR PROBLEM 12/21/2017 16:28 [facility] TYPE: Emergency COMPLAINT: - GLF DIAGNOSES: - Cervicalgia - Low back pain - Allergy status to sulfonamides status - Allergy status to narcotic agent status - skilled nursing (current) use of insulin - Essential (primary) hypertension - skilled nursing (current) use of opiate analgesic - Type 2 diabetes mellitus with diabetic neuropathy, unspecified - Other half-way (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 - Old myocardial infarction - Allergy status to other drugs, medicaments and biological substances status - Fall on same level from slipping, tripping and stumbling with subsequent striking against other object, initial encounter - Personal history of nicotine dependence - Latex allergy status - Allergy status to penicillin 12/12/2017 20:19 [facility] TYPE: Emergency COMPLAINT: - MULTIPLE COMPLAINTS DIAGNOSES: - Allergy status to sulfonamides status - skilled nursing (current) use of insulin - 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 - Essential (primary) hypertension - Allergy status to serum and vaccine status - Latex allergy status - Altered mental status, unspecified - Chronic kidney disease, unspecified - Type 2 diabetes mellitus with diabetic chronic kidney disease - Dorsalgia, unspecified - Allergy status to other antibiotic agents status - Other allergy status, other than to drugs and biological substances - Type 2 diabetes mellitus with diabetic neuropathy, unspecified - Adverse effect of unspecified narcotics, initial encounter - Allergy status to penicillin - Allergy status to other drugs, medicaments and biological substances status - Allergy status to narcotic agent status - Old myocardial infarction 10/17/2017 14:35 [facility] TYPE: Emergency COMPLAINT: - URINATING ISSUES DIAGNOSES: - Old myocardial infarction - Allergy status to other drugs, medicaments and biological substances status - Allergy to other foods - Type 2 diabetes mellitus without complications - Retention of urine, unspecified - Allergy status to penicillin - Essential (primary) hypertension - Allergy to seafood - Radiographic dye allergy status - Personal history of urinary (tract) infections - Latex allergy status - 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 - skilled nursing (current) use of insulin - Allergy status to other antibiotic agents status - Allergy status to sulfonamides status - Personal history of nicotine dependence - Acquired absence of other specified parts of digestive tract 10/05/2017 11:38 [facility] TYPE: Emergency COMPLAINT: - GLF/HIP INJURY INPATIENT VISIT TRACKING (12 MO.) 09/06/2018 14:15 [facility] TYPE: Medical Surgical COMPLAINT: - UTI DIAGNOSES: - Allergy status to sulfonamides status - Fibromyalgia - Latex allergy status - Gastro-esophageal reflux disease without esophagitis - Legal blindness, as defined in [place] - Hypertensive chronic kidney disease with stage 1 through stage 4 chronic kidney disease, or unspecified chronic kidney disease - Do not resuscitate - Disorientation, unspecified - Allergy status to serum and vaccine status - Old myocardial infarction - Type 2 diabetes mellitus with diabetic chronic kidney disease - Unspecified dementia without behavioral disturbance - Allergy status to narcotic agent status - Anxiety disorder, unspecified - skilled nursing (current) use of antibiotics - Type 2 diabetes mellitus with diabetic polyneuropathy - Personal history of other venous thrombosis and embolism - Personal history of urinary (tract) infections - Urinary tract infection, site not specified - Allergy status to penicillin - skilled nursing (current) use of insulin - Bipolar disorder, unspecified - Chronic pain syndrome - Urinary tract infection, site not specified - Chronic kidney disease, stage 3 (moderate) - Allergy status to other drugs, medicaments and biological substances status - Allergy status to other antibiotic agents status - Personal history of nicotine dependence - Allergy status to anesthetic agent status - Essential (primary) hypertension - Hyperuricemia without signs of inflammatory arthritis and tophaceous disease - Other half-way (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 - local intermodal truck driver (current) use of opiate analgesic 04/13/2018 12:[address] [facility] [place] TYPE: Medical Surgical COMPLAINT: - SEPSIS DIAGNOSES: - Other specified anxiety disorders - Chronic kidney disease, stage 3 (moderate) - Unspecified dementia without behavioral disturbance - Acquired absence of both cervix and uterus - Chronic pain syndrome - Type 2 diabetes mellitus with diabetic chronic kidney disease - Hypertensive chronic kidney disease with stage 1 through stage 4 chronic kidney disease, or unspecified chronic kidney disease - Bipolar disorder, unspecified - Acquired absence of ovaries, bilateral - Do not resuscitate - Other specified sepsis - Gastro-esophageal reflux disease without esophagitis - Hyperuricemia without signs of inflammatory arthritis and tophaceous disease - Urinary tract infection, site not specified - Acquired absence of other specified parts of digestive tract - Legal blindness, as defined in [place] - Fibromyalgia - Sepsis, unspecified organism - Old myocardial infarction 01/04/2018 13:47 [facility] TYPE: Medical Surgical COMPLAINT: - SEVERE SEPSIS DIAGNOSES: - Hypertensive chronic kidney disease with stage 1 through stage 4 chronic kidney disease, or unspecified chronic kidney disease - Atherosclerotic heart disease of [place] coronary artery without angina pectoris - Personal history of other venous thrombosis and embolism - Unspecified Escherichia coli [E. coli] as the cause of diseases classified elsewhere - Other specified bacterial agents as the cause of diseases classified elsewhere - Bipolar disorder, unspecified - Opioid dependence, uncomplicated - Chronic pain syndrome - Type 2 diabetes mellitus with diabetic chronic kidney disease - skilled nursing (current) use of insulin - Altered mental status, unspecified - Hyperkalemia - Dementia in other diseases classified elsewhere without behavioral disturbance - Thrombocytopenia, unspecified - Do not resuscitate - Allergy status to sulfonamides status - Severe sepsis without septic shock - Alzheimer's disease, unspecified - Muscle weakness (generalized) - Chronic kidney disease, stage 4 (severe) - Sepsis due to Escherichia coli [E. coli] - Acute cystitis without hematuria - Allergy status to penicillin - Personal history of nicotine dependence - Acute kidney failure, unspecified - Metabolic encephalopathy 10/05/2017 16:50 [facility] TYPE: Medical Surgical COMPLAINT: - R HIP FRACTURE DIAGNOSES: - Allergy status to penicillin - Alzheimer's disease, unspecified - Type 2 diabetes mellitus with diabetic neuropathy, unspecified - Hypoxemia - Displaced fracture of greater trochanter of right femur, initial encounter for closed fracture - Fall on same level, unspecified, initial encounter - Personal history of other venous thrombosis and embolism - skilled nursing (current) use of insulin - Acquired absence of both cervix and uterus - Dementia in other diseases classified elsewhere without behavioral disturbance - Essential (primary) hypertension - Type 2 diabetes mellitus with hyperglycemia - Personal history of nicotine dependence - Urinary tract infection, site not specified [email or web address]
[2018-09-20] MEDS ORDERED: VITAMIN D250000 UNIT PO (00:23)
[2018-09-20] MEDS ORDERED: PANTOPRAZOLE SO40 MG PO (00:39)
[2018-09-20] MEDS ORDERED: LANTUS100 UNITS/ SUB-Q (00:40)
--- NOTE | 2018-09-20 01:00 | NUR ---
PATIENT ARRIVED TO ROOM 128 FROM ER VIA STRETCHER. PATIENT ABLE TO SLIDE TO HOSPITAL BED INDEPENDENTLY. PATIENT IS ALERT AND ORIENTED X4, DROWSY. BREATHING IS EVEN AND UNLABORED, O2 SATURATION IS >95% ON 2L O2. SPO2 DOWN TO 88% WHEN ON ROOM AIR. NORMAL SALINE BOLUS THAT WAS STARTED IN ER INFUSING. DR. DÍAZ AT BEDSIDE, ED NURSE NOTIFIED HER THAT PATIENT'S DIASTOLIC PRESSURES HAVE BEEN IN HIGH 30s, LOW 40s. NO NEW ORDERS AT THIS TIME, STATES TO CONTINUE IV BOLUS AND START MAINTENANCE FLUIDS ONCE BOLUS IS DONE. PERIPHERAL PULSES ARE +1, CAP REFILL >3 SECONDS. LUNG SOUNDS CLEAR, BOWEL TONES ACTIVE, ATTENDS ARE CLEAN AT THIS TIME. PATIENT DENIES NEEDS AT THIS TIME. CALL LIGHT WITHIN REACH, BED ALARM ON.
--- NOTE | 2018-09-20 02:00 | NUR ---
PATIENT IS RESTFUL WITH EYES CLOSED, BREATHING IS EVEN AND UNLABORED, O2 SATURATION 95% ON 2L O2. MAINTENANCE FLUIDS INFUSING, CALL LIGHT WITHIN REACH, BED ALARM ON.
--- NOTE | 2018-09-20 03:34 | NUR ---
PATIENT UP TO BEDSIDE COMODE WITH 2PA. ATTEMPTED TO VOID URINE, WAS UNABLE, HAD SMALL AMOUNT OF LOOSE STOOL. NOW BACK IN BED, BLADDER SCAN DONE, 661 ML OR URINE RESULT. NOTIFIED DR. DÍAZ ABOUT URINARY RETENTION, ORDERED VIVEROS CATHETER. ALSO UPDATED HER ABOUT LOW DIASTOLIC PRESSURES AND MAPS LESS THAN 60, 250 ML BOLUS OF NORMAL SALINE ORDERED.
--- NOTE | 2018-09-20 04:35 | NUR ---
PATIENT RESTFUL WITH EYES CLOSED, BREATHING IS EVEN AND UNLABORED, O2 SATURATION IS 98% ON 2L O2, TITRATED TO 1L. PATIENT IS ALERT AND ORIENTED X4, OPENS EYES SPONTANEOUSLY. DENIES NEEDS AT THIS TIME. CALL LIGHT WITHIN REACH, BED ALARM ON. IVF INFUSING
--- NOTE | 2018-09-20 05:43 | NUR ---
NOTIFIED DR. DÍAZ THAT PATIENT CONTINUES TO HAVE LOW MAPs RANGING FROM 49 TO 53. 250 ML BOLUS OF NORMAL SALINE ORDERED.
--- NOTE | 2018-09-20 08:24 | NUR ---
IV SITES INTACT, NO REDNESS OR SWELLING NOTED, FLUSHES AND FLUIDS INFUSE EASILY. PT SLEEPING AT THIS TIME DOES NOT WAKE WITH BLOOD SUGAR CHECK OR LOVENOX SHOT IN ABD. PT VITALS STABLE AT THIS TIME. PT SONORING, APPEARS COMFORTABLE. O2 SAT IS 100% ON 1L O2 NC.
--- NOTE | 2018-09-20 11:20 | NUR ---
ALFREDO GRIGGS THE SILICA FILTER OPERATOR FROM [facility] CALLED FOR AN UPDATE ON PT. UPDATE GIVEN.
--- NOTE | 2018-09-20 11:30 | NUR ---
RENAN, SON OF THE PT, IS AT THE BEDSIDE WITH PT. PT ABLE TO WAKE UP AND HAVE MEANINGFUL CONVERSATION WITH HER SON. PT WANTS TO KNOW WHY SHE DIDN'T GET BREAKFAST, EDUCATED PT ON NPO STATUS.
--- NOTE | 2018-09-20 11:50 | NUR ---
PATIENT CALLED FOR ASSISTANCE AND IS REQUESTING BREAKFAST. PATIENT REMINDED THAT SHE IS NPO AT THIS TIME AND OFFERED AN ORAL SWAB. PATIENT INDEPENDENTLY PERFORMED ORAL SWAB WITH LEMON GLYCERIN SWABS, AND APPLIED CHAPSTICK TO HER LIPS. PATIENT STATES THAT "THE REASON I OVERDOSE IS BECAUSE I TAKE ABOUT 12 OF THE ASPIRINS WITH CAFFEINE IN IT A DAY AND MY DOCTOR DOESNT KNOW I TAKE IT, AND SUNRIDGE DOESNT KNOW I TAKE IT". RN NOTIFIED. PATIENT CALL LIGHT IN REACH, VISITORS IN ROOM. NO OTHER NEEDS AT THIS TIME.
--- NOTE | 2018-09-20 14:50 | NUR ---
CALLED TO UPDATE ON PT STATUS, PT IS AWAKE AND TALKING WITH SON AND RN. PT BLOOD GLUCOSE IS 78. PT REQUESTING TO DRINK FLUIDS. ORDER GIVEN TO ADVANCE PT DIET. PT REQUESTED AND WAS GIVEN ORANGE JUICE. HEAD OF PT BED UP TO 30 DEGREES.
--- NOTE | 2018-09-20 15:15 | NUR ---
IN WITH PT AND SON, DETAILED DISCUSSION HAD ABOUT MEDICATIONS AT HOME AND MANAGEMENT.
--- NOTE | 2018-09-20 16:15 | NUR ---
PT INCONTINENT OF LOOSE STOOL AND UNAWARE. DASHAWN CARES DONE, VIVEROS CATH DC'D, ATTENDS IN PLACE.
--- NOTE | 2018-09-20 16:31 | NUR ---
THIS DIRECTOR OF INSTRUCTION ASSISTED TO REMOVE PATIENTS VIVEROS. PATIENT HAD MEDIUM SIZED LIQUID BM WITH DARK TARRY COLOR. CHRIS TOVAR AND IKE TO BEDSIDE. PERICARE AND SKINCARE PERFORMED, PATIENT IN CLEAN ATTENDS AND REPOSITIONED IN BED. PATIENT CALL LIGHT IN REACH, NO OTHER NEEDS AT THIS TIME.
--- NOTE | 2018-09-20 16:51 | NUR ---
PT UP TO BSC WITH ONE PERSON ASSIST.
--- NOTE | 2018-09-20 16:59 | NUR ---
THIS DEPUTY COUNTY CLERK ASSISTED PATIENT UP TO BEDSIDE COMMODE. PATIENT ABLE TO TRANSFER HERSELF WITH STANDBY ASSISTANCE. PATIENT PERFORMED PERICARE. PATIENT HAD LARGE LIQUID BOWEL MOVEMENT WITH DARK BROWN COLORING. SOME RED SMEARING NOTICED ON WIPES WHEN PATIENT PERFORMED PERICARE, RN NOTIFIED. PATIENT RESTING BACK IN BED, CALL LIGHT IN REACH. BED ALARM ON. NO OTHER NEEDS AT THIS TIME.
--- NOTE | 2018-09-20 17:01 | NUR ---
PT TRANSFERED TO THE COMMODE AND BACK TO BED WITH MINIMAL ONE PERSON ASSIST. PT ALERT AND ORIENTED TO SELF, PLACE, AND FOLLOWING DIRECTIONS. VITALS WNL AT THIS TIME.
--- NOTE | 2018-09-20 17:34 | NUR ---
Medications reconciled with facility [facility]
--- NOTE | 2018-09-20 18:21 | NUR ---
PT MOVED TO ROOM 126 FROM 128
--- NOTE | 2018-09-20 18:25 | NUR ---
THIS AUTOMOBILE UPHOLSTERER ASSISTED PATIENT TO MOVE ROOMS AND SIT UP ON THE COMMODE. PATIENT BACK IN BED IN NEW ROOM, CALL LIGHT IN REACH. NO OTHER NEEDS AT THIS TIME.
--- NOTE | 2018-09-20 20:00 | NUR ---
CHRIS ROSSI ASSISTED PATIENT TO BEDSIDE COMODE, SBA. NOW RESTING IN BED AGAIN, BREATHING IS EVEN AND UNLABORED. DENIES FURTHER NEEDS. CALL LIGHT WITHIN REACH, BED ALARM ON.
--- NOTE | 2018-09-20 22:00 | NUR ---
PATIENT RESTFUL IN BED WITH EYES CLOSED, BREATHING IS EVEN AND UNLABORED. AROUSES EASILY TO VOICE. DENIES NEEDS AT THIS TIME. ASSESSMENT DONE. CALL LIGHT WITHIN REACH, BED ALARM ON.
--- NOTE | 2018-09-20 23:55 | NUR ---
NOTIFIED DR. DÍAZ THAT PATIENT'S IV INFILTRATED, DUE TO POOR VASCULAR ACCESS, NEW IV STARTED IN LEFT GILL. STATES THAT THIS IS OKAY.
--- NOTE | 2018-09-21 00:49 | NUR ---
PT CALLED TO USE BATHROOM, UP WITH 1-PA TO BSC. PT HAD SMALL INCONTINENT STOOL IN ATTENDS, HAD 100ML LIQUID BM AND 200ML URINE. NEW ATTENDS AND PERICARE PROVIDED, PT RETURNED TO BED. BED ALARM ON FOR SAFETY.
--- NOTE | 2018-09-21 02:00 | NUR ---
BLOOD SUGAR NOED TO BE 89, PROVIDED PATIENT WITH PUDDING.
--- NOTE | 2018-09-21 03:06 | NUR ---
PATIENT UP TO BEDSIDE COMODE WITH SBA. NOW RESTING IN BED AGAIN. DENIES FURTHER NEEDS. CALL LIGHT WITHIN REACH, BED ALARM ON. IVF INFUSING PER ORDER, IV SITE REMAINS INTACT, NO SIGNS OF INFLAMMATION.
--- NOTE | 2018-09-21 04:31 | NUR ---
PATIENT UP TO BEDSIDE COMMODE, SBA. NOW RESTING IN BED AGAIN. DENIES FURTHER NEEDS. CALL LIGHT WITHIN REACH, BED ALARM ON.
--- NOTE | 2018-09-21 06:24 | NUR ---
PATIENT UP TO BEDSIDE COMODE, SBA. NOW RESTING IN BED AGAIN. DENIES FURTHER NEEDS. CALL LIGHT WITHIN REACH.
--- NOTE | 2018-09-21 07:58 | NUR ---
Enoxaparin dose increased to 40mg daily due to improved renal function with est CrCl = 38.1ml/min
--- NOTE | 2018-09-21 08:00 | NUR ---
PT REPORT RECEIVED FROM SLUMBER ROOM ATTENDANT RN. PT IS RESTING IN BED AT THIS TIME. BREAKFAST ORDERED. WILL CONTINUE TO CLOSELY MONITOR.
--- NOTE | 2018-09-21 09:30 | NUR ---
PT UP TO CAMMODE X2. PT IS A STAND-BY ASSIST. PT TOLERATED WELL. ASSESSMENT COMPELTED. BREATH SOUNDS COURSE AND PT NOTED TO HAVE A COUGH. SPO2 94% ON RA. WILL CONTINUE TO CLOSELY MONTIOR.
--- NOTE | 2018-09-21 09:32 | NUR ---
RECIEVED TELEPHONE REPORT FROM CHRIS MILLER, PT IS TO TRANSFER TO MED/SURG FLOOR, ROOM 115. PAUL REPORTED THAT PT'S BG CHECKS ARE Q6 HOURS, BUT PT IS NOT NPO. CLARRIFIED THIS ORDER WITH DR. DÍAZ, WHO STATED THAT THIS ORDER IS TO BE CHANGED TO AC AND HS. ORDER PLACED.
--- NOTE | 2018-09-21 09:45 | NUR ---
PT REPORT CALLED TO ANTONIO PEREZ. PT WILL TRANSFER TO ROOM 115. PT IS AGREEABLE TO TRANSFER. UPDATED RN PT HAS A FIELD START IV THAT NEEDS DC'D, BLOOD SUGAR CHECKS ARE STILL Q6 HOURS, AND FLUIDS ARE NOW OFF AT THIS TIME. PT TRANSFERED IN CHAIR. CINDY MENA IN THE ROOM TO HELP HER TRANSFER PT BACK TO THE BED PER PT REQUEST.
--- NOTE | 2018-09-21 09:49 | NUR ---
PT ARRIVED TO FLOOR FROM CCU TO ROOM 115 VIA RECLINER AT 0940. PT AWAKE, ALERT, ORIENTED X 4. REPORTED PAIN, GENERALIZED, HAD IMPROVED TO 7/10. CINDY MENA OBTAINING VS.
--- NOTE | 2018-09-21 11:08 | NUR ---
PT RESTING QUIETLY IN BED, EYES CLOSED. PERSONAL SUPPLIES AND CALL BUTTON IN REACH.
--- NOTE | 2018-09-21 11:50 | NUR ---
CHECKED PT'S BG, 216. NOTIFIED DR. DÍAZ, WHO STATED THAT SHE WOULD PLACE SLIDING SCALE INSULIN ORDERS. PT THEN UP TO BEDSIDE COMMODE WITH STANDBY ASSIST. PT SITTING UP ON COMMODE, AGREED TO CALL FOR ASSISTANCE WHEN FINISHED.
--- NOTE | 2018-09-21 12:47 | NUR ---
PT IN BED, RESTING, OPENED EYES WHEN DOOR TO ROOM WAS OPENED. PT ATE 25% OF LUNCH, DECLINED FURTHER PO INTAKE. PT HAS PERSONAL SUPPLIES AND CALL LIGHT IN REACH.
--- NOTE | 2018-09-21 13:50 | NUR ---
PATIENT IN BED WATCHING TV. PATIENT COMPLAINS OF WHOLE BODY ACHING, RN NOTIFIED. CALL LIGHT IN REACH. NO FURTHER NEEDS AT THIS TIME.
--- NOTE | 2018-09-21 15:23 | NUR ---
PT IN BED, WATCHING TV. GAVE SCHEDULED MEDIATION. PT HAS PERSONAL SUPPLIES AND CALL LIGHT IN REACH. PT WAS RECIEVING A NEB TX FROM CHRIS PLUNKETT, AND COMPLAINED THAT THE NEB TX MADE HER "CHOKE". WHEN ASKED TO DESCRIBE THIS, PT REPORTED THAT THE NEB TX MADE HER COUGH, AND THAT SHE FELT THAT SPUTUM STARTED TO COME UP, BUT NOT ALL THE WAY WHEN SHE USED NEB TX. EDUCATED PT THAT SHE SHOULD BE DOING DEEP BREATHING AND COUGHING. RT DIMITRIOS EDUCATED PT THAT COUGHING WITH NEB TX IS TO BE EXPECTED, AND THAT SHE WANTS HER TO COUGH TO POTENTIALLY BRING SPUTUM UP AND EXPECTORATE IT. PT AGREED TO DEEP BREATH AND COUGH SEVERAL TIMES AN HOUR. PT HAS PERSONAL SUPPLIES AND CALL LIGHT IN REACH. DENIED NEEDS.
--- NOTE | 2018-09-21 16:12 | NUR ---
PT C/O 06/01 PAIN, "ALL OVER". NOTIFIED DR. DÍAZ, WHO PLACED ORDER FOR MORPHINE 15 MG PO X 1, AND CHANGED MORPHINE SCHEDULED ORDER FROM BID TO TID. GAVE PT ONE TIME DOSE OF MORPHINE. PT AWAKE, ALERT, ORIENTED X 4.
--- NOTE | 2018-09-21 17:43 | NUR ---
PATIENT IN BED WATCHING TV. CALL LIGHT IN REACH. NO FURTHER NEEDS AT THIS TIME. WARM BLANKET GIVEN.
--- NOTE | 2018-09-21 17:48 | NUR ---
PT ATE APROXIMATELY 50% OF DINNER, TOLERATED WELL. RATED PAIN "ALL OVER" AT 7/10. REPORTED THAT HER BASELINE LEVEL OF PAIN DAY TO DAY WITH HER HOME PAIN MEDICATION REGIMEN IS A 7/10. THIS RN ASSISTED PT IN CALLING HER SON. PERSONAL SUPPLIES AND CALL LIGHT IN REACH. PT DENIED NEEDS.
--- NOTE | 2018-09-21 18:03 | NUR ---
PT TRANSFERED FROM CCU TO ROOM 115 THIS SHIFT. PT HAS CHRONIC PAIN. HAD MORPHINE 15 MG PO BID ORDERED, C/O ELEVATED PAIN, DR. DÍAZ CHANGED ORDER TO TID, SO PT RECIEVED SECOND DOSE OF MORPHINE 15 MG PO THIS AFTERNOON. PT REPORTS CHRONIC BASELINE LEVEL OF PAIN IS 7/10 WITH PAIN MEDICATIONS, AND MOST RECENTLY RATED PAIN LEVEL 7/10. PT ALERT, ORIENTED X 4. TRANSFERS FROM BED TO BEDSIDE COMMODE WITH 1 PERSON ASSIST. URINE OUTPUT QUANTITY SUFFICIENT. PT TOLERATED 50% OF DINNER. IV TO LEFT GILL SL. LUNGS COARSE, PT HAS CONGESTED, NONPRODUCTIVE COUGH. ON 1800 ADA DIET, WITH ACCU CHECKS AND SLIDING SCALE INSULIN ORDERED. PT'S BG AT DINNER TIME WAS 159, BUT PT REFUSED SLIDING SCALE INSULIN. DR. DÍAZ NOTIFIED.
--- NOTE | 2018-09-21 19:10 | NUR ---
RECEIVED REPORT FROM DAY SHIFT RN. PATIENT IS RESTING IN BED. NO NEEDS NOTED AT THIS TIME. CALL LIGHT IN REACH.
--- NOTE | 2018-09-21 21:45 | NUR ---
PATIENT ASSESMENT COMPLETED. PATIENTS EVENING MEDICATIONS GIVEN PER ORDER. PATIENT REFUSED SS INSULIN. EDUCATED PATIENT ON THE IMPORTANCE OF SS INSULIN. PATIENT STATED "I DONT TAKE ANY UNTIL I NEED 6 UNITS". PATIENT RATES PAIN AT A 7/10. PATIENT GIVEN SHCEDULED PAIN MEDICATION PER ORDER. PATIENTS VITALS TAKEN AND RECORDED. PATIENT SELF TRANSFERED TO WHEELCHAIR AND WHEELED HERSELF INTO THE RESTROOM AND SELF TRANSFERED HERSELF TO TOILET. PATIENT WAS ABLE TO VOID. PATIENT THE SELF TRANSFERED BACK TO BED. PATIENT TOELRATED ACTIVITY WELL. PATIENT REQUIRED NO ASSISTANCE WITH TRANSFERS. PATIENT PROVIDED WITH WARM BLANKET. PATIENT IS RESTING IN BED. PATIENT GIVEN ICE AND SF JELLO. NO FURTHER NEEDS NOTED. CALL LIGHT IN REACH.
--- NOTE | 2018-09-22 00:09 | NUR ---
PATIENT IS RESTING IN BED WITH EYES CLOSED, RR 17. CALL LIGHT IN REACH.
--- NOTE | 2018-09-22 02:39 | NUR ---
PATIENT FOUND OUT OF BED ON HER OWN. PATIENT WAS SITTING IN WHEELCHAIR BESIDE BED. PATIENT IS NOW BACK IN BED RESTING. PATIENT WENT TO THE RESTROOM ON HER OWN. PATIENT EDUCATED ON THE USE OF THE CALL LIGHT. PATIENT EDUCATED ON FALL PREVENTION AND SAFETY. PATIENT VERBALIZED UNDERSTANDING. PATIENT DENIES IS BACK IN BED RESTING WITH ALARM ON FOR SAFETY. CALL LIGHT IN REACH. ASSESMENT COMPLETED.
--- NOTE | 2018-09-22 03:55 | NUR ---
PATIENT IS RESTING IN BED WITH EYES CLOSED, RR 17. CALL LIGHT IN REACH.
--- NOTE | 2018-09-22 05:43 | NUR ---
PATIENT RESTED WELL THROUGHOUT THE SHIFT. PATIENT IS ON AN AD DIET AND IS TOLERATING IT WELL, NO NAUSEA NOTED. PATIENT HAS NO IV-MD AWARE. PATIENT SELF TRANSFERS TO PERSONAL WHEEL CHAIR W/NO ASSISTANCE. PATIENT IS ON RA. PATIENT HAS BS CHECKS AND REFUSED SS INSULIN-MD AWARE. PATIENT IS FORGETFUL AT TIMES. PATIENTS BED ALARM IS ON FOR SAFETY.
--- NOTE | 2018-09-22 06:23 | NUR ---
PATIENTS VITALS TAKEN AND RECORDED. PATIENT SELF TRANSFFERED TO [facility] WHEELCHAIR WITH NO ASSISTANCE. PATIENT WAS ABLE TO VOID. PATIENT IS NOW BACK IN BED RESTING. PATIENTS VITALS TAKEN AND RECORDED. INTAKE AND OUPUT RECORDED. PATIENT GIVEN DIET SODA PER REQUEST. NO FURTHER NEEDS NOTED. CALL LIGHT IN REACH.
--- NOTE | 2018-09-22 07:17 | NUR ---
RECIEVED BEDSIDE REPORT FROM CHRIS FROST. PT AWAKE, ALERT. DENIED NEEDS. PT HAS PERSONAL SUPPLIES AND CALL LIGHT IN REACH.
--- NOTE | 2018-09-22 07:58 | NUR ---
PT REPORTED 8/10 PAIN "ALL OVER". GAVE PT SCHEDULED AM MEDICATIONS, INCLUDING MORPHINE. PT REFUSED BREAKFAST, REFUSED TO GET OUT OF BED TO RECLINER OR W/C. PERSONAL SUPPLIES AND CALL LIGHT IN REACH. BED ALARM ON.
--- NOTE | 2018-09-22 09:46 | NUR ---
PATIENT IN BED RESTING WITH EYES CLOSED. CALL LIGHT IN REACH. NO FURTHER NEEDS AT THIS TIME.
--- NOTE | 2018-09-22 09:47 | NUR ---
PT IN BED, RESTING QUIETLY. OPENED EYES TO VERBAL STIMULI. RATED PAIN 7/10. REPORTS THAT AT BASELINE, PAIN LEVEL IS GENERALLY AT 7/10 WITH PAIN MEDICATION. DENIED NEEDS. PERSONAL SUPPLIES AND CALL LIGHT IN REACH.
--- NOTE | 2018-09-22 14:12 | NUR ---
PATIENT IN BED WATCHING TV. PATIENT ONLY WANTED JELLO FOR LUNCH. CALL LIGHT IN REACH. NO FURTHER NEEDS AT THIS TIME.
--- NOTE | 2018-09-22 16:20 | NUR ---
REPORT RECEIVED FROM LONG AT THIS TIME, ACCUCHECK DONE AT THIS TIME AND IT WAS 178, SHE REFUSED INSULIN AND STATES THAT SHE DOESN'T TAKE IT AT HOME UNLESS SHE IS ABOVE 200
--- NOTE | 2018-09-22 19:02 | NUR ---
RECIEVED CHANGE OF SHIFT REPORT FROM CHRIS MAGAÑA. PATIENT LAYING WAKE IN BED WATCHING TV. CALL LIGHT WITHIN REACH. POSSESSIONS AT BEDSIDE. ROOM AIR. NO MORE NEEDS AT THIS TIME.
--- NOTE | 2018-09-22 21:20 | NUR ---
ASSESSMENT COMPLETE. VITALS ASSESSED AND RECORDED. INPUT AND OUTPUT ASSESSED AND RECORDED. PATIENT REPORTS "8/10" PAIN THAT IS "ALL OVER", SCHEDULED PAIN MEDICATION PROVIDED PER ORDER. MEDICATIONS PROVIDED PER ORDER. BLOOD GLUCOSE ASSESSED TO BE WNL. PATIENT REPORTS SOB, OFFERED INTERVENTIONS, PATIENT REFUSES INTERVENTIONS, STATES "REST" HELPS. ICE TEA PROVIDED BY CARBIDE OPERATOR. MOTORIZED CHAIR AT BEDSIDE. POSSESSIONS AT BEDSIDE. CALL LIGHT WITHIN REACH. NO MORE NEEDS AT THIS TIME. BED ALARM ON FOR SAFETY.
--- NOTE | 2018-09-23 00:27 | NUR ---
ROUNDED ON PATIENT RESTING IN BED WITH EYES CLOSED. RESPIRATORY RATE IS EVEN AND UNLABORED. RR: 18. POSSESSIONS AT BEDSIDE. CALL LIGHT WITHIN REACH.
--- NOTE | 2018-09-23 02:49 | NUR ---
ROUNDED ON PATIENT RESTING IN BED WITH EYES CLOSED, RESPIRATORY RATE EVEN AND UNLABORED. RR: 14. CALL LIGHT WITHIN REACH.
--- NOTE | 2018-09-23 04:20 | NUR ---
ROUNDED ON PATIENT TO ASSIST PATIENT TO RESTROOM. PATIENT ABLE TO PIVOT TRANSFER SELF INTO WHEELCHAIR AND WHEEL SELF INTO BATHROOM AND TRANSFER SELF ONTO TOILET WITHOUT ASSISTANCE. PATIENT ABLE TO TRANSFER SELF BACK INTO WHEELCHAIR AND RETURN TO BED. VITALS ASSESSED. INTAKE AND OUTPUT ASSESSED AND RECORDED. PATIENT REPORTS HAVING SOB, ABLE TO SPEAK IN COMPLETE SENTENCES, AND STATES "NOTHING HELPS", DENIES INTERVENTIONS SUGGESTED BY THIS RN. PATIENT REPORTS PAIN IS A "8/10" THAT IS GENERALIZED, DENIES WANTING PAIN MEDICATION AT THIS TIME. DENIES CHEST PAIN. PATIENT REPORTS HAVING "ICHY HANDS", LOTION PROVIDED, REPORTS RELIEF. ICE TEA PROVIDED PER PATIENT REQUEST. CALL LIGHT WITHIN REACH. NO MORE NEEDS AT THIS TIME. BED ALARM ON FOR SAFETY.
--- NOTE | 2018-09-23 05:26 | NUR ---
SWING BED. ACCU CHECKS WITH SS. ADA DIET. SLEPT WELL THROUGHOUT THE SHIFT. ROOM AIR. NO IV. PATIENT IS A SELF PIVOT TRANSFER TO PERSONAL WHEELCHAIR AND IS ABLE TO WHEEL SELF TO RESTROOM SBA. USES CALL LIGHT APPROPRIATELY. BED ALARM ON FOR SAFETY.
--- NOTE | 2018-09-23 07:20 | NUR ---
REPORT RECEIVED FROM SPENSER, PATIENT RESTING IN BED, ACCUCHECK DONE BY RN MDS, NO INSULIN REQUIRED AT THIS TIME. PATIENT ORDERED ONLY DIET ROOTBEER FOR BREAKFAST.
--- NOTE | 2018-09-23 07:33 | NUR ---
PATIENT WAS AWAKE REFUSED BREAKFAST, FRESH WATER GIVEN. CALL LIGHT IN REACH.
--- NOTE | 2018-09-23 09:00 | NUR ---
AM MEDICATION GIVEN, PATIENT RESTING IN BED, NO C/O PAIN AND NO NEEDS. PATIENT WAITING TO BE D/C HOME.
[2018-09-23] MEDS ORDERED: GABAPENTIN100 MG PO (10:36)
[2018-09-23] MEDS ORDERED: LANTUS100 UNITS/ SUB-Q (10:38)
--- NOTE | 2018-09-23 11:39 | NUR ---
PATIENT BLOOD SUGAR 119, NO INSULIN REQUIRED AT THIS TIME, ATTEMPTED TO DO D/C INSTRUCTIONS PATIENT WANTS TO WAIT UNTIL SON ARRIVES.
--- NOTE | 2018-09-23 12:49 | NUR ---
PATIENT GIVEN D/C INSTRUCTIONS QUESTIONS ANSWERED, SON ALSO HERE FOR INSTRUCTIONS. PHARMACIST IN TO SPEAK TO THEM RE: HOME MEDICATIONS. VITALS DONE.
== END 2018-09-23 12:15 | disposition home or self-care (01) ==
LOC: ED 20:52 → CCU 20:54 → MS 09-21 09:40
PROVIDERS: ADMIT Internal Medicine
DX: T40.2X1A Poisoning by other opioids, accidental (unintentional), initial encounter (principal); G92 Toxic encephalopathy; E11.40 Type 2 diabetes mellitus with diabetic neuropathy, unspecified; E11.22 Type 2 diabetes mellitus with diabetic chronic kidney disease; I12.9 Hypertensive chronic kidney disease with stage 1 through stage 4 chronic kidney disease, or unspecified chronic kidney disease; N18.3 Chronic kidney disease, stage 3 (moderate); M19.90 Unspecified osteoarthritis, unspecified site; H54.8 Legal blindness, as defined in USA; G30.9 Alzheimer's disease, unspecified; F02.80 Dementia in other diseases classified elsewhere, unspecified severity, without behavioral disturbance, psychotic disturbance, mood disturbance, and anxiety; Z87.440 Personal history of urinary (tract) infections; I25.2 Old myocardial infarction; M79.7 Fibromyalgia; N17.9 Acute kidney failure, unspecified; F31.9 Bipolar disorder, unspecified; F41.9 Anxiety disorder, unspecified; G89.4 Chronic pain syndrome; E79.0 Hyperuricemia without signs of inflammatory arthritis and tophaceous disease; Z66 Do not resuscitate; Z87.891 Personal history of nicotine dependence; Z88.5 Allergy status to narcotic agent; Z88.0 Allergy status to penicillin; Z88.2 Allergy status to sulfonamides; Z88.7 Allergy status to serum and vaccine; Z88.8 Allergy status to other drugs, medicaments and biological substances; Z88.4 Allergy status to anesthetic agent; Z86.718 Personal history of other venous thrombosis and embolism; Z91.040 Latex allergy status; Z79.4 Long term (current) use of insulin; Z79.891 Long term (current) use of opiate analgesic; Z79.899 Other long term (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
CPT/HCPCS: 36415; 51701; 71045; 80048; 80053; 81001; 83735; 84100; 85025; 87077; 87088; 87186; 87502; 94640; 94760; 96361; 96372; 96374; 96375; 96376; 99284-25; G0378; J0744; J1650; J1815; J2310; J7030

== ENCOUNTER 2018-11-09 15:28 | Emergency (ER) | payer MEDICARE, OTHER ==
[~2018-11-09] VITALS: Ht 177.8 cm; Wt 71.4 kg
[~2018-11-09 15:28] MED LIST changes: +LANTUS100 UNITS/ SUB-Q; +PANTOPRAZOLE SO40 MG PO
--- OUTSIDE RECORDS SUMMARY | 2018-11-09 15:30 | XMS ---
PreManage Notification: ERIK CHAVEZ Security Account Development Associate Events No recent Security Events currently on file CRITERIA MET - Group Notification - [facility] - [facility] Guidelines - [facility] Natasha Millan Machine Cloth Examiner/College Service Officer 10/06/2018-Current PHONE: [phone] RAFAL [facility] 04/14/2018-Current ROB Lai PHONE: Unknown Natasha Millan Primary Care 10/06/2018-Current PHONE: [phone] Riley Nice MD PHONE: Unknown CARMEN MINOR Case or Rheumatology Nurse 03/22/2017-Current PHONE: [phone] ROB Lai Primary Care 09/22/2005-Current RAFAL PHONE: Unknown Jie has no Care Guidelines for this patient. Care History Medical/Surgical 12/22/2017 [facility] Care Recommendation: This patient has had 5 or more Emergency Department visits in the last 12 months. Patient requires education on the scope and purpose of the ED as an acute care provider not a Primary Care Provider and should not be utilized for chronic conditions. If patient returns to ED please contact Community Health WorkerBarbara at [phone]. These are guidelines and the provider should exercise clinical judgment when providing care. E.D. VISIT COUNT (12 MO.) [address] [place] [address] TOTAL 7 NOTE: Visits indicate total known visits. ED/UCC VISIT TRACKING (12 MO.) 11/09/2018 15:29 [facility] TYPE: Emergency COMPLAINT: - R ARMPIT INFECTION 09/19/2018 20:53 [facility] TYPE: Emergency COMPLAINT: - POSS UTI/POS PNEUMONIA 09/06/2018 14:14 [facility] TYPE: Emergency COMPLAINT: - AMS/UTI 04/13/2018 09:57 [facility] [place] TYPE: Emergency COMPLAINT: - ALTERED LOC 01/04/2018 11:25 [facility] TYPE: Emergency COMPLAINT: - BLOOD SUGAR PROBLEM 12/21/2017 16:28 [facility] TYPE: Emergency COMPLAINT: - GLF DIAGNOSES: - Cervicalgia - Low back pain - Allergy status to sulfonamides status - Allergy status to narcotic agent status - termite technician (current) use of insulin - Essential (primary) hypertension - termite technician (current) use of opiate analgesic - Type 2 diabetes mellitus with diabetic neuropathy, unspecified - Other penitentiary (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 - Old myocardial infarction [...] - Allergy status to sulfonamides status - correction (current) use of insulin - Other emt intermediate (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 - Essential (primary) hypertension [...] narcotic agent status - Old myocardial infarction INPATIENT VISIT TRACKING (12 MO.) 09/19/2018 20:54 [facility] TYPE: Medical Surgical COMPLAINT: - TOXIC ENCEPHALOPATHY DIAGNOSES: - Allergy status to anesthetic agent status - Alzheimer's disease, unspecified - Acute kidney failure, unspecified - Old myocardial infarction - Legal blindness, as defined in [place] - Hyperuricemia without signs of inflammatory arthritis and tophaceous disease - Allergy status to other drugs, medicaments and biological substances status - Fibromyalgia - Unspecified osteoarthritis, unspecified site - Bipolar disorder, unspecified - Allergy status to narcotic agent status - Personal history of nicotine dependence - Chronic pain syndrome - Anxiety disorder, unspecified - Other fatigue - correction (current) use of insulin - Personal history of other venous thrombosis and embolism - Poisoning by other opioids, accidental (unintentional), initial encounter - Allergy status to serum and vaccine status - Dementia in other diseases classified elsewhere without behavioral disturbance - Type 2 diabetes mellitus with diabetic neuropathy, unspecified - Personal history of urinary (tract) infections - Hypertensive chronic kidney disease with stage 1 through stage 4 chronic kidney disease, or unspecified chronic kidney disease - Other penitentiary (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 - Chronic kidney disease, stage 3 (moderate) - Type 2 diabetes mellitus with diabetic chronic kidney disease - Do not resuscitate - termite technician (current) use of opiate analgesic - Toxic encephalopathy - Latex allergy status - Allergy status to sulfonamides status - Allergy status to penicillin 09/06/2018 14:[address] [facility] [place] TYPE: Medical Surgical COMPLAINT: - UTI [...] agent status - Anxiety disorder, unspecified - termite technician (current) use of antibiotics - Type 2 diabetes mellitus with diabetic polyneuropathy - Personal history of other venous thrombosis and embolism - Personal history of urinary (tract) infections - Urinary tract infection, site not specified - Allergy status to penicillin - correction (current) use of insulin - Bipolar disorder, [...] inflammatory arthritis and tophaceous disease - Other emt intermediate (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 - correction (current) use of opiate analgesic 04/13/2018 12:59 [facility] TYPE: Medical Surgical COMPLAINT: - SEPSIS [...] kidney disease - Atherosclerotic heart disease of ione coronary artery without angina pectoris - Personal history of other venous thrombosis and embolism - Unspecified Escherichia coli [E. coli] as the cause of diseases classified elsewhere - Other specified bacterial agents as the cause of diseases classified elsewhere - Bipolar disorder, unspecified - Opioid dependence, uncomplicated - Chronic pain syndrome - Type 2 diabetes mellitus with diabetic chronic kidney disease - correction (current) use of insulin - Altered mental [...] Acute kidney failure, unspecified - Metabolic encephalopathy [email or web address]
== END 2018-11-09 18:35 | disposition home or self-care (01) ==
LOC: ED 15:28
DX: L72.3 Sebaceous cyst (principal); L02.411 Cutaneous abscess of right axilla; E11.9 Type 2 diabetes mellitus without complications; I10 Essential (primary) hypertension; Z87.891 Personal history of nicotine dependence; Z88.0 Allergy status to penicillin; Z88.8 Allergy status to other drugs, medicaments and biological substances; Z88.1 Allergy status to other antibiotic agents; Z91.040 Latex allergy status; Z88.5 Allergy status to narcotic agent; Z91.013 Allergy to seafood; Z79.4 Long term (current) use of insulin; Z79.891 Long term (current) use of opiate analgesic; Z79.899 Other long term (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
CPT/HCPCS: 10060; 99282-25

== ENCOUNTER 2022-05-30 09:49 | Observation (INO) | payer MEDICARE, OTHER ==
[~2022-05-30] VITALS: Ht 180.3 cm; Wt 77.0 kg
[~2022-05-30 09:49] MED LIST changes: +AMLODIPINE BESYL5 MG PO; +ASPIR-LOW81 MG PO; +CELEBREX100 MG PO; +MUPIROCIN22 GM TOP; +NAMENDA XR21 MG PO; +TRULICITY3 MG/0.5 M SUB-Q
[2022-05-30] MEDS ORDERED: JARDIANCE25 MG PO (11:07)
--- NOTE | 2022-05-30 16:40 | NUR ---
New admit to the medical floor. Patient is alert and oriented x4, no acute distress. Patient reports she has increased generalized weakness. Home wheelchair at bedside. IV fluids started per provider order. Patient oriented to room and call light.
[2022-05-30] MEDS ORDERED: VITAMIN D31250 MC1 PO (17:09)
[2022-05-30] MEDS ORDERED: CELEBREX100 MG PO (17:10)
[2022-05-30] MEDS ORDERED: PEPCID20 MG PO (17:11)
[2022-05-30] MEDS ORDERED: NEURONTIN300 MG PO (17:13)
[2022-05-30] MEDS ORDERED: DULCOLAX10 MG PR (17:15)
[2022-05-30] MEDS ORDERED: MILK OF MA400 MG/5 M PO (17:16)
[2022-05-30] MEDS ORDERED: PEPTO-BISM262 MG/15 PO (17:17)
[2022-05-30] MEDS ORDERED: SENNA-S 8.6-501 EACH PO (17:18)
[2022-05-30] MEDS ORDERED: TUMS200 MG PO (17:19)
--- NOTE | 2022-05-30 17:21 | NUR ---
MED REC COMPLETE
--- NOTE | 2022-05-30 18:13 | NUR ---
PT IN BED. VITALS AND IS AND OS TAKEN. NO NEEDS AT THIS TIME. CALL LIGHT WITHIN REACH.
--- NOTE | 2022-05-30 19:05 | NUR ---
SHIFT REPORT RECEIVED FROM DAYSHIFT CHRIS CEDEÑO AT BEDSIDE. pt AWAKE AND RESTING IN BED, NO NEEDS VERBALIZED BY pt. ON RA, RR EVEN AND UNLABORED. NO DISTRESS NOTED. CALL LIGHT IN REACH.
--- NOTE | 2022-05-30 19:52 | NUR ---
DUE TO NOTE OF 85% BLINDNESS IN REPORT, PLACED TANK CAR CLEANER CALL LIGHT FOR EASY FINDING/IDENTIFICATION FOR PT. PT IS CURRENTLY SLEEPING IN BED AND HAS NO FURTHER NEEDS AT THIS TIME. CALL LIGHT WITHIN REACH.
--- NOTE | 2022-05-30 20:50 | NUR ---
ASSESSMENT COMPLETE, NO SCHEDULED MEDICATION AT THIS TIME. pt AWAKE AND RESTING IN BED, SKIN INTACT, VIVEROS PATENT. CATH CARE DONE BY KRISTYN BLANCO. IV SITE WNL, SALINE LOCK AND FLUSHES WELL. pt DENIES PAIN AND NAUSEA, VSS, pt ON TELE #[id number]. 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 CALL LIGHT IN REACH, pt APPEARS IN GOOD SPIRITS. DENIES NEEDS OR CONCERNS.
--- NOTE | 2022-05-30 22:47 | NUR ---
pt RESTING QUIETLY IN BED WITH EYES CLOSED, ON RA. RR EVEN AND UNLABORED, NO DISTRESS NOTED. BED ALARM ON AND CALL LIGHT IN REACH. pt RESTING ON RIGHT SIDE.
--- NOTE | 2022-05-30 23:41 | NUR ---
PT REPORTS PAIN IN HER KNEES, THROBBING PAIN AT 9/10. PT DENIED PRN OF TYLENOL. PLACED PILLOW UNDER PT KNEES FOR COMFORT AND RELIEF. PT IS NOW RESTING IN BED WITH CALL LIGHT WITHIN REACH.
--- NOTE | 2022-05-31 01:48 | NUR ---
new orders received and iv fluids hung per md orders, iv site repeatedly distal occludes-current iv flushes but is very positional. rn mike now in room to attempt new iv per pt request. assessment complete, pt reports some dizziness in bed, vss. guerline patent, uo wnl. call light in reach, pt able to turn self in bed. call light in reach, will continue to monitor. bed alarm on.
--- NOTE | 2022-05-31 03:47 | NUR ---
assistance provided with tv. iv site wnl, fluids infusing as directed, iv site wnl. no additional needs verbalized, call light in reach.
--- NOTE | 2022-05-31 05:10 | NUR ---
PT RESTING IN BED. VITALS AND IS AND OS COMPLETE. NO NEEDS AT THIS TIME. CALL LIGHT WITHIN REACH.
--- NOTE | 2022-05-31 06:33 | NUR ---
CONTINUOUS FLUID OF NORMAL SALINE AT 250 ML/HR. IV SITE REMAINS PATENT AND FREE OF INFILTRATION OR REDNESS, PT REPORTS NO PAIN WITH INFUSION. PT IS RESTING IN BED, CALL LIGHT WITHIN REACH, BED ALARM ON, NO FURTHER NEEDS AT THIS TIME.
--- NOTE | 2022-05-31 07:03 | NUR ---
ANSWERED PT CALL LIGHT REGARDING HEADACHE. PT STATES THROBBING HEADACHE THAT SHE RATES AN 8/10. SHE REQUESTS TYLENOL PRN (SEE EMAR). TYLENOL ADMINISTERED WITH NO DIFFICULTY SWALLOWING. ALSO PROVIDED ICE PACK TO PT. PT IS RESTING IN BED, CALL LIGHT WITHIN REACH, BED ALARM ON, NO FURTHER NEEDS AT THIS TIME.
--- NOTE | 2022-05-31 07:43 | NUR ---
PT SITTING IN BED. BS TAKEN. NO NEEDS AT THIS TIME. CALL LIGHT WITHIN REACH.
--- NOTE | 2022-05-31 08:27 | NUR ---
PT ASSISTED TO CHAIR FROM BED WITH 1 PA PIVOT. WARM BLANKET GIVEN. BED MADE. NO NEEDS AT THIS TIME. CALL LIGHT WITHIN REACH.
--- NOTE | 2022-05-31 10:24 | NUR ---
PT SITTING IN CHAIR. VITALS AND IS AND OS COMPLETE. PT ASSISTED TO TOILET BY 1 PA PIVOT. PT HAD BM. STOOL SAMPLE COLLECTED AND LABELED. STOOL SAMPLE GIVEN TO COLLECTION SYSTEMS CONSULTANT. PT ASSISTED TO SHOWER CHAIR. 1 PA PIVOT. SHOWER GIVEN. NEW GOWN AND SOCKS PUT ON. HAIR COMBED. PT ASSISTED BACK TO BED. 1 PA PIVOT. PT PROVIDED WARM BLANKET. RN NOTIFIED THAT PT SHOWER COMPLETE AND THAT STOOL SAMPLE WAS COLLECTED. NO FURTHER NEEDS. CALL LIGHT WITHIN REACH.
--- NOTE | 2022-05-31 10:26 | NUR ---
Patient back in bed from having a shower. Patient denies pain at this time, no distress. IV site patent, fluids infusing per provider order. OT working with patient at this time. No current needs, personal supplies and call light within reach.
--- NOTE | 2022-05-31 11:54 | NUR ---
PT IN BED. BS TAKEN. NO NEEDS AT THIS TIME. CALL LIGHT WITHIN REACH.
--- NOTE | 2022-05-31 12:55 | NUR ---
Batres catheter removed at this time per Dr. Masterson's verbal report. Batres removed at this time, balloon deflated prior to removal. Batres cath tip intact.
--- NOTE | 2022-06-01 15:49 | EKG ---
[facility] [address] [place] [address] Signed Sinus rhythm with 1st degree AV block Low voltage QRS Nonspecific T wave abnormality Abnormal ECG When compared with ECG of 01-DEC-2019 11:15, No significant change was found Confirmed by PAULA DÍAZ MD ([id number]) on 06/01/2022 3:49:18 PM Electronically Signed By: PAULA DÍAZ MD 06/01/22 1549 PATIENT NAME: ERIK CHAVEZ Electrocardiogram DATE OF : 45 PHYSICIAN: PAULA DÍAZ MD REPORT #: [id number] REPORT IS CONFIDENTIAL AND NOT TO BE RELEASED WITHOUT AUTHORIZATION
== END 2022-05-31 13:05 | disposition home or self-care (01) ==
LOC: ED 09:49 → MS 09:52
PROVIDERS: ADMIT Family Medicine; ATTEND Family Medicine
DX: N17.9 Acute kidney failure, unspecified (principal); R19.7 Diarrhea, unspecified; E87.5 Hyperkalemia; E11.40 Type 2 diabetes mellitus with diabetic neuropathy, unspecified; E11.22 Type 2 diabetes mellitus with diabetic chronic kidney disease; I12.9 Hypertensive chronic kidney disease with stage 1 through stage 4 chronic kidney disease, or unspecified chronic kidney disease; N18.9 Chronic kidney disease, unspecified; G30.9 Alzheimer's disease, unspecified; F02.80 Dementia in other diseases classified elsewhere, unspecified severity, without behavioral disturbance, psychotic disturbance, mood disturbance, and anxiety; I25.2 Old myocardial infarction; Z88.0 Allergy status to penicillin; Z88.1 Allergy status to other antibiotic agents; Z88.2 Allergy status to sulfonamides; Z87.891 Personal history of nicotine dependence; Z88.5 Allergy status to narcotic agent; Z88.8 Allergy status to other drugs, medicaments and biological substances; Z79.4 Long term (current) use of insulin; Z79.84 Long term (current) use of oral hypoglycemic drugs; Z20.822 Contact with and (suspected) exposure to COVID-19
CPT/HCPCS: 36415; 80053; 81001; 83735; 85025; 87502; 93005; 93010; A9270; C9803; J7030; U0003

== ENCOUNTER 2022-09-23 23:56 | Emergency (ER) | payer MEDICARE, OTHER ==
[~2022-09-23] VITALS: Ht 180.3 cm; Wt 77.0 kg
[~2022-09-23 23:56] MED LIST changes: +DULCOLAX10 MG PR; +JARDIANCE25 MG PO; +MILK OF MA400 MG/5 M PO; +PEPCID20 MG PO; +PEPTO-BISM262 MG/15 PO; +SENNA-S 8.6-501 EACH PO; +TUMS200 MG PO; +VITAMIN D31250 MC1 PO
[2022-09-24] MEDS ORDERED: CELECOXIB100 MG PO (00:30)
[2022-09-24] MEDS ORDERED: PRIMIDONE50 MG PO (00:33)
[2022-09-24] MEDS ORDERED: CIPRO500 MG PO (01:44)
--- NOTE | 2022-09-24 21:37 | EKG ---
[facility] [address] [facility] [place] [address] Signed Sinus tachycardia with 1st degree AV block Nonspecific ST and T wave abnormality Prolonged QT Abnormal ECG When compared with ECG of 30-MAY-2022 13:10, QT has lengthened Confirmed by Tamiko Figueroa MD () on 09/24/2022 9:37:27 PM Electronically Signed By: TAMIKO FIGUEROA MD 09/24/22 2137 PATIENT NAME: ERIK CHAVEZ Electrocardiogram DATE OF : 45 PHYSICIAN: TAMIKO FIGUEROA MD REPORT #: [id number] REPORT IS CONFIDENTIAL AND NOT TO BE RELEASED WITHOUT AUTHORIZATION
== END 2022-09-24 03:52 | disposition home or self-care (01) ==
LOC: ED 23:56
DX: R29.6 Repeated falls (principal); N39.0 Urinary tract infection, site not specified; R10.2 Pelvic and perineal pain; I25.2 Old myocardial infarction; I10 Essential (primary) hypertension; M79.7 Fibromyalgia; Z88.0 Allergy status to penicillin; Z91.041 Radiographic dye allergy status; Z91.048 Other nonmedicinal substance allergy status; Z88.1 Allergy status to other antibiotic agents; Z88.6 Allergy status to analgesic agent; Z91.040 Latex allergy status; Z88.2 Allergy status to sulfonamides; Z88.7 Allergy status to serum and vaccine; Z88.8 Allergy status to other drugs, medicaments and biological substances; Z79.899 Other long term (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; Z79.4 Long term (current) use of insulin
CPT/HCPCS: 36415; 70450; 71045; 72125; 72170; 80053; 81001; 83605; 83880; 84484; 85025; 87502; 93005; 93010; 99285-25; A9270; G0480; J7030; U0003